=== PATIENT | female | born 1965 | race Caucasian/White ===

== ENCOUNTER 2016-06-01 15:09 | Emergency (ER) | payer OTHER ==
[2016-06-01 15:16] VITALS: TEMP 98; BMI 28.3
[2016-06-01] MEDS ORDERED: KETOROLAC TROMETHAMINE 30 MG/1 ML VIAL IVPUSH ONE (15:21)
--- NOTE | 2016-06-01 15:28 | PDOC ---
[id number] 100 06/01/16 15:14 06/01/16 15:14 06/01/16 15:14 06/01/16 15:14 06/01/16 15:14 ED Treatment Course - LABORATORY CBC & Chemistry Diagram: 06/01/16 15:40 06/01/16 15:40 Progress Note - Progress Note Progress Note: brief triage assessment hx of kidney stones with lithotripsy many years ago, presents with left flank pain pm and off for 2 weeks, now steady since 2 days ago. Nausea but no vomiting since 2 days ago. No fever. Pain radiates to the left lower quadrant. PMH: shoulder surgery tubal ligation x 3 for post BTL kidney stones adhesions with abd surgery x 2 exam: L flank tenderness, abd soft assess: renate and flank pain, hx of renal colic labs urine and pain meds/fluids ordered to main ED for further eval *DC/Admit/Observation/Transfer Diagnosis at time of Disposition: Left flank pain - Discharge Dispostion Disposition: HOME - Prescriptions Prescriptions: Diazepam [Valium] 5 mg PO Q8H PRN #15 tablet MDD 3 PRN Reason: Muscle Spasms - Referrals Referrals: Elizabeth Donaldson MD [Primary Care Provider] - - Patient Instructions Printed Discharge Instructions: DI for Muscle Strain Additional Instructions: Please take medication as prescribed. As discussed, do not drive or operate machinery while taking this medication. Please follow up with orthopedics this week. If you experience any loss of sensation, numbness, or tingling to your legs, loss of madelaine or bladder function, persistent vomiting or diarrhea, fever , headache, shortness of breath, chest pain, palpitations, or any new or worsening symptoms, please return to the ER.
[2016-06-01] MEDS ORDERED: SODIUM CHLORIDE 1,000 ML IV SCH (15:30)
--- NOTE | 2016-06-01 15:43 | PDOC ---
[id number] flank pain Time Seen by Provider: 06/01/16 15:20 History Source: Patient Exam Limitations: No Limitations - History of Present Illness Initial Comments: 06/01/16 15:43 CHIEF COMPLAINT: Flank pain HISTORY OF PRESENT ILLNESS: This is a 51 year old female with a distant history of kidney stones s/p lithotripsy, c/s and tubal ligation x 3 (initial failure) complicated by adhesions, and migraine headaches who presents complaining of three weeks of left flank pain. The pain was initially intermittent, but is now constant, acutely worse, and radiates to the LLQ. She reports nausea but no vomiting. She complains of constipation, but has been able to have a bowel movement today. She denies dysuria/hematuria, fevers/chills, or any other symptoms. The pain is reminiscent of her prior kidney stones. Vital signs on arrival are unremarkable. PCP is Dr. Flores. Patient is a non-smoker. REVIEW OF SYSTEMS: GENERAL/CONSTITUTIONAL: No fever or chills. No weakness. No weight change. CARDIOVASCULAR: No chest pain or palpitations. RESPIRATORY: No cough, wheezing, or shortness of breath. GASTROINTESTINAL: Nausea, constipation. GENITOURINARY: See HPI. MUSCULOSKELETAL: No joint or muscle swelling or pain. No neck or back pain. SKIN: No rash or easy bruising. NEUROLOGIC: No headache, vertigo, loss of consciousness, or loss of sensation. PSYCHIATRIC: No depression or anxiety. ENDOCRINE: No increased thirst. No abnormal weight change. HEMATOLOGIC/LYMPHATIC: No anemia, easy bleeding, or history of blood clots. ALLERGIC/IMMUNOLOGIC: History of demerol and morphine intolerance (vomiting, syncope). PHYSICAL EXAM: GENERAL: The patient is awake, alert, and fully oriented, in no acute distress. ENT: Pupils equal, round and reactive to light, extraocular movements intact, sclera anicteric, conjunctiva clear. Neck supple. LUNGS: Clear to auscultation bilaterally. Normal excursion. No respiratory distress or use of accessory muscles. CV: RRR, S1/S2, no MRG. Cap refill < 2 sec. ABDOMEN: Soft, non-distended, LLQ tenderness to deep palpation. Left CVA tenderness. EXTREMITIES: Normal range of motion, no edema. NEUROLOGICAL: Normal speech, normal gait. CN II-XII grossly intact. PSYCH: Normal mood, normal affect. SKIN: Warm, dry, normal turgor, no rashes or lesions noted. Past History - Past Medical History Allergies/Adverse Reactions: Allergies Allergy/AdvReac Type Severity Reaction Status Date / Time meperidine HCl [From Demerol] Allergy Verified 06/01/16 15:13 morphine Allergy Verified 06/01/16 15:13 Home Medications: Ambulatory Orders Diazepam [Valium] 5 mg PO Q8H PRN #15 tablet MDD 3 06/01/16 Anemia: No Asthma: Yes Cancer: No Cardiac Disorders: Yes (MVP) CVA: No COPD: No CHF: No Dementia: No Diabetes: No GI Disorders: Yes Disorders: Yes (ENDOMETRIOSIS) HTN: No Hypercholesterolemia: Yes Kidney Stones: Yes Liver Disease: No Seizures: No Thyroid Disease: Yes - Surgical History Abdominal Surgery: Yes (ADHESIONS) Appendectomy: No Cardiac Surgery: No Cholecystectomy: No Lung Surgery: No Neurologic Surgery: (scar tissue) Orthopedic Surgery: No - Immunization History Immunization Up to Date: Yes - Psycho/Social/Smoking Cessation Hx Anxiety: No Suicidal Ideation: No Smoking History: Never smoked Have you smoked in the past 12 months: No If you are a former smoker, when did you quit?: 20 YEARS [id number] WEEK Information on smoking cessation initiated: No Hx Alcohol Use: No Drug/Substance Use Hx: No Substance Use Type: None Hx Substance Use Treatment: No *Physical Exam - Vital Signs Last Vital Signs Temp Pulse Resp BP Pulse Ox 98.0 F 77 18 122/82 100 06/01/16 15:14 06/01/16 15:14 06/01/16 15:14 06/01/16 15:14 06/01/16 15:14 ED Treatment Course - LABORATORY CBC & Chemistry Diagram: 06/01/16 15:40 06/01/16 15:40 Medical Decision Making - Medical Decision Making 06/01/16 16:09 A/P: 51 year old female with left flank pain radiating to the LLQ, associated with nausea and constipation. Differential includes renal colic (patient states pain today is prior to her previous episodes), pyelonephritis, less likely diverticulitis or SBO. 1. UA/culture 2. Basic labs 3. Toradol 30mg IVP for pain 4. Renal u/s to r/o hydronephrosis 5. Re-evaluate U/s: no hydronephrosis. Patient's pain is worse than on presentation despite receiving Toradol. UA negative for blood. Will obtain CTAP. *DC/Admit/Observation/Transfer Diagnosis at time of Disposition: Left flank pain - Discharge Dispostion Disposition: HOME - Prescriptions Prescriptions: Diazepam [Valium] 5 mg PO Q8H PRN #15 tablet MDD 3 PRN Reason: Muscle Spasms - Referrals Referrals: Elizabeth Donaldson MD [Primary Care Provider] - - Patient Instructions Printed Discharge Instructions: DI for Muscle Strain Additional Instructions: Please take medication as prescribed. As discussed, do not drive or operate machinery while taking this medication. Please follow up with orthopedics this week. If you experience any loss of sensation, numbness, or tingling to your legs, loss of madelaine or bladder function, persistent vomiting or diarrhea, fever , headache, shortness of breath, chest pain, palpitations, or any new or worsening symptoms, please return to the ER.
[2016-06-01 15:49] LABS: BASOPHIL 0.4 % (0-2.0); EOSINOPHIL 2.4 % (0-4.5); MCH 29.3 pg (25.7-33.7); MCHC 32.8 g/dl (32.0-36.0); MEAN CELL VOLUME 89.4 fl (80-96); MEAN PLT VOLUME 9.3 fl (7.5-11.1); NEUTROPHILS 49.7 % (42.8-82.8); PLATELET COUNT 177 K/MM3 (134-434); RDW 14.2 % (11.6-15.6); WHITE BLOOD COUNT 8.3 K/mm3 (4.0-10.0)
[2016-06-01] MEDS ORDERED: KETOROLAC TROMETHAMINE 30 MG/1 ML VIAL ONE (15:49)
[2016-06-01 16:15] LABS: ANION GAP 11 (8-16); CALCIUM 9.6 mg/dL (8.5-10.1); CO2 29 mmol/L (21-32); CREATININE 0.8 mg/dL (0.55-1.02); GLUCOSE,RANDOM 100 mg/dL (74-106); SGOT/AST 14 U/L (15-37); SGPT/ALT 19 U/L (12-78)
[2016-06-01 16:16] LABS: ALK PHOS 74 U/L (45-117); BILIRUBIN,TOTAL 0.2 mg/dL (0.2-1.0); TOT PROT 7.8 g/dl (6.4-8.2)
[2016-06-01 17:52] LABS: URINE APPEARANCE CLEAR; URINE BILIRUBIN NEGATIVE (NEGATIVE); URINE BLOOD NEGATIVE (NEGATIVE); URINE COLOR STRAW; URINE GLUCOSE (UA) NEGATIVE (NEGATIVE); URINE KETONE NEGATIVE (NEGATIVE); URINE LEUK ESTERASE NEGATIVE (NEGATIVE); URINE NITRITE NEGATIVE (NEGATIVE); URINE PROTEIN NEGATIVE (NEGATIVE); URINE UROBILINOGEN NEGATIVE E.U./dl (0.2-1.0)
[2016-06-01] MEDS ORDERED: ACETAMINOPHEN 1000 MG/100 ML VIAL (NON FORMULARY) IVPB ONE (18:17)
[2016-06-01] MEDS ORDERED: ACETAMINOPHEN INJECTION 100 ML IVPB ONE (18:35)
[2016-06-01] MEDS ORDERED: HYDROmorphone HCL CARPU-JECT 1 MG/1 ML DISP.SYRIN IVPUSH ONE (19:25)
[2016-06-01] MEDS ORDERED: ONDANSETRON 4 MG/2 ML VIAL IVPUSH ONE (19:25)
[2016-06-01] MEDS ORDERED: ONDANSETRON 4 MG/2 ML VIAL ONE (19:38)
[2016-06-01] MEDS ORDERED: HYDROmorphone HCL CARPU-JECT 1 MG/1 ML DISP.SYRIN ONE (19:38)
[2016-06-01 19:48] VITALS: BP 120/73; PULSE 73
--- NOTE | 2016-06-01 20:02 | PDOC ---
*Physical Exam - Vital Signs Last Vital Signs Temp Pulse Resp BP Pulse Ox 98.0 F 73 18 120/73 99 06/01/16 15:14 06/01/16 19:47 06/01/16 19:47 06/01/16 19:47 06/01/16 19:47 - Physical Exam Comments: 06/01/16 21:15 Sign-out received from outgoing ER provider Aditi. Pt interviewed and examined. Ancillary studies reviewed. CT results negative. Patient continues to have marked tenderness to L flank/L lower back, now more localized to midline lumbar spine. Patient states he does not have true allergy to morphine, just that she "feels nauseous" when she gets it. -4 mg Zofran IV -0.5 mg Dilaudid Thoracic/lumbar spine x-ray to r/o bony pathology. X-rays negative for bony pathology. Discussed bone window of CT results with radiology MD Morocho, who confirms no evidence of bony patholgy. -5 mg Valium po Patient reassessed; states she is feeling much better. At this time she is sitting up in stretcher, talking to family and is well-appearing. Will discharge to home with Valium po prn rx, f/u with ortho. Advised patient to take meds as prescribed and not to drive or operate machinery while taking medication. Advised patient to f/u with orthopedics for possible MRI. Patient verbalized understanding and agrees to plan. 06/01/16 21:45 ED Treatment Course - LABORATORY CBC & Chemistry Diagram: 06/01/16 15:40 06/01/16 15:40 - ADDITIONAL ORDERS Additional order review: Laboratory Results 06/01/16 06/01/16 17:40 15:40 Sodium 142 Potassium 4.3 Chloride 102 Carbon Dioxide 29 Anion Gap 11 BUN 12 D Creatinine 0.8 Creat Clearance w eGFR > 60 Random Glucose 100 D Calcium 9.6 Total Bilirubin 0.2 D AST 14 L D ALT 19 Alkaline Phosphatase 74 Total Protein 7.8 Albumin 4.0 Urine Color Straw Urine Appearance Clear Urine pH 5.0 Ur Specific [place] 1.014 Urine Protein Negative Urine Glucose (UA) Negative Urine Ketones Negative Urine Blood Negative Urine Nitrite Negative Urine Bilirubin Negative Urine Urobilinogen Negative Ur Leukocyte Esterase Negative 06/01/16 15:40 RBC 4.64 MCV 89.4 MCHC 32.8 RDW 14.2 MPV 9.3 Neutrophils % 49.7 D Lymphocytes % 39.9 D Monocytes % 7.6 Eosinophils % 2.4 Basophils % 0.4 - Medications Given in the ED: ED Medications Discontinued Medications Generic Name Dose Route Start Last Admin Trade Name Sylvia PRN Reason Stop Dose Admin Acetaminophen 1,000 mg 06/01/16 18:17 06/01/16 18:38 Ofirmev Injection - IVPB 06/01/16 18:18 1,000 mg ONCE ONE Administration Hydromorphone HCl 0.5 mg 06/01/16 19:25 06/01/16 19:47 Dilaudid Injection - IVPUSH 06/01/16 19:26 0.5 mg ONCE ONE Administration Ketorolac Tromethamine 30 mg 06/01/16 15:21 06/01/16 15:57 Toradol Injection - IVPUSH 06/01/16 15:22 30 mg ONCE ONE Administration Ondansetron HCl 4 mg 06/01/16 19:25 06/01/16 19:47 Zofran Injection IVPUSH 06/01/16 19:26 4 mg ONCE ONE Administration *DC/Admit/Observation/Transfer Diagnosis at time of Disposition: Muscle spasm - Discharge Dispostion Disposition: HOME Condition at time of disposition: Stable Admit: No - Prescriptions Prescriptions: Diazepam [Valium] 5 mg PO Q8H PRN #15 tablet MDD 3 PRN Reason: Muscle Spasms - Referrals Referrals: Elizabeth Donaldson MD [Primary Care Provider] - - Patient Instructions Printed Discharge Instructions: DI for Muscle Strain Additional Instructions: Please take medication as prescribed. As discussed, do not drive or operate machinery while taking this medication. Please follow up with orthopedics this week. If you experience any loss of sensation, numbness, or tingling to your legs, loss of madelaine or bladder function, persistent vomiting or diarrhea, fever , headache, shortness of breath, chest pain, palpitations, or any new or worsening symptoms, please return to the ER.
[2016-06-01] MEDS ORDERED: diazePAM 5 MG TABLET PO ONE (21:02)
[2016-06-01] MEDS ORDERED: diazePAM 5 MG TABLET ONE (21:10)
== END 2016-06-01 22:07 | disposition home or self-care (01) ==
LOC: JER 15:09
PROC: 3E0337Z Introduction of Electrolytic and Water Balance Substance into Peripheral Vein, Percutaneous Approach (ICD-10-PCS; principal; 2016-06-01)
PROC: 3E033NZ Introduction of Analgesics, Hypnotics, Sedatives into Peripheral Vein, Percutaneous Approach (ICD-10-PCS; 2016-06-01)
PROC: 3E0333Z Introduction of Anti-inflammatory into Peripheral Vein, Percutaneous Approach (ICD-10-PCS; 2016-06-01)
PROC: 3E033GC Introduction of Other Therapeutic Substance into Peripheral Vein, Percutaneous Approach (ICD-10-PCS; 2016-06-01)
DX: M62.830 Muscle spasm of back (principal)
CPT/HCPCS: 36415; 72070-TC; 72100-TC; 74176; 76775-TC; 80053; 81003; 85025; 87086; 96361; 96374; 96375; 99282-25

== ENCOUNTER 2016-12-03 20:10 | Emergency (ER) | payer OTHER ==
[2016-12-03 20:16] VITALS: BP 145/93; PULSE 61; TEMP 98.7; BMI 30.2
--- NOTE | 2016-12-03 21:17 | PDOC ---
History of Present Illness - History of Present Illness Initial Comments: 12/03/16 21:18 The patient is a 51 year old female with history of nephrolithiasis, endometriosis, hyperlipidemia, and MVP, who presents to the ED complaining of diffuse abdominal discomfort with associated nausea for approximately 1 day. She also complains of associated nonbloody, nonbilious vomiting and loose stools after eating. She also admits to feeling slightly constipated. No alleviating factors. She states her abdominal discomfort is somewhat similar to previous kidney stones, but is not the same. The patient also complains of diffuse back pain for several weeks. The patient denies any fever or chills. She denies dysuria or hematuria. She denies chest pain or shortness of breath. She denies any numbness or tingling. <Linnea Paredes - Last Filed: 12/04/16 00:58> - General History Source: Patient <Moise Veloz - Last Filed: 12/04/16 01:10> - General Chief Complaint: Nausea/Vomiting Stated Complaint: STOMACH PAIN,VOMITING Time Seen by Provider: 12/03/16 21:13 Past History <Linnea Paredes - Last Filed: 12/04/16 00:58> - Past Medical History Anemia: No Asthma: Yes Cancer: No Cardiac Disorders: Yes (MVP) CVA: No COPD: No CHF: No Dementia: No Diabetes: No GI Disorders: Yes Disorders: Yes (ENDOMETRIOSIS) HTN: No Hypercholesterolemia: Yes Kidney Stones: Yes Liver Disease: No Seizures: No Thyroid Disease: Yes - Surgical History Abdominal Surgery: Yes (ADHESIONS) Appendectomy: No Cardiac Surgery: No Cholecystectomy: No Lung Surgery: No Neurologic Surgery: (scar tissue) Orthopedic Surgery: No - Immunization History Immunization Up to Date: Yes - Psycho/Social/Smoking Cessation Hx Anxiety: No Suicidal Ideation: No Smoking History: Never smoked Have you smoked in the past 12 months: No If you are a former smoker, when did you quit?: 20 YEARS [id number] WEEK Information on smoking cessation initiated: No Hx Alcohol Use: No Drug/Substance Use Hx: No Substance Use Type: None Hx Substance Use Treatment: No <Moise Veloz - Last Filed: 12/04/16 01:10> - Past Medical History Allergies/Adverse Reactions: Allergies Allergy/AdvReac Type Severity Reaction Status Date / Time meperidine HCl [From Demerol] Allergy Verified 12/03/16 20:16 morphine Allergy Verified 12/03/16 20:16 Home Medications: Ambulatory Orders Albuterol Sulfate Inhaler - [Ventolin Hfa Inhaler -] 1 - 2 inh PO QID PRN Ibuprofen 800 mg PO TID #30 tablet 12/04/16 Methocarbamol [Robaxin -] 500 mg PO TID #30 tablet 12/04/16 Oxycodone HCl/Acetaminophen [Percocet 5-325 mg Tablet] 1 - 2 tab PO Q4H #20 tablet MDD 4 12/04/16 Review of Systems - Review of Systems Able to Perform ROS?: Yes Comments:: 12/03/16 21:24 GENERAL/CONSTITUTIONAL: No fever or chills. No weakness. HEAD, EYES, EARS, NOSE AND THROAT: No change in vision. No ear pain or discharge. No sore throat CARDIOVASCULAR: No chest pain or shortness of breath. RESPIRATORY: No cough, wheezing, or hemoptysis. GASTROINTESTINAL:+diffuse abdominal pain, nausea, NBNB vomiting, constipation. No melena or hematochezia. GENITOURINARY: No dysuria, frequency, or change in urination. MUSCULOSKELETAL: +diffuse back pain. No joint swelling or pain. No neck pain. SKIN: No rash NEUROLOGIC: No headache, vertigo, loss of consciousness, or change in strength/ sensation. ENDOCRINE: No increased thirst. No abnormal weight change. HEMATOLOGIC/LYMPHATIC: No anemia, easy bleeding, or history of blood clots. ALLERGIC/IMMUNOLOGIC: No hives or skin allergy. <Linnea Paredes - Last Filed: 12/04/16 00:58> *Physical Exam - Vital Signs Last Vital Signs Temp Pulse Resp BP Pulse Ox 98.7 F 61 18 145/93 100 12/03/16 20:11 12/03/16 20:11 12/03/16 20:11 12/03/16 20:11 12/03/16 20:11 - Physical Exam Comments: 12/03/16 21:26 GENERAL: Awake, alert, and fully oriented, in no acute distress HEAD: No signs of trauma EYES: PERRLA, EOMI, sclera anicteric, conjunctiva clear ENT: Auricles normal inspection, hearing grossly normal, nares patent, oropharynx clear without exudates. Moist mucosa NECK: Normal ROM, supple, no lymphadenopathy, JVD, or masses LUNGS: Breath sounds equal, clear to auscultation bilaterally. No wheezes, and no crackles HEART: Regular rate and rhythm, normal S1 and S2, no murmurs, rubs or gallops ABDOMEN: Soft, no tenderness to palpation in all four quadrants, normoactive bowel sounds. No guarding, no rebound. No masses BACK: +Bilateral paraspinal tenderness, slightly worse on the right than the left. No midline tenderness. EXTREMITIES: Normal range of motion, no edema. No clubbing or cyanosis. No cords, erythema, or tenderness NEUROLOGICAL: Cranial nerves II through XII grossly intact. Normal speech, normal gait SKIN: Warm, Dry, normal turgor, no rashes or lesions noted. <Linnea Paredes - Last Filed: 12/04/16 00:58> - Vital Signs Last Vital Signs Temp Pulse Resp BP Pulse Ox 98.7 F 61 18 145/93 100 12/03/16 20:11 12/03/16 20:11 12/03/16 20:11 12/03/16 20:11 12/03/16 20:11 <Moise Veloz - Last Filed: 12/04/16 01:10> ED Treatment Course - RADIOLOGY Radiology Studies Ordered: 12/04/16 00:59 CT of abdomen and pelvis without contrast, preliminary reading by [facility] [employer] [facility] Radiograph Interpretation: 12/04/16 00:59 IMPRESSION: Benign renal cortical cyst measuring 1.6 cm arising from the posterior pole of left kidney. Multiple phleboliths are noted within the pelvis. Disc degeneration at the L5-S1 level, with some loss of disc height and small posterior disc bulge. The study is otherwise unremarkable. . THIS DOCUMENT HAS BEEN ELECTRONICALLY SIGNED Florentino Javier MD. 12/04/2016 00:56 EST <Linnea Paredes - Last Filed: 12/04/16 00:58> Medical Decision Making - Medical Decision Making 12/04/16 01:05 Dr. Veloz: The scribe's documentation has been prepared under my direction and personally reviewed by me in its entirery. I confirm that the note above accurately reflects all work, treatment, procedures, and medical decision making performed by me. Pt found to have bulging disc to L5-S1. Neurologically intact. Pt to follow up with pcp and possible neurosurgery <Moise Veloz - Last Filed: 12/04/16 01:10> *DC/Admit/Observation/Transfer - Attestations Scribe Attestion: 12/03/16 21:28 Documentation prepared by Linnea Paredes, acting as medical chief technician for Moise Veloz MD. <Linnea Paredes - Last Filed: 12/04/16 00:58> - Discharge Dispostion Admit: No <Moise Veloz - Last Filed: 12/04/16 01:10> Diagnosis at time of Disposition: Bulging lumbar disc - Discharge Dispostion Disposition: HOME Condition at time of disposition: Stable - Prescriptions Prescriptions: Ibuprofen 800 mg PO TID #30 tablet Oxycodone HCl/Acetaminophen [Percocet 5-325 mg Tablet] 1 - 2 tab PO Q4H #20 tablet MDD 4 Methocarbamol [Robaxin -] 500 mg PO TID #30 tablet - Referrals Referrals: Elizabeth Donaldson MD [Primary Care Provider] - Manohar Drummond MD, FAANS [Staff Physician] - - Patient Instructions Printed Discharge Instructions: DI for Herniated Disc
[2016-12-03] MEDS ORDERED: KETOROLAC TROMETHAMINE 60 MG/2 ML VIAL IM ONE (21:18)
[2016-12-03] MEDS ORDERED: KETOROLAC TROMETHAMINE 60 MG/2 ML VIAL ONE (21:46)
[2016-12-03 21:50] LABS: URINE APPEARANCE CLEAR; URINE BILIRUBIN NEGATIVE (NEGATIVE); URINE BLOOD 2+ (NEGATIVE); URINE COLOR LTYELLOW; URINE GLUCOSE (UA) NEGATIVE (NEGATIVE); URINE KETONE NEGATIVE (NEGATIVE); URINE LEUK ESTERASE NEGATIVE (NEGATIVE); URINE NITRITE NEGATIVE (NEGATIVE); URINE PROTEIN NEGATIVE (NEGATIVE); URINE UROBILINOGEN NEGATIVE mg/dL (0.2-1.0)
[2016-12-03 22:06] LABS: URINE MUCUS RARE; URINE RBC 2 /hpf (0-3); URINE WBC 1 /hpf (3-5)
[2016-12-04] MEDS ORDERED: ALBUTEROL SO4 0.083% IH SOL 2.5 MG/3 ML VIAL.NEB. NEB ONE (00:03)
[2016-12-04] MEDS ORDERED: ALBUTEROL SO4 2.5/IPRATROPIUM 0.5 INH SOL 3 ML VIAL.NEB. NEB ONE (00:04)
== END 2016-12-04 01:13 | disposition home or self-care (01) ==
LOC: JER 20:10
PROC: 3E0233Z Introduction of Anti-inflammatory into Muscle, Percutaneous Approach (ICD-10-PCS; principal; 2016-12-03)
DX: M51.06 Intervertebral disc disorders with myelopathy, lumbar region (principal); E78.5 Hyperlipidemia, unspecified; I34.1 Nonrheumatic mitral (valve) prolapse; J45.909 Unspecified asthma, uncomplicated; Z87.442 Personal history of urinary calculi; Z88.6 Allergy status to analgesic agent
CPT/HCPCS: 74176; 81003; 81015; 84703; 87086; 99282-25

== ENCOUNTER 2017-03-12 12:37 | Emergency (ER) | payer OTHER ==
[2017-03-12 13:31] VITALS: BP 132/49; PULSE 68; TEMP 97.8; BMI 27.4
[2017-03-12] MEDS ORDERED: KETOROLAC TROMETHAMINE 30 MG/1 ML VIAL IVPUSH ONE (16:16)
--- NOTE | 2017-03-12 16:16 | PDOC ---
History of Present Illness <Flavia Langley - Last Filed: 03/12/17 16:47> - General History Source: Patient Exam Limitations: No Limitations - History of Present Illness Travel History: No Initial Comments: 03/12/17 16:17 The patient is a 52y F hx of kidney stones, endometriosis, HL, MVP, back pain, chronic history of constipation, presents with multiple complaints - among which are several months of constipation, lower back pain, but new to her complaints are abdominal pain and rectal bleeding. The pt states that her constipation is chronic and she has always had difficulty with stooling regularly and having hard stools. But for the past 1.5 weeks, she notes that she feels a L sided back pain that seems to worsen, and feels like she neds to go to the bathroom, but when she goes to the bathroom and tries to have a BM, she has dark red stool from her anus. She notes that it stops spontaneously after she wipes. PT endorses some nausea, but denies any fever/chills. no associated numbness/tingling/weakness, urinary symptoms. No chest pain, sob. PMD: Mark <Enio Dubose - Last Filed: 03/12/17 21:51> - General Chief Complaint: Rectal Bleed Stated Complaint: BACK PAIN Time Seen by Provider: 03/12/17 16:05 Past History <Flavia Langley - Last Filed: 03/12/17 16:47> - Past Medical History Anemia: No Asthma: Yes Cancer: No Cardiac Disorders: Yes (MVP) CVA: No COPD: No CHF: No DVT: No Dementia: No Diabetes: No Dialysis: No GI Disorders: Yes Disorders: Yes (ENDOMETRIOSIS) HTN: No Hypercholesterolemia: Yes Kidney Stones: Yes Liver Disease: No Psychiatric Problems: No Seizures: No Thyroid Disease: Yes Lung CA: No - Surgical History Abdominal Surgery: Yes (ADHESIONS) Appendectomy: No Cardiac Surgery: No Cholecystectomy: No Lung Surgery: No Neurologic Surgery: (scar tissue) Orthopedic Surgery: No - Immunization History Immunization Up to Date: Yes - Suicide/Smoking/Psychosocial Hx Smoking History: Former smoker Have you smoked in the past 12 months: No If you are a former smoker, when did you quit?: 25 yrs ago Information on smoking cessation initiated: No Hx Alcohol Use: No Drug/Substance Use Hx: No Substance Use Type: None Hx Substance Use Treatment: No <Enio Dubose - Last Filed: 03/12/17 21:51> - Past Medical History Allergies/Adverse Reactions: Allergies Allergy/AdvReac Type Severity Reaction Status Date / Time meperidine HCl [From Demerol] Allergy Verified 03/12/17 13:26 morphine Allergy Verified 03/12/17 13:26 Home Medications: Ambulatory Orders Cyclobenzaprine HCl [Flexeril -] 10 mg PO BID #21 tablet 03/12/17 Review of Systems - Review of Systems Able to Perform ROS?: Yes Comments:: 03/12/17 16:21 Constitutional - no reported Fever, Chills, HEENT: no reported vision changes, sore throat Respiratory: no reported cough, sob, hemoptysis Cardiac: no reported chest pain, palpitations, light headedness, leg swelling Abd/GI: +abd pain, blood per rectum, constipation no reported nausea, vomiting , , melena, diarrhea : no reported dysuria, frequency, discharge Musculskelatal - +back pain, no reported joint swelling skin - no reported bruising, erythema, rash neurological: no reported headache, numbness, focal weakness, tingling, ataxia, hematologic: no reported anemia, easy bruising, easy bleeding <Enio Dubose - Last Filed: 03/12/17 21:51> *Physical Exam - Vital Signs Last Vital Signs Temp Pulse Resp BP Pulse Ox 97.8 F 68 18 132/49 100 03/12/17 13:26 03/12/17 13:26 03/12/17 13:26 03/12/17 13:26 03/12/17 13:26 <Flavia Langley - Last Filed: 03/12/17 16:47> - Vital Signs Last Vital Signs Temp Pulse Resp BP Pulse Ox 97.8 F 68 18 132/49 100 03/12/17 13:26 03/12/17 13:26 03/12/17 13:26 03/12/17 13:26 03/12/17 13:26 - Physical Exam Comments: 03/12/17 16:24 GENERAL: The patient is awake, alert, and fully oriented, Nontoxic - in no acute distress. HEAD: Normocephalic, atraumatic. EYES: extraocular movements intact, sclera anicteric, conjunctiva clear. ENT: Normal voice, Moist mucous membranes. NECK: Normal range of motion, supple LUNGS: Breath sounds equal, clear to auscultation bilaterally. No wheezes, no rhonchi, no rales. HEART: Regular rate and rhythm, normal S1 and S2 without murmur, rub or gallop. ABDOMEN: Soft, very mild LLQ tenderness, normoactive bowel sounds. No guarding , no rebound. No CVA tenderness RECTAL: +external hemorroids w/o active bleeding, nonthrombosed, no tenderness/ massess, no stool in rectal vault, no signs of blood or melena EXTREMITIES: Normal range of motion, no edema. No clubbing or cyanosis. No cords, erythema, or tenderness. NEUROLOGICAL: No facial assymetry, Normal speech, PSYCH: Normal mood, normal affect. SKIN: Warm, Dry, normal turgor, <Enio Dubose - Last Filed: 03/12/17 21:51> ED Treatment Course - LABORATORY CBC & Chemistry Diagram: 03/12/17 17:00 03/12/17 17:00 <Enio Dubose - Last Filed: 03/12/17 21:51> Medical Decision Making - Medical Decision Making 03/12/17 16:26 pt presenting with combination of chronic constipation/rectal bleeding/abd pain suspect her sypmtoms may be secondary to a kidney stone resulting in her pain, and desire to stool, leading to her straining and bleeding form her hemorroids other thingson the differential includes diverticulosis, consider acs will send an ekg will give pt toradol for pain will ck cbc, cmp, lipase, ua likely imging will erasess the pt 03/12/17 21:[address] neg for any pathology suspect her back pain is secondary to herniated discs/sciatica no signs of kidney stones suspect her rectal bleeding secondary to hemorroids will c with pm dfu return precautions were discussed I discussed the physical exam findings, ancillary test results and final diagnoses with the patient. I answered all of the patient's questions. The patient was satisfied with the care received and felt comfortable with the discharge plan and treatment plan. The patient will call their primary care physician within 24 hours to arrange follow-up and will return to the Emergency Department with any new, persistent or worsening symptoms. <Enio Dubose - Last Filed: 03/12/17 21:51> *DC/Admit/Observation/Transfer <Flavia Langley - Last Filed: 03/12/17 16:47> - Discharge Dispostion Admit: No <Enio Dubose - Last Filed: 03/12/17 21:51> Diagnosis at time of Disposition: Sciatica Qualifiers: Laterality: left Qualified Code(s): M54.32 - Sciatica, left side - Discharge Dispostion Disposition: HOME Condition at time of disposition: Improved - Referrals Referrals: Elizabeth Donaldson MD [Primary Care Provider] - - Patient Instructions Printed Discharge Instructions: DI for Hemorrhoids, DI for Back Pain With Sciatica Additional Instructions: Return to the emergency department immediately with ANY new, persistent or worsening symptoms including numbness, tingling, weakness, fevers or any other concerns. Take ibuprofen (400mg)/tylenol(650mg) every 6 hours for 2 days. Take the flexeril as prescribed for your back pain/spasms. Apply heat to your sore muscles. Make sure that you are hydrating adequately, eating enough fiber to minimize or constipation. You MUST call and follow up with your doctor within 3 days for further evaluation of your symptoms. Your emergency department visit is not complete without a followup with your doctor for reevaluation.. Results were discussed with you. Please make sure your doctor reviews the results of your emergency evaluation. Print Language: YI - Post Discharge Activity
[2017-03-12] MEDS ORDERED: KETOROLAC TROMETHAMINE 30 MG/1 ML VIAL ONE (17:15)
[2017-03-12 17:17] LABS: BASOPHIL 0.5 % (0-2.0); EOSINOPHIL 2.2 % (0-4.5); MCH 29.5 pg (25.7-33.7); MCHC 32.9 g/dl (32.0-36.0); MEAN CELL VOLUME 89.5 fl (80-96); MEAN PLT VOLUME 8.5 fl (7.5-11.1); PLATELET COUNT 223 K/MM3 (134-434); RDW 15.1 % (11.6-15.6); WHITE BLOOD COUNT 7.8 K/mm3 (4.0-10.0)
[2017-03-12 17:28] LABS: URINE APPEARANCE SLCLOUDY; URINE BILIRUBIN NEGATIVE (NEGATIVE); URINE BLOOD 1+ (NEGATIVE); URINE COLOR LTYELLOW; URINE GLUCOSE (UA) NEGATIVE (NEGATIVE); URINE KETONE NEGATIVE (NEGATIVE); URINE NITRITE NEGATIVE (NEGATIVE); URINE PROTEIN NEGATIVE (NEGATIVE); URINE UROBILINOGEN NEGATIVE mg/dL (0.2-1.0)
[2017-03-12 17:43] LABS: ALBUMIN 3.8 g/dl (3.4-5.0); ANION GAP 5 (8-16); CALCIUM 9.3 mg/dL (8.5-10.1); CO2 29 mmol/L (21-32); CREATININE 0.7 mg/dL (0.55-1.02); GLUCOSE,RANDOM 81 mg/dL (74-106); SGOT/AST 10 U/L (15-37); SGPT/ALT 17 U/L (12-78)
[2017-03-12 17:45] LABS: ALK PHOS 86 U/L (45-117); BILIRUBIN,TOTAL 0.5 mg/dL (0.2-1.0); TOT PROT 7.7 g/dl (6.4-8.2)
[2017-03-12 18:35] LABS: URINE HYALINE CAST 1 /lpf; URINE MUCUS RARE; URINE RBC <1 /hpf (0-3); URINE WBC 1 /hpf (3-5)
[2017-03-12] MEDS ORDERED: diazePAM 5 MG TABLET ONE (21:40)
[2017-03-12] MEDS ORDERED: diazePAM 5 MG TABLET PO ONE ×2 (21:44→21:48)
[2017-03-12 22:49] LABS: URINE LEUK ESTERASE 1+ (NEGATIVE)
--- NOTE | 2017-03-15 23:08 | EKG ---
Test Reason : Blood Pressure : / mmHG Vent. Rate : 055 BPM Atrial Rate : 055 BPM P-R Int : 166 ms QRS Dur : 098 ms QT Int : 438 ms P-R-T Axes : 026 -33 016 degrees QTc Int : 419 ms SINUS BRADYCARDIA LEFT AXIS DEVIATION INCOMPLETE RIGHT BUNDLE BRANCH BLOCK ABNORMAL ECG WHEN COMPARED WITH ECG OF 30-NOV-2013 18:29, NO SIGNIFICANT CHANGE WAS FOUND Confirmed by ECHO STREETER MD ([id number]) on 03/15/2017 11:08:47 PM Referred By: Confirmed By:ECHO STREETER MD
== END 2017-03-12 21:59 | disposition home or self-care (01) ==
LOC: JER 12:37
PROC: 3E0333Z Introduction of Anti-inflammatory into Peripheral Vein, Percutaneous Approach (ICD-10-PCS; principal; 2017-03-12)
DX: M54.42 Lumbago with sciatica, left side (principal); K64.4 Residual hemorrhoidal skin tags
CPT/HCPCS: 36415; 74176-TC; 80053; 81003; 81015; 83605; 83690; 85025; 93005; 93010; 96374; 99284-25

== ENCOUNTER 2017-03-20 16:13 | Emergency (ER) | payer OTHER ==
[2017-03-20 16:18] VITALS: BP 136/87; PULSE 69; TEMP 98; BMI 27.4
--- NOTE | 2017-03-20 16:51 | PDOC ---
History of Present Illness - General Chief Complaint: Injury Stated Complaint: INJURY Time Seen by Provider: 03/20/17 16:31 History Source: Patient Exam Limitations: No Limitations - History of Present Illness Initial Comments: 03/20/17 16:48 52 year old female s/p fall complaining of pain to right wrist. States tripped and fell onto out stretched arm. Also reports exacerbation of left shoulder when she fell. Patient states she had past surgery in left shoulder. Occurred: reports: yesterday Severity: reports: mild Upper Extremity Pain Location: left: hand, wrist Method of Injury: reports: fell Modifying Factors: improves with: immobilization Past History - Travel Traveled outside of the country in the last 30 days: No Close contact w/someone who was outside of country & ill: No - Past Medical History Allergies/Adverse Reactions: Allergies Allergy/AdvReac Type Severity Reaction Status Date / Time meperidine HCl [From Demerol] Allergy Verified 03/20/17 16:18 morphine Allergy Verified 03/20/17 16:18 Home Medications: Ambulatory Orders Ibuprofen 800 mg PO TID #30 tablet 03/20/17 Anemia: No Asthma: Yes Cancer: No Cardiac Disorders: Yes (MVP) CVA: No COPD: No CHF: No DVT: No Dementia: No Diabetes: No Dialysis: No GI Disorders: Yes Disorders: Yes (ENDOMETRIOSIS) HTN: No Hypercholesterolemia: Yes Kidney Stones: Yes Liver Disease: No Psychiatric Problems: No Seizures: No Thyroid Disease: Yes Lung CA: No - Surgical History Abdominal Surgery: Yes (ADHESIONS) Appendectomy: No Cardiac Surgery: No Cholecystectomy: No Lung Surgery: No Neurologic Surgery: (scar tissue) Orthopedic Surgery: No - Immunization History Immunization Up to Date: Yes - Suicide/Smoking/Psychosocial Hx Smoking History: Never smoked Have you smoked in the past 12 months: No If you are a former smoker, when did you quit?: 25 yrs ago Hx Alcohol Use: No Drug/Substance Use Hx: No Substance Use Type: None Hx Substance Use Treatment: No Review of Systems - Review of Systems Able to Perform ROS?: Yes Is the patient limited Guyanese proficient: No Constitutional: No: Chills, Fever HEENTM: No: Cataracts, Throat Swelling Respiratory: No: Orthopnea, Stridor, Wheezing, Productive cough Cardiac (ROS): No: Chest Pain, Lightheadedness : No: Hematuria, Testicular Pain Musculoskeletal: Yes: Joint Pain, Joint Swelling Integumentary: No: Change in Hair/Nails, Dryness, Erythema, Pruritus Neurological: No: Headache, Tingling, Dizziness Psychiatric: No: Frequent Crying Endocrine: No: Excessive Sweating, Intolerance to Heat *Physical Exam - Vital Signs Last Vital Signs Temp Pulse Resp BP Pulse Ox 98.0 F 69 20 136/87 100 03/20/17 16:15 03/20/17 16:15 03/20/17 16:15 03/20/17 16:15 03/20/17 16:15 - Physical Exam General Appearance: Yes: Nourished, Appropriately Dressed. No: Apparent Distress HEENT: positive: EOMI, YAQUELIN, TMs Normal, Pharynx Normal. 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 NML intact Procedures - Splinting Splint Location: Left: Wrist Splint Type: Yes: Volar, Wrist Post-Proc Neuro Vasc Exam: unchanged from pre-exam Roverto Bandage: 3" Sling: Yes Complications: No Post splint xray: No Good repositioning: Yes Medical Decision Making - Medical Decision Making 03/20/17 16:52 52 year old female with left wrist pain after fall last night xray analgesia 03/20/17 18:38 xray: read by me with lunate, triquetrum and capitate fractures volar spling placed referred to orthopedic *DC/Admit/Observation/Transfer Diagnosis at time of Disposition: Wrist fracture, left Qualifiers: Encounter type: initial encounter Fracture type: closed Qualified Code(s): S62.102A - Fracture of unspecified carpal bone, left wrist, initial encounter for closed fracture - Discharge Dispostion Disposition: HOME Condition at time of disposition: Good Admit: No - Prescriptions Prescriptions: Ibuprofen 800 mg PO TID #30 tablet - Referrals Referrals: Elizabeth Donaldson MD [Primary Care Provider] - Eilas Lantigua MD [Staff Physician] - - Patient Instructions Printed Discharge Instructions: How to Use a Sling Additional Instructions: *Please keep splint in place clean and dry *keep arm elevated when at rest *may wear spling when up and about *Call orthopedic for follow up appointment - Post Discharge Activity Forms/Work/School Notes: Back to Work
== END 2017-03-20 18:47 | disposition home or self-care (01) ==
LOC: JERFT 16:13
PROC: 2W3DX1Z Immobilization of Left Lower Arm using Splint (ICD-10-PCS; principal; 2017-03-20)
DX: S62.102A Fracture of unspecified carpal bone, left wrist, initial encounter for closed fracture (principal); W18.39XA Other fall on same level, initial encounter; Y93.89 Activity, other specified; Y92.9 Unspecified place or not applicable; J45.909 Unspecified asthma, uncomplicated; I34.1 Nonrheumatic mitral (valve) prolapse; E78.00 Pure hypercholesterolemia, unspecified; E07.9 Disorder of thyroid, unspecified
CPT/HCPCS: 73110-TC-LT; 73130-TC-LT; 99281-25

== ENCOUNTER 2017-08-04 15:22 | Observation (INO) | payer OTHER ==
--- NOTE | 2017-08-04 16:27 | PDOC ---
History of Present Illness - General Stated Complaint: ABD PAIN Time Seen by Provider: 08/04/17 15:57 - History of Present Illness Initial Comments: 08/04/17 16:31 52 year old female with a PMH of hypothyroidism, nephrolithiasis, asthma presents with 1 year h/o LLQ abdominal pain. Pain is sharp, 10/10 non- radiating with no identifiable triggering or relieving factors. Patient notes daily episodes of watery stools and 1 week h/o yellowish colored emesis. Denies fevers/chills. Not tolerating PO intake. Was evaluated at [facility] last week at which time she was given an antibiotic - patient cannot remember the name and states she thinks she had a CT scan. Patient further notes she saw GI , Dr. Frances, yesterday who told her she should go to the ED for her pain. Patient further states she was evaluated by her PMD, Dr. Flores earlier today with the same instruction. Allergy: Morphine, Meperidine Surgical: Tubal Ligation x3 Social: denies cigarettes, denies recreational drugs PMD: Dr. Flores Past History - Past Medical History Allergies/Adverse Reactions: Allergies Allergy/AdvReac Type Severity Reaction Status Date / Time meperidine HCl [From Demerol] Allergy Verified 03/20/17 16:18 morphine Allergy Verified 03/20/17 16:18 Home Medications: Ambulatory Orders Levothyroxine [Synthroid -] 50 mcg PO DAILY 08/04/17 Anemia: No Asthma: Yes Cancer: No Cardiac Disorders: Yes (MVP) CVA: No COPD: No CHF: No DVT: No Dementia: No Diabetes: No Dialysis: No GI Disorders: Yes Disorders: Yes (ENDOMETRIOSIS) HTN: No Hypercholesterolemia: Yes Kidney Stones: Yes Liver Disease: No Psychiatric Problems: No Seizures: No Thyroid Disease: Yes Lung CA: No - Surgical History Abdominal Surgery: Yes (ADHESIONS) Appendectomy: No Cardiac Surgery: No Cholecystectomy: No Lung Surgery: No Neurologic Surgery: (scar tissue) Orthopedic Surgery: No - Immunization History Immunization Up to Date: Yes - Suicide/Smoking/Psychosocial Hx Smoking History: Former smoker Have you smoked in the past 12 months: No If you are a former smoker, when did you quit?: 25 yrs ago Information on smoking cessation initiated: No Hx Alcohol Use: No Drug/Substance Use Hx: No Substance Use Type: None Hx Substance Use Treatment: No *Physical Exam - Vital Signs Last Vital Signs Temp Pulse Resp BP Pulse Ox 97.4 F L 73 16 111/74 97 08/04/17 15:36 08/04/17 15:36 08/04/17 15:36 08/04/17 15:36 08/04/17 15:36 - Physical Exam Comments: 08/05/17 07:22 GENERAL: Awake, alert, and fully oriented, in no acute distress HEAD: No signs of trauma EYES: PERRLA, EOMI, sclera anicteric, conjunctiva clear ENT: Auricles normal inspection, hearing grossly normal, nares patent, oropharynx clear without exudates. Moist mucosa NECK: Nontender, no stepoffs, Normal ROM, supple, no lymphadenopathy, JVD, or masses LUNGS: Breath sounds equal, clear to auscultation bilaterally. No wheezes, and no crackles HEART: Regular rate and rhythm, normal S1 and S2, no murmurs, rubs or gallops ABDOMEN: LLQ TTP with mild guarding, (+) bowel sounds EXTREMITIES: Normal range of motion, no edema. No clubbing or cyanosis. No cords, erythema, or tenderness NEUROLOGICAL: Cranial nerves II through XII intact. 5/5 strength and sensation in all extremities, Normal speech, normal gait, normal cerebellar function SKIN: Warm, Dry, normal turgor, no rashes or lesions noted. MSK: B/L paraspinal tenderness (noted to be chronic), no midline C/T/L/S spinal tenderne ED Treatment Course - LABORATORY CBC & Chemistry Diagram: 08/04/17 16:30 08/04/17 16:30 Medical Decision Making - Medical Decision Making 08/04/17 16:32 52 year old female with chronic abdominal pain > 1 year duration; notes 1 week h /o emesis. Recent treatment with unknown abx for possible colitis vs diverticulitis. Frontal diagnosis includes: SBO, diverticulitis, colitis, gastroenteritis. Will obtain belly labs and CT abdomen. 08/04/17 16:33 Case d/w Dr. King @ [facility]. Patient presented last week c/o 5 year h/o bloody stool + abdominal/flank pain. CT scan showed no SBO, GB/spleen/kidney normal. Patient started on Flagyll and Cipro for presumed diverticulitis without any specific findings on CT. 08/04/17 18:16 CBC shows no leukocytosis--; CMP pending. Dr. Frances (GI) @ bedside. Note he evaluated patient yesterday. Requests Flagyll and Ceftriaxone for failed outpatient GI treatment and admission for further evaluation including possible colonoscopy. 08/04/17 18:52 Patient signed out to Dr. Phillips (Resident) and Dr. Schreiber (Attending) - patient @ CT. Planned disposition will admit to hospitalist medicine service for further evaluation -- likely 2/2 to failed outpatient diverticulosis treatment. *DC/Admit/Observation/Transfer Diagnosis at time of Disposition: Abdominal pain - Referrals - Patient Instructions - Post Discharge Activity
[2017-08-04] MEDS ORDERED: FAMOTIDINE IV 20 MG/12 ML VIAL IVPUSH ONE (16:29)
[2017-08-04] MEDS ORDERED: SODIUM CHLORIDE 0.9% 500 ML INFUS.BAG IV ONE ×2 (16:29→18:53)
[2017-08-04] MEDS ORDERED: FAMOTIDINE 20 MG/50 ML IVPB 20 MG/50 ML MG IVPB ONE (16:49)
[2017-08-04 16:57] LABS: BASO % 0.5 % (0-2.0); EOS % 1.6 % (0-4.5); HEMATOCRIT 40.2 % (32.4-45.2); HEMOGLOBIN 13.4 GM/dL (10.7-15.3); MCH 29.9 pg (25.7-33.7); MCHC 33.4 g/dl (32.0-36.0); MEAN CELL VOLUME 89.5 fl (80-96); MEAN PLT VOLUME 9.1 fl (7.5-11.1); MONO % 8.3 % (3.8-10.2); NEUT % 52.6 % (42.8-82.8); PLATELET COUNT 215 K/MM3 (134-434); RDW 15.2 % (11.6-15.6); WHITE BLOOD COUNT 7.5 K/mm3 (4.0-10.0)
[2017-08-04 17:01] LABS: URINE APPEARANCE CLEAR; URINE BILIRUBIN NEGATIVE (<2.0 mg/dL); URINE BLOOD NEGATIVE (NEGATIVE); URINE COLOR YELLOW; URINE GLUCOSE (UA) NEGATIVE (NEGATIVE); URINE KETONE NEGATIVE (NEGATIVE); URINE LEUK ESTERASE TRACE (NEGATIVE); URINE NITRITE NEGATIVE (NEGATIVE); URINE PROTEIN NEGATIVE (NEGATIVE); URINE UROBILINOGEN NEGATIVE mg/dL (0.2-1.0)
[2017-08-04 17:02] LABS: HCG,QUALITATIVE URINE NEGATIVE
[2017-08-04 17:04] LABS: EPI CELLS RARE /HPF (FEW); URINE MUCUS RARE
[2017-08-04 17:40] LABS: ALBUMIN 4.1 g/dl (3.4-5.0); ANION GAP 5 (8-16); BLOOD UREA NITROGEN 8 mg/dL (7-18); CALCIUM 9.2 mg/dL (8.5-10.1); CHLORIDE 105 mmol/L (98-107); CO2 29 mmol/L (21-32); GLUCOSE,RANDOM 74 mg/dL (74-106); LIPASE 78 U/L (73-393); SODIUM 139 mmol/L (136-145)
[2017-08-04 17:43] LABS: ALK PHOS 93 U/L (45-117); BILIRUBIN,TOTAL 0.1 mg/dL (0.2-1.0); CREATININE 0.6 mg/dL (0.55-1.02); SGOT/AST 18 U/L (15-37); SGPT/ALT 19 U/L (12-78); TOT PROT 8.1 g/dl (6.4-8.2)
--- NOTE | 2017-08-04 18:42 | PDOC ---
Attending Attestation - Resident Resident Name: Carmella Salazar - ED Attending Attestation I have performed the following: I have examined & evaluated the patient, The case was reviewed & discussed with the resident, I agree w/resident's findings & plan, Exceptions are as noted - HPI HPI: 08/04/17 18:38 "The patient is a 52 year female, with a significant past medical history of asthma, mitral valve prolapse, endometriosis, hyperlipidemia, and kidney stones , who presents to the emergency department with diffuse abdominal pain for approximately 1 year. The patient reports her pain is sharp and nonradiating in nature. She does not report any exacerbating or alleviating factors. She reports associated watery stools for 1 year. Patient reports going to [facility] 1 week ago with similar symptoms, where she had a CT Abdomen and Pelvis, which revealed diverticulosis without evidence of diverticulitis. Patient was started on Flagyl at the time. Since then, pt reports worsening pain as well as increased nausea and vomiting. Reports compliance with her flagyl. Pt states she saw Dr. Frances yesterday and was instructed to come to ER for eval. - Physicial Exam PE: 08/04/17 18:38 "GENERAL: Awake, alert, and fully oriented, in no acute distress. HEAD: No signs of trauma EYES: PERRLA, EOMI, sclera anicteric, conjunctiva clear ENT: Auricles normal inspection, hearing grossly normal, nares patent, oropharynx clear without exudates. Moist mucosa NECK: Nontender, no stepoffs, Normal ROM, supple, no lymphadenopathy, JVD, or masses LUNGS: Breath sounds equal, clear to auscultation bilaterally. No wheezes, and no crackles HEART: Regular rate and rhythm, normal S1 and S2, no murmurs, rubs or gallops ABDOMEN: + LLQ tenderness, normoactive bowel sounds. No guarding, no rebound. No masses EXTREMITIES: Normal range of motion, no edema. No clubbing or cyanosis. No cords, erythema, or tenderness NEUROLOGICAL: Cranial nerves II through XII intact. 5/5 strength and sensation in all extremities, Normal speech, normal gait, normal cerebellar function SKIN: Warm, Dry, normal turgor, no rashes or lesions noted. " - Medical Decision Making 08/04/17 18:38 52 F with chronic LLQ pain acutely worsening over the past week, now with N+V. Continues to have diarrhea. Exam with +LLQ tenderness. Possible colitis/ diverticulitis, though CT last week was negative. Pt's N+V possibly GI upset 2/ [address] today to r/o abscess/perf. Dr. Frances at bedside, recommending admission for IV abx given outpt failure of flagyl. - Labs, UA - CT - Likely admit
--- NOTE | 2017-08-04 19:51 | PDOC ---
*Physical Exam - Vital Signs Last Vital Signs Temp Pulse Resp BP Pulse Ox 97.4 F L 73 16 111/74 97 08/04/17 15:36 08/04/17 15:36 08/04/17 15:36 08/04/17 15:36 08/04/17 15:36 ED Treatment Course - LABORATORY CBC & Chemistry Diagram: 08/04/17 16:30 08/04/17 16:30 - ADDITIONAL ORDERS Additional order review: Laboratory Results 08/04/17 08/04/17 08/04/17 16:44 16:40 16:30 Sodium 139 Potassium 4.0 Chloride 105 Carbon Dioxide 29 Anion Gap 5 L BUN 8 Creatinine 0.6 Creat Clearance w eGFR > 60 Random Glucose 74 Lactic Acid 0.9 Calcium 9.2 Total Bilirubin 0.1 L D AST 18 ALT 19 Alkaline Phosphatase 93 Total Protein 8.1 Albumin 4.1 Lipase 78 Urine Color Yellow Urine Appearance Clear Urine pH 7.0 D Ur Specific [place] 1.016 Urine Protein Negative Urine Glucose (UA) Negative Urine Ketones Negative Urine Blood Negative Urine Nitrite Negative Urine Bilirubin Negative Urine Urobilinogen Negative Ur Leukocyte Esterase Trace Urine WBC (Auto) 1 Urine RBC (Auto) 2 Ur Epithelial Cells Rare Urine Mucus Rare Urine HCG, Qual Negative 08/04/17 16:30 RBC 4.50 MCV 89.5 MCHC 33.4 RDW 15.2 MPV 9.1 Neutrophils % 52.6 Lymphocytes % 37.0 Monocytes % 8.3 Eosinophils % 1.6 Basophils % 0.5 - Medications Given in the ED: ED Medications Discontinued Medications Generic Name Dose Route Start Last Admin Trade Name Freq PRN Reason Stop Dose Admin Famotidine 20 mg in 12 mls @ 144 mls/hr 08/04/17 16:29 08/04/17 16:50 Pepcid 20 Mg/12 Ml Push IVPUSH 08/04/17 16:33 144 mls/hr ONCE ONE Administration Sodium Chloride 1,000 ml 08/04/17 16:29 08/04/17 16:48 Normal Saline - IV 08/04/17 16:30 1,000 ml ONCE ONE Administration *DC/Admit/Observation/Transfer Diagnosis at time of Disposition: Abdominal pain - Discharge Dispostion Admit: Yes - Referrals - Patient Instructions - Post Discharge Activity
--- NOTE | 2017-08-04 20:47 | HP ---
CHIEF COMPLAINT: abdominal pain PCP: Dr. Flores HISTORY OF PRESENT ILLNESS: Patient is 52 yo F with a PMHx of hypothyroidism, nephrolithiasis, asthma, presented to the ED because of 10/10, constant, sharp, LLQ abdominal pain over the last year which radiates to her back. Movement and laying on her back aggravates the pain. She says she has been in and out of hospitals with no answers. She went to the [facility] ER last week and they discharged her with an unknown antibiotic which she says has a few days left. Patient also reports having watery diarrhea over the last 2 weeks with BRBPR. She has been having 3-5 BM a day. She says she has a poor appetite with a 10 pound weight loss over the last 2 months. She says she vomits everything that she eats, with 4 episodes of vomiting in the past 24 hours. Last colonoscopy was 5 years ago and does not know results. She denies fevers, dysuria, Sob, chest pain, dizziness, and cough. ER course was notable for: (1) Flagyl, IV fluids Recent Travel: n/a PAST MEDICAL HISTORY: per HPI PAST SURGICAL HISTORY: ovarian cyst removal, tubal ligations Social History: Smoking: denies Alcohol: denies Drugs: Marijuana Family History: Allergies meperidine HCl [From Demerol] Allergy (Verified 03/20/17 16:18) morphine Allergy (Verified 03/20/17 16:18) HOME MEDICATIONS: Home Medications Medication Instructions Recorded Ibuprofen 800 mg PO TID #30 tablet 03/20/17 REVIEW OF SYSTEMS CONSTITUTIONAL: chills, loss of appetite, weight change Absent: fever, diaphoresis, generalized weakness, malaise, HEENT: Absent: rhinorrhea, nasal congestion, throat pain CARDIOVASCULAR: Absent: chest pain, syncope, palpitations, irregular heart rate, lightheadedness , peripheral edema RESPIRATORY: Absent: cough, shortness of breath, dyspnea with exertion, orthopnea, wheezing, stridor, hemoptysis GASTROINTESTINAL: abdominal, nausea, vomiting, diarrhea, hematochezia Absent: abdominal distension, nausea, constipation, melena GENITOURINARY: Absent: dysuria, frequency, urgency, hesitancy, hematuria, flank pain, genital pain MUSCULOSKELETAL: Absent: myalgia, arthralgia, joint swelling, back pain, neck pain SKIN: Absent: rash, itching, pallor HEMATOLOGIC/IMMUNOLOGIC: Absent: easy bleeding, easy bruising, lymphadenopathy, frequent infections ENDOCRINE: Absent: unexplained weight gain, unexplained weight loss, heat intolerance, cold intolerance NEUROLOGIC: Absent: headache, focal weakness or paresthesias, dizziness, unsteady gait, seizure, mental status changes, bladder or bowel incontinence PSYCHIATRIC: Absent: anxiety, depression, suicidal or homicidal ideation, hallucinations. PHYSICAL EXAMINATION Vital Signs - 24 hr 08/04/17 15:36 Temperature 97.4 F L Pulse Rate 73 Respiratory 16 Rate Blood Pressure 111/74 O2 Sat by Pulse 97 Oximetry (%) GENERAL: in moderate distress, a/o x 3 HEAD: Normal with no signs of trauma. EYES: Pupils equal, round and reactive to light, extraocular movements intact, sclera anicteric, conjunctiva clear. EARS, NOSE, THROAT: oropharynx clear without exudates. Moist mucous membranes. NECK: Normal range of motion, supple without lymphadenopathy, JVD, or masses. LUNGS: Breath sounds equal, clear to auscultation bilaterally. No wheezes, and no crackles. No accessory muscle use. HEART: Regular rate and rhythm, normal S1 and S2 without murmur, rub or gallop. ABDOMEN: Soft, +BS, LLQ TTP, +guarding, +L CVA tenderness UPPER EXTREMITIES: 2+ pulses, warm, well-perfused. No cyanosis. No clubbing. No peripheral edema. LOWER EXTREMITIES: 2+ pulses, warm, well-perfused. No calf tenderness. No peripheral edema. NEUROLOGICAL: Cranial nerves II-XII intact. Normal speech. Normal gait. PSYCHIATRIC: Cooperative. Good eye contact. Appropriate mood and affect. SKIN: Warm, dry, normal turgor, no rashes or lesions noted, normal capillary refill. Laboratory Results - last 24 hr 08/04/17 08/04/17 08/04/17 16:30 16:30 16:40 WBC 7.5 RBC 4.50 Hgb 13.4 Hct 40.2 MCV 89.5 MCH 29.9 MCHC 33.4 RDW 15.2 Plt Count 215 MPV 9.1 Neutrophils % 52.6 Lymphocytes % 37.0 Monocytes % 8.3 Eosinophils % 1.6 Basophils % 0.5 Sodium 139 Potassium 4.0 Chloride 105 Carbon Dioxide 29 Anion Gap 5 L BUN 8 Creatinine 0.6 Creat Clearance w eGFR > 60 Random Glucose 74 Lactic Acid Calcium 9.2 Total Bilirubin 0.1 L D AST 18 ALT 19 Alkaline Phosphatase 93 Total Protein 8.1 Albumin 4.1 Lipase 78 Urine Color Yellow Urine Appearance Clear Urine pH 7.0 D Ur Specific [place] 1.016 Urine Protein Negative Urine Glucose (UA) Negative Urine Ketones Negative Urine Blood Negative Urine Nitrite Negative Urine Bilirubin Negative Urine Urobilinogen Negative Ur Leukocyte Esterase Trace Urine WBC (Auto) 1 Urine RBC (Auto) 2 Ur Epithelial Cells Rare Urine Mucus Rare Urine HCG, Qual Negative 08/04/17 16:44 WBC RBC Hgb Hct MCV MCH MCHC RDW Plt Count MPV Neutrophils % Lymphocytes % Monocytes % Eosinophils % Basophils % Sodium Potassium Chloride Carbon Dioxide Anion Gap BUN Creatinine Creat Clearance w eGFR Random Glucose Lactic Acid 0.9 Calcium Total Bilirubin AST ALT Alkaline Phosphatase Total Protein Albumin Lipase Urine Color Urine Appearance Urine pH Ur Specific [place] Urine Protein Urine Glucose (UA) Urine Ketones Urine Blood Urine Nitrite Urine Bilirubin Urine Urobilinogen Ur Leukocyte Esterase Urine WBC (Auto) Urine RBC (Auto) Ur Epithelial Cells Urine Mucus Urine HCG, Qual ASSESSMENT/PLAN: 52 yo F with a PMHx of hypothyroidism, nephrolithiasis, asthma, presented to the ED for abdominal pain. #Abdominal Pain -possible colitis vs diverticulitis? -CT A/P: unremarkable -IV fluids -NPO -GI consulted: Dr. Frances for possible colonoscopy -Stool wbc, gram stain, O&P -Stool Occult -IV abx: Flagyl q8h, failed outpatient tx -Toradol 15mg q6h for pain control #Hypothyroidism -cont. Home meds -Med rec #FEN -IV fluids NS @ 83ml/hour -WNL -NPO #PPX -SCDs Med-surge Visit type - Emergency Visit Emergency Visit: Yes ED Registration Date: 08/04/17 Care time: The patient presented to the Emergency Department on the above date and was hospitalized for further evaluation of their emergent condition. - New Patient This patient is new to me today: Yes Date on this admission: 08/05/17 - Critical Care Critical Care patient: No Hospitalist Screening - Colonoscopy Questionnaire Colonoscopy Questionnaire: Colonoscopy Questionnaire - Patient: 50 - 75 years old and never had a screening colonoscopy: Unknown History of colon or rectal polyps, or CA: Unknown History of IBD, Crohn's disease or UC: Unknown History of abdominal radiation therapy as a child: Unknown - Relative: 1 with colon or rectal CA, or polyps at age 60 or younger: Unknown Colon or rectal CA diagnosed at age 45 or younger: Unknown Multiple relatives with colon or rectal CA: Unknown - Outcome: Screening Result: Negative Screen
[2017-08-04] MEDS ORDERED: KETOROLAC TROMETHAMINE 15 MG/ML VIAL ONE (20:52)
[2017-08-04] MEDS: KETOROLAC TROMETHAMINE 15 MG/ML VIAL IVPUSH PRN (20:58)
--- NOTE | 2017-08-04 21:26 | PN ---
Teaching Attending Note Name of Resident: Eliane Sinha ATTENDING PHYSICIAN STATEMENT I saw and evaluated the patient. I reviewed the resident's note and discussed the case with the resident. I agree with the resident's findings and plan as documented. SUBJECTIVE: This is a 52 year old woman with a history of hypothyroidism, gallstones, adhesions secondary to tubal ligation x3 who comes to the ED complaining of LLQ abdominal pain x 1 year. She says she has been to the EDs at 3 different hospitals. Last week, she went to the ED at [facility] and she was discharged with an antibiotic. She does not know which antibiotic. She reports nausea, vomiting, diarrhea, loss of appetite, weight loss. She says the pain only gets better if she leans forward. She reports having a colonoscopy 5 years ago. OBJECTIVE: Vital Signs Period Temp Pulse Resp BP Sys/Garcia Pulse Ox Last 24 Hr 97.4 F 73 16 111/74 97 HEART: S1S2, RRR LUNGS: Clear ABDOMEN: Soft, non-distended, (+) LLQ tenderness, normal BS BACK: (+) left flank tenderness, no spinal/paraspinal tenderness EXTREMITIES: No edema Laboratory Tests 08/04/17 08/04/17 08/04/17 16:30 16:30 16:40 WBC 7.5 RBC 4.50 Hgb 13.4 Hct 40.2 MCV 89.5 MCH 29.9 MCHC 33.4 RDW 15.2 Plt Count 215 MPV 9.1 Neutrophils % 52.6 Lymphocytes % 37.0 Monocytes % 8.3 Eosinophils % 1.6 Basophils % 0.5 Sodium 139 Potassium 4.0 Chloride 105 Carbon Dioxide 29 Anion Gap 5 L BUN 8 Creatinine 0.6 Creat Clearance w eGFR > 60 Random Glucose 74 Lactic Acid Calcium 9.2 Total Bilirubin 0.1 L D AST 18 ALT 19 Alkaline Phosphatase 93 Total Protein 8.1 Albumin 4.1 Lipase 78 Urine Color Yellow Urine Appearance Clear Urine pH 7.0 D Ur Specific [place] 1.016 Urine Protein Negative Urine Glucose (UA) Negative Urine Ketones Negative Urine Blood Negative Urine Nitrite Negative Urine Bilirubin Negative Urine Urobilinogen Negative Ur Leukocyte Esterase Trace Urine WBC (Auto) 1 Urine RBC (Auto) 2 Ur Epithelial Cells Rare Urine Mucus Rare Urine HCG, Qual Negative 08/04/17 16:44 WBC RBC Hgb Hct MCV MCH MCHC RDW Plt Count MPV Neutrophils % Lymphocytes % Monocytes % Eosinophils % Basophils % Sodium Potassium Chloride Carbon Dioxide Anion Gap BUN Creatinine Creat Clearance w eGFR Random Glucose Lactic Acid 0.9 Calcium Total Bilirubin AST ALT Alkaline Phosphatase Total Protein Albumin Lipase Urine Color Urine Appearance Urine pH Ur Specific [place] Urine Protein Urine Glucose (UA) Urine Ketones Urine Blood Urine Nitrite Urine Bilirubin Urine Urobilinogen Ur Leukocyte Esterase Urine WBC (Auto) Urine RBC (Auto) Ur Epithelial Cells Urine Mucus Urine HCG, Qual Home Medications Medication Instructions Recorded Ibuprofen 800 mg PO TID #30 tablet 03/20/17 ASSESSMENT AND PLAN: This is a 52 year old woman with a history of hypothyroidism, gallstones, adhesions secondary to tubal ligation x3 who comes to the ED complaining of LLQ abdominal pain x 1 year. 1. Abdominal pain with nausea, vomiting, weight loss - CT is unremarkable - Still having symptoms after course of antibiotics - NPO - IV fluid - Pain control - Zofran as needed for nausea - GI consult - Consider imaging of lumbar spine 2. Hypothyroidism - Continue Synthroid
[2017-08-04] MEDS ORDERED: HEPARIN NA (PORCINE) 5,000 UNITS/ML 1ML VIAL SQ SCH (22:00)
[2017-08-04] MEDS: SODIUM CHLORIDE 1,000 ML IV SCH (22:42)
[2017-08-04 23:29] VITALS: BMI 28.1
[2017-08-05] MEDS: ONDANSETRON 4 MG/2 ML VIAL IVPUSH PRN (04:59)
[2017-08-05] MEDS: KETOROLAC TROMETHAMINE 15 MG/ML VIAL IVPUSH PRN (05:02)
--- NOTE | 2017-08-05 07:15 | PN ---
Physical Exam: SUBJECTIVE: Patient seen and examined by me this AM - Pt endorses one year of chronic LLQ/RLQ pain, in addition to L LE numbness/ weakness; pt states she feels that her leg is "feels squashed" when she walks and symptoms become worse when sitting or lying bed. Pt also endorses midline lumbar pain in back. Pt states she has been having intermittent scant hematochezia for last 5-6 months, however it has been becoming more frequent recently; Pt seen by Dr. Frances as outpt; states her L leg symptoms have been attributed to "pinched nerve" and has recently been hospitalized at [facility]; Pt states she received a colonoscopy five yeras ago by Dr. Cavazos, which was notable for internal hemorrhoids and "something on the L side that he didnt want to touch"; Pt denies f/c/n/v/d, chest pain , cough, sob, BAR; She does endorses lightheadedness, but no changes in appetite or weight loss; endorses chronic constipation OBJECTIVE: Vital Signs Intake & Output 08/02/17 08/03/17 08/04/17 08/05/17 23:59 23:59 23:59 23:59 Weight 69.882 kg Period Temp Pulse Resp BP Sys/Garcia Pulse Ox Last 24 Hr 97.4 F-98.6 F 63-77 16-20 104-129/60-74 97 GENERAL: Middle-aged woman, NAD HEAD: NCAT EYES: PERRL, extraocular movements intact, sclera anicteric, conjunctiva clear. No ptosis. ENT: Ears normal, nares patent, oropharynx clear without exudates, moist mucous membranes. NECK: Trachea midline, full range of motion, supple. LUNGS: Breath sounds equal, clear to auscultation bilaterally, no wheezes, no crackles, no accessory muscle use. HEART: Regular rate and rhythm, S1, S2 without murmur, rub or gallop. ABDOMEN: TTP in RLQ/LLQ. Negative green's. No rebound tenderness. Normoactive bowel sounds. No hepatomegaly. EXTREMITIES: Limited R shoulder abduction secondary to rotator cuff tear. 2+ pulses, warm, well-perfused, no edema. NEUROLOGICAL: 4/5 strength with knee flexion/extension, dorsiflexion on L side. 2+ patellar reflexes BL. Decreased sensation to light touch on anterior longoria dorsal and plantar surface of L leg. no other sensory or motor deficits. Cranial nerves II through XII grossly intact. Normal speech, gait not observed. Laboratory Results - last 24 hr CBC, BMP 08/05/17 06:30 08/05/17 06:30 08/04/17 16:30 08/04/17 16:30 08/04/17 08/04/17 08/04/17 16:30 16:30 16:40 WBC 7.5 RBC 4.50 Hgb 13.4 Hct 40.2 MCV 89.5 MCH 29.9 MCHC 33.4 RDW 15.2 Plt Count 215 MPV 9.1 Neutrophils % 52.6 Lymphocytes % 37.0 Monocytes % 8.3 Eosinophils % 1.6 Basophils % 0.5 Sodium 139 Potassium 4.0 Chloride 105 Carbon Dioxide 29 Anion Gap 5 L BUN 8 Creatinine 0.6 Creat Clearance w eGFR > 60 Random Glucose 74 Lactic Acid Calcium 9.2 Total Bilirubin 0.1 L D AST 18 ALT 19 Alkaline Phosphatase 93 Total Protein 8.1 Albumin 4.1 Lipase 78 Urine Color Yellow Urine Appearance Clear Urine pH 7.0 D Ur Specific [place] 1.016 Urine Protein Negative Urine Glucose (UA) Negative Urine Ketones Negative Urine Blood Negative Urine Nitrite Negative Urine Bilirubin Negative Urine Urobilinogen Negative Ur Leukocyte Esterase Trace Urine WBC (Auto) 1 Urine RBC (Auto) 2 Ur Epithelial Cells Rare Urine Mucus Rare Urine HCG, Qual Negative 08/04/17 16:44 WBC RBC Hgb Hct MCV MCH MCHC RDW Plt Count MPV Neutrophils % Lymphocytes % Monocytes % Eosinophils % Basophils % Sodium Potassium Chloride Carbon Dioxide Anion Gap BUN Creatinine Creat Clearance w eGFR Random Glucose Lactic Acid 0.9 Calcium Total Bilirubin AST ALT Alkaline Phosphatase Total Protein Albumin Lipase Urine Color Urine Appearance Urine pH Ur Specific [place] Urine Protein Urine Glucose (UA) Urine Ketones Urine Blood Urine Nitrite Urine Bilirubin Urine Urobilinogen Ur Leukocyte Esterase Urine WBC (Auto) Urine RBC (Auto) Ur Epithelial Cells Urine Mucus Urine HCG, Qual Active Medications Generic Name Dose Route Start Last Admin Trade Name Freq PRN Reason Stop Dose Admin Sodium Chloride 1,000 mls @ 83 mls/hr 08/04/17 20:45 08/04/17 22:42 Normal Saline - IV 83 mls/hr ASDIR MELQUIADES Administration Metronidazole 250 mg in 50 mls @ 50 mls/hr 08/05/17 02:00 08/05/17 01:40 Flagyl 250mg Premixed Ivpb - IVPB 50 mls/hr Q8H-IV MELQUIADES Administration Ketorolac Tromethamine 15 mg 08/04/17 20:31 08/05/17 05:02 Toradol Injection - IVPUSH 08/09/17 20:30 15 mg Q6H PRN Administration PAIN LEVEL 6-10 Ondansetron HCl 4 mg 08/05/17 04:52 08/05/17 04:59 Zofran Injection IVPUSH 4 mg Q6H PRN Administration NAUSEA Urine cultures pending Ab/pelvic CT 08/05 - IMPRESSION: Essentially normal CT scan of the abdomen and pelvis with no evidence of acute pathology. ASSESSMENT/PLAN: 52 yo F with a PMHx of hypothyroidism, nephrolithiasis, asthma, presented to the ED for abdominal pain. Pt recently treated with levaquin/flagyl for suspected diverticulitis at [facility]. Repeat abdominal CT today with no evidence of active infection. Will c/w bowel rest and f/u stool studies. Possible discharge tomorrow if improves. #Diarrhea - likely osmotic/inflammatory; IBD vs. poor diet; CT negative for inflammatory/infectious process - f/u stool WBC, gram stain, O&P - f/u c diff studies - FOBT - GI consulted - Dr. Frances - IV flagyl 500mg IV q8h - Cont bentyl BID - IV toradol - IVFs - zofran IV for nausea #L groin pain - likely secondary to tubal ligation; pain in L groin/anterior thigh; possible compression of obturator canal - Monitor - f/u as outpt with PCP - Weight loss #Scant Hematochezia - Prior colonoscopy 5 years ago notable for internal hemorrhoids; possibly diverticular bleed as well -trend CBC - Repeat colonoscopy as outpt - f/u FOBT - vitals q4h - monitor for further episodes of hematochezia #L LE weakness/numbness - prior MRI with confirm nerve compression; Neuro exam consistent with radiculopathy - f/u as outpt with neurosurgery if continues to worsen - PT #Hypothyroidism -cont w/ home meds #FEN -NS 83cc -Daily Lytes -c/w NPO #PPX -SCDs Plan discussed with attending, Dr. May Ballesteros, PGY1 Visit type - Emergency Visit Emergency Visit: Yes ED Registration Date: 08/05/17 Care time: The patient presented to the Emergency Department on the above date and was hospitalized for further evaluation of their emergent condition. - New Patient This patient is new to me today: Yes Date on this admission: 08/05/17 - Critical Care Critical Care patient: No - Discharge Referral Referred to [facility] Med P.C.: No
[2017-08-05 08:26] LABS: BASO % 0.5 % (0-2.0); EOS % 3.2 % (0-4.5); HEMATOCRIT 34.7 % (32.4-45.2); HEMOGLOBIN 11.5 GM/dL (10.7-15.3); MCH 29.7 pg (25.7-33.7); MCHC 33.2 g/dl (32.0-36.0); MEAN CELL VOLUME 89.4 fl (80-96); MEAN PLT VOLUME 8.4 fl (7.5-11.1); MONO % 8.4 % (3.8-10.2); NEUT % 40.9 % (42.8-82.8); PLATELET COUNT 178 K/MM3 (134-434); RBC 3.88 M/mm3 (3.60-5.2); RDW 15.5 % (11.6-15.6)
[2017-08-05 08:44] LABS: ALBUMIN 3.1 g/dl (3.4-5.0); ANION GAP 5 (8-16); BLOOD UREA NITROGEN 4 mg/dL (7-18); CALCIUM 7.9 mg/dL (8.5-10.1); CHLORIDE 112 mmol/L (98-107); CO2 24 mmol/L (21-32); GLUCOSE,RANDOM 81 mg/dL (74-106); MAGNESIUM 1.8 mg/dL (1.8-2.4); PHOSPHOROUS 2.8 mg/dL (2.5-4.9); POTASSIUM 3.8 mmol/L (3.5-5.1); SGOT/AST 13 U/L (15-37); SODIUM 141 mmol/L (136-145)
[2017-08-05 08:45] LABS: ALK PHOS 73 U/L (45-117); BILIRUBIN,TOTAL 0.2 mg/dL (0.2-1.0); CREATININE 0.5 mg/dL (0.55-1.02); SGPT/ALT 15 U/L (12-78); TOT PROT 6.1 g/dl (6.4-8.2)
[2017-08-05] MEDS ORDERED: CEFTRIAXONE 1 GM in DEXTROSE 5%-WATER - 50 ML IVPB SCH (10:00)
[2017-08-05] MEDS ORDERED: cefTRIAXone SODIUM 1 GM VIAL ONE (10:19)
[2017-08-05] MEDS ORDERED: DEXTROSE 5%-WATER - 50 ML IVPB ONE (10:19)
--- NOTE | 2017-08-05 11:23 | EKG ---
Test Reason : Blood Pressure : / mmHG Vent. Rate : 061 BPM Atrial Rate : 061 BPM P-R Int : 176 ms QRS Dur : 096 ms QT Int : 406 ms P-R-T Axes : 031 -27 023 degrees QTc Int : 408 ms POOR DATA QUALITY, INTERPRETATION MAY BE ADVERSELY AFFECTED NORMAL SINUS RHYTHM WITH SINUS ARRHYTHMIA INCOMPLETE RIGHT BUNDLE BRANCH BLOCK NONSPECIFIC T WAVE ABNORMALITY ABNORMAL ECG WHEN COMPARED WITH ECG OF 12-MAR-2017 17:31, NO SIGNIFICANT CHANGE WAS FOUND Confirmed by CARLOS EDUARDO VASQUEZ MD ([id number]) on 08/05/2017 11:22:59 AM Referred By: Confirmed By:CARLOS EDUARDO VASQUEZ MD
--- NOTE | 2017-08-05 12:14 | PN ---
Teaching Attending Note Name of Resident: Edenilson Ballesteros ATTENDING PHYSICIAN STATEMENT I saw and evaluated the patient. I reviewed the resident's note and discussed the case with the resident. I agree with the resident's findings and plan as documented. SUBJECTIVE:c/o L groin pain. states pain radiates down her L leg causing numbness and tingling. has been having intermittent diarrhea with BRBPR and constipation. states when having constipation she strains a lot and then drinks a lot of maalox and eats prunes then has diarrhea for several days. has been to 4 different hospitals to determine whats causing her pain and was told she had a pinched nerve in her back and one in her groin after having tubal ligation. however she thinks there must be more going on. denies CP, SOB, fever, chills OBJECTIVE: Last Vital Signs Temp Pulse Resp BP Pulse Ox 98.6 F 63 20 104/60 97 08/05/17 06:31 08/05/17 06:31 08/05/17 06:31 08/05/17 06:31 08/04/17 15:36 General NAD CV S1 S2 RRR no murmur/rub/gallop Lungs CTA B/L no wheezing/rales/rhonchi Abdomen soft NT/ND no rebound or guarding normoactive BS. + point tenderness L groin Extremities decreased sensation on LLE L2/L3 distribution, negative SLR ASSESSMENT AND PLAN: 52yo F wtih PMH hypothyroid, ashtma, cholelithasis and tubal ligation with lysis of adhesions presented to the ER wtih LLQ pain with vomiting adn diarrhea 1. LLQ pain- appears to be more groin pain. with point tenderness in the area she was notified she was told she had a pinched nerve from her tubal ligation. ( injury from stirrups?) pt has had multiple recent CT and MRI to evaluate and reporting it as negative. CT scan here not showing anything over the area of where pain is located 2. Diarrhea with hematochezia- now resolved. IBD flare vs poor diet leading to constipation/diarrhea. noted to have internal hemorrhoids on recent colonoscopy. advance to liquid diet. advised dietary changes and using stool softeners to ensure daily BM. GI consulted. may benefit from repeat colonoscopy as outpatient. cont bentyl 3. LLE numbness and tingling- informed from MRI of the spine she has a pinched nerve. advised PT and follow up with neurosurgery as outpatient if does not improve 4. Hypothyroid- cont LT4 5. asthma- no signs of acute exacerbation 6. DVT ppx- EAM
[2017-08-05] MEDS: SODIUM CHLORIDE 1,000 ML IV SCH (21:50)
[2017-08-05] MEDS: DICYCLOMINE HCL 10 MG CAPSULE PO SCH (21:51)
[2017-08-06] MEDS ORDERED: ALBUTEROL SO4 2.5/IPRATROPIUM 0.5 INH SOL 3 ML VIAL.NEB. NEB PRN (01:36)
[2017-08-06] MEDS: ONDANSETRON 4 MG/2 ML VIAL IVPUSH PRN ×2 (06:16→08:17)
--- NOTE | 2017-08-06 06:28 | PN ---
Physical Exam: SUBJECTIVE: Patient seen and examined - No pain meds required, however pt with asthma attack overnight; received duonebs with good response; OOB to chair; VSS, afebrile - Pt states she slept poorly, felt SOB with cough and dry heaves overnight; Endorsing severe nausea in AM, however intermittently asymptomatic on exam; States pain in lower back, L flank and L inguinal fold worse this AM; Endorses chills overnight; no further episodes of diarrhea OBJECTIVE: Vital Signs Intake & Output 08/03/17 08/04/17 08/05/17 08/06/17 23:59 23:59 23:59 23:59 Intake Total 450 100 Balance 450 100 Weight 69.882 kg Period Temp Pulse Resp BP Sys/Garcia Pulse Ox Last 24 Hr 97.8 F-98.7 F 60-68 19-20 104-126/60-80 GENERAL: Middle-aged woman, appears distressed HEAD: NCAT EYES: PERRL, extraocular movements intact, sclera anicteric, conjunctiva clear. No ptosis. ENT: Ears normal, nares patent, oropharynx clear without exudates, moist mucous membranes. NECK: Trachea midline, full range of motion, supple. LUNGS: Breath sounds equal, clear to auscultation bilaterally, no wheezes, no crackles, no accessory muscle use. HEART: Regular rate and rhythm, S1, S2 without murmur, rub or gallop. ABDOMEN: TTP in LLQ and inguinal canal. Negative green's. No rebound tenderness. Normoactive bowel sounds. No hepatomegaly. EXTREMITIES: Still w/ limited R shoulder abduction secondary to rotator cuff tear. 2+ pulses, warm, well-perfused, no edema. NEUROLOGICAL: 4+/5 strength with knee flexion/extension, dorsiflexion/ plantarflexion on L side, possibly limited due to pain/numbness. 2+ patellar reflexes BL. Decreased sensation to light touch on L anterior and medial thigh and medial knee, ana maria/medial longoria. no other sensory or motor deficits. Cranial nerves II through XII grossly intact. Normal speech, gait not observed. Laboratory Results - last 24 hr CBC, BMP 08/05/17 06:30 08/05/17 06:30 08/05/17 08/05/17 06:30 06:30 WBC 6.0 RBC 3.88 Hgb 11.5 D Hct 34.7 MCV 89.4 MCH 29.7 MCHC 33.2 RDW 15.5 Plt Count 178 MPV 8.4 Neutrophils % 40.9 L D Lymphocytes % 47.0 H D Monocytes % 8.4 Eosinophils % 3.2 D Basophils % 0.5 Sodium 141 Potassium 3.8 Chloride 112 H Carbon Dioxide 24 Anion Gap 5 L BUN 4 L Creatinine 0.5 L Creat Clearance w eGFR > 60 Random Glucose 81 Calcium 7.9 L Phosphorus 2.8 Magnesium 1.8 Total Bilirubin 0.2 D AST 13 L ALT 15 Alkaline Phosphatase 73 Total Protein 6.1 L Albumin 3.1 L Active Medications Generic Name Dose Route Start Last Admin Trade Name Freq PRN Reason Stop Dose Admin Albuterol/Ipratropium 1 amp 08/06/17 01:36 08/06/17 01:44 Duoneb - NEB 1 amp Q4H PRN Administration SHORTNESS OF BREATH Budesonide/Formoterol Fumarate 2 puff 08/06/17 10:00 Symbicort 80/4.5mcg - IH BID MELQUIADES Dicyclomine HCl 10 mg 08/05/17 22:00 08/05/17 21:51 Bentyl - PO 10 mg BID MELQUIADES Administration Sodium Chloride 1,000 mls @ 83 mls/hr 08/04/17 20:45 08/05/17 21:50 Normal Saline - IV 83 mls/hr ASDIR MELQUIADES Administration Metronidazole 500 mg in 100 mls @ 100 mls/hr 08/05/17 10:00 08/06/17 01:39 Flagyl 500mg Premixed Ivpb - IVPB 100 mls/hr Q8H-IV MELQUIADES Administration Ketorolac Tromethamine 15 mg 08/04/17 20:31 08/05/17 05:02 Toradol Injection - IVPUSH 08/09/17 20:30 15 mg Q6H PRN Administration PAIN LEVEL 6-10 Levothyroxine Sodium 50 mcg 08/06/17 07:00 08/06/17 06:13 Synthroid - PO 50 mcg DAILY@0700 MELQUIADES Administration Ondansetron HCl 4 mg 08/05/17 04:52 08/06/17 06:16 Zofran Injection IVPUSH 4 mg Q6H PRN Administration NAUSEA Microbiology 08/05/17 09:36 Stool Gram Stain - Final 08/05/17 09:36 Stool Salmonella/Shigella Culture - Preliminary NO ENTERIC PATHOGENS, 24 HOURS, ON PRIMARY PLATES 08/05/17 09:36 Stool Yersinia Culture - Preliminary NO ENTERIC PATHOGENS, 24 HOURS, ON PRIMARY PLATES 08/05/17 09:36 Stool Vibrio Culture - Final NO GROWTH OF VIBRIO SPECIES OBTAINED 08/05/17 09:36 Stool Escherichia coli 0157 Culture - Final NO GROWTH OF E COLI 0157 OBTAINED 08/04/17 22:31 Urine - Urine Clean Catch Urine Culture - Final NO GROWTH OBTAINED Ab/pelvic CT 08/05 - IMPRESSION: Essentially normal CT scan of the abdomen and pelvis with no evidence of acute pathology. ASSESSMENT/PLAN: 52 yo F with a PMHx of hypothyroidism, nephrolithiasis, asthma, presented to the ED for abdominal pain. Pt recently treated with levaquin/flagyl for suspected diverticulitis at [facility]. Pt continues to complain of nausea, lower back and L groin pain. All studies negative to date. #Diarrhea - no episodes overnight; likely osmotic/inflammatory; IBD vs. poor diet; CT negative for inflammatory/infectious process - f/u stool WBC, gram stain, O&P - bacterial gastroenteritis panel, gram stain negative - f/u c diff studies - FOBT - GI consulted - Dr. Frances - IV flagyl 500mg IV q8h - Cont bentyl BID - IV toradol - IVFs - zofran IV for nausea #L groin pain - likely secondary to tubal ligation; pain in L groin/anterior thigh; possible compression of obturator canal and/or compression of spinal nerve - Monitor - f/u as outpt with PCP - Weight loss #Scant Hematochezia - Prior colonoscopy 5 years ago notable for internal hemorrhoids; possibly diverticular bleed as well; no further episodes overnight -trend CBC - Repeat colonoscopy as outpt - f/u FOBT - vitals q4h - monitor for further episodes of hematochezia #L LE weakness/numbness - prior MRI with confirm nerve compression; Neuro exam consistent with radiculopathy - f/u as outpt with neurosurgery if continues to worsen - PT #Hypothyroidism -cont w/ home meds #FEN -NS 83cc -Daily Lytes -c/w NPO; advance diet as tolerated in PM #PPX -SCDs Plan discussed with attending, Dr. May Ballesteros, PGY1
[2017-08-06] MEDS ORDERED: LEVOTHYROXINE NA 50 MCG TABLET (FP) PO SCH (07:00)
[2017-08-06 08:55] LABS: BASO % 0.7 % (0-2.0); EOS % 2.3 % (0-4.5); HEMATOCRIT 35.2 % (32.4-45.2); HEMOGLOBIN 11.7 GM/dL (10.7-15.3); LYMPH % 36.6 % (8-40); MCH 29.5 pg (25.7-33.7); MCHC 33.2 g/dl (32.0-36.0); MEAN CELL VOLUME 88.8 fl (80-96); MEAN PLT VOLUME 8.8 fl (7.5-11.1); MONO % 8.7 % (3.8-10.2); NEUT % 51.7 % (42.8-82.8); PLATELET COUNT 192 K/MM3 (134-434); RBC 3.96 M/mm3 (3.60-5.2); RDW 15.4 % (11.6-15.6); WHITE BLOOD COUNT 5.7 K/mm3 (4.0-10.0)
[2017-08-06 09:23] LABS: ANION GAP 8 (8-16); BLOOD UREA NITROGEN 6 mg/dL (7-18); CALCIUM 8.3 mg/dL (8.5-10.1); CHLORIDE 111 mmol/L (98-107); CO2 23 mmol/L (21-32); CREATININE 0.6 mg/dL (0.55-1.02); GLUCOSE,RANDOM 80 mg/dL (74-106); PHOSPHOROUS 2.7 mg/dL (2.5-4.9); POTASSIUM 3.5 mmol/L (3.5-5.1); SODIUM 142 mmol/L (136-145)
[2017-08-06] MEDS ORDERED: BUDESONIDE/FORMETEROL FUMARATE 80/4.5 mcg INHALER IH SCH (10:00)
[2017-08-06] MEDS ORDERED: PT OWN MED DRAWER 7, Y5N ONE (10:03)
[2017-08-06] MEDS: DICYCLOMINE HCL 10 MG CAPSULE PO SCH (10:07)
[2017-08-06] MEDS: SODIUM CHLORIDE 1,000 ML IV SCH (10:08)
--- NOTE | 2017-08-06 11:11 | PN ---
Teaching Attending Note Name of Resident: Edenilson Ballesteros ATTENDING PHYSICIAN STATEMENT I saw and evaluated the patient. I reviewed the resident's note and discussed the case with the resident. I agree with the resident's findings and plan as documented. SUBJECTIVE:continues to have point tenderness in her groin. denies Cp, SOB, fever, chills, N/V/C/D OBJECTIVE: Last Vital Signs Temp Pulse Resp BP Pulse Ox 98.7 F 68 19 126/74 97 08/06/17 05:53 08/06/17 05:53 08/06/17 05:53 08/06/17 05:53 08/04/17 15:36 General NAD Abdomen soft NT/ND no rebound or guarding normoactive BS. + point tenderness L groin, +nodularity in the area soft and rubbery. does not reduce. no erythema or drainage. back no bone point tenderness along the spine ASSESSMENT AND PLAN: 52yo F wtih PMH hypothyroid, ashtma, cholelithasis and tubal ligation with lysis of adhesions presented to the ER wtih LLQ pain with vomiting and diarrhea 1. LLQ pain- appears to be more groin pain. with point tenderness possible lipoma in this area? will give referral to surgeon for possible excision. explained that it may be causing pain and can have excised but is possibility of growing back. 2. Diarrhea with hematochezia-had episode of vomiting last night and was made NPO. now requesting to eat regular food. does not want liquids because she does not like it. spoke with Dr Frances who stated she was treated for diverticulitis recently and may be residual from that. to give flagyl for additional week. cont bentyl 3. LLE numbness and tingling- informed from MRI of the spine she has a pinched nerve. ambulated with PT with RW. will give script on discharge 4. Hypothyroid- cont LT4 5. asthma- no signs of acute exacerbation 6. DVT ppx- EAM 7. d/c home if tolerating diet with VNS for home PT
[2017-08-06] MEDS ORDERED: metroNIDAZOLE 250 MG TABLET PO SCH (14:00)
[2017-08-06 14:03] VITALS: BP 115/86; PULSE 78; TEMP 98.6
--- NOTE | 2017-08-06 15:39 | DS ---
Physical Exam: SUBJECTIVE: Patient seen and examined - No pain meds required, however pt with asthma attack overnight; received duonebs with good response; OOB to chair; VSS, afebrile - Pt states she slept poorly, felt SOB with cough and dry heaves overnight; Endorsing severe nausea in AM, however intermittently asymptomatic on exam; States pain in lower back, L flank and L inguinal fold worse this AM; Endorses chills overnight; no further episodes of diarrhea PM: - Pt endorsed frustration that she is being discharged today, stating that she feels "something is still wrong with me". Pt counseled at length that her infectious work-up has been negative up until this point, and imaging of her abdomen and pelvis were negative for any suspected pathology per radiologist read. Pt informed that her presenting symptoms are likely more neuropathic in nature and may be secondary to compression of spinal nerve at level of the vertabrae or at the inguinal canal, as pt reports pain in L inguinal canal in addition to numbness in the anteromedial thigh, medial knee and shank. Pt states she will go to "back to [place]" and "if the find something, this hospital is gonna be in trouble". Pt counseled that she has been provided a referral for a general surgeon for evaluation of suspected lipoma in L inguinal canal, which may have been contributing to radicular symptoms. Pt also informed she will be placed on flagyl for 7 day course to cover for possible infectious pathology, although unlikely at this point. Explained to pt that hospital stay is not benign and includes risks of hospital acquired infections and other iatrogenic risks and that prolonged admission must be medically necessary when faced with these risks. Pt instructed to call hospital if she requires any additional services to aid in her outpatient care. Pt instructed to f/u with Dr. Frances within one week for further management of diarrhea, if still persistent. - Of note, Pt reports diarrhea after lunch, however unwitnessed by staff. Pt also reported to be joking with physical therapist and in good spirits, however appears tearful and distress when medical team is present. OBJECTIVE: Vital Signs Intake & Output 08/03/17 08/04/17 08/05/17 08/06/17 23:59 23:59 23:59 23:59 Intake Total 450 1350 Balance 450 1350 Weight 69.882 kg Period Temp Pulse Resp BP Sys/Garcia Pulse Ox Last 24 Hr 98.6 F-98.7 F 60-78 19-20 115-126/74-86 PHYSICAL EXAM GENERAL: Middle-aged woman, appears distressed HEAD: NCAT EYES: PERRL, extraocular movements intact, sclera anicteric, conjunctiva clear. No ptosis. ENT: Ears normal, nares patent, oropharynx clear without exudates, moist mucous membranes. NECK: Trachea midline, full range of motion, supple. LUNGS: Breath sounds equal, clear to auscultation bilaterally, no wheezes, no crackles, no accessory muscle use. HEART: Regular rate and rhythm, S1, S2 without murmur, rub or gallop. ABDOMEN: TTP in LLQ and inguinal canal. Negative green's. No rebound tenderness. Normoactive bowel sounds. No hepatomegaly. Small EXTREMITIES: Still w/ limited R shoulder abduction secondary to rotator cuff tear. 2+ pulses, warm, well-perfused, no edema. NEUROLOGICAL: 4+/5 strength with knee flexion/extension, dorsiflexion/ plantarflexion on L side, possibly limited due to pain/numbness. 2+ patellar reflexes BL. Decreased sensation to light touch on L anterior and medial thigh and medial knee, ana maria/medial longoria. no other sensory or motor deficits. Cranial nerves II through XII grossly intact. Normal speech, gait not observed. LABS Laboratory Results - last 24 hr CBC, BMP 08/06/17 07:45 08/06/17 07:30 08/06/17 08/06/17 07:30 07:45 WBC 5.7 RBC 3.96 Hgb 11.7 Hct 35.2 MCV 88.8 MCH 29.5 MCHC 33.2 RDW 15.4 Plt Count 192 MPV 8.8 Neutrophils % 51.7 D Lymphocytes % 36.6 D Monocytes % 8.7 Eosinophils % 2.3 Basophils % 0.7 Sodium 142 Potassium 3.5 Chloride 111 H Carbon Dioxide 23 Anion Gap 8 BUN 6 L Creatinine 0.6 Random Glucose 80 Calcium 8.3 L Phosphorus 2.7 Magnesium 2.0 Microbiology 08/05/17 09:36 Stool Gram Stain - Final 08/05/17 09:36 Stool Salmonella/Shigella Culture - Preliminary NO ENTERIC PATHOGENS, 24 HOURS, ON PRIMARY PLATES 08/05/17 09:36 Stool Yersinia Culture - Preliminary NO ENTERIC PATHOGENS, 24 HOURS, ON PRIMARY PLATES 08/05/17 09:36 Stool Vibrio Culture - Final NO GROWTH OF VIBRIO SPECIES OBTAINED 08/05/17 09:36 Stool Escherichia coli 0157 Culture - Final NO GROWTH OF E COLI 0157 OBTAINED 08/04/17 22:31 Urine - Urine Clean Catch Urine Culture - Final NO GROWTH OBTAINED Ab/pelvic CT 08/05 - IMPRESSION: Essentially normal CT scan of the abdomen and pelvis with no evidence of acute pathology. HOSPITAL COURSE: Prehospital course: 52 yo F with a PMHx of hypothyroidism, nephrolithiasis, asthma, presented to the ED because of 10/, constant, sharp, LLQ abdominal pain over the last year which radiates to her back. Movement and laying on her back aggravates the pain. She said she has been in and out of hospitals with no answers. She went to the [facility] ER last week and they discharged her with an unknown antibiotic which she says has a few days left. Patient also reported having watery diarrhea over the last 2 weeks with BRBPR. She had been having 3-5 BM a day. She reported she had a poor appetite with a 10 pound weight loss over the last 2 months. She also endorsed vomiting everything that she eats, with 4 episodes of vomiting in the past 24 hours. Last colonoscopy was 5 years ago and she did not know results. She denied fevers, dysuria, Sob, chest pain, dizziness, and cough. ER course was notable for: (1) Flagyl 250mg IV x1 (2) IV fluids Hospital course: On presentation, VSS, no lab abnormalities. UA negative. CT ab/pelvis with no evidence of acute pathology, however notable for L tubal cyst. Urine cultures, stool studies, O+P, gram stain, WBC sent. GI consulted. Pt started on Flagyl TID. Pt complaining of L groin pain, L leg weakness numbness; likely radiculopathy secondary to compression of spinal nerve root or peripheral nerve at level of obturator/femoral canal due to soft tisue mass/pannus in the inguinal region. Pt initially kept NPO, no further bouts of dirrhea. However, after restarting diet, pt complaining of diarrhea, however not witnessed by nursing staff. Infectious work-up unrevealing during admission. Pt counseled that L groin pain and L leg symptoms likely secondary to compressed nerve, provided referrals for general surgeon and advised to f/u with PCP for possible referral to neurosurgeon. Pt discharged on one week of oral flagyl and advised to f/u with PCP and GI for further treatment. All labs and work-up negative for infectious pathology on discharge. Date of Admission:08/05/17 Date of Discharge: 08/06/17 Pt is medically stable and cleared for discharge with outpt f/u with Dr. Frances and has been provided with referral for f/u with Dr. Oh for removal of suspected inguinal lipoma. Minutes to complete discharge: 35 Discharge Summary Reason For Visit: ABDOMINAL PAIN Current Active Problems Abdominal pain (Acute) Condition: Stable - Instructions Diet, Activity, Other Instructions: During your stay at [facility], you were treated for suspected diverticulitis, an infection/inflammation of your small pockets within the wall of your colon. All tests for infection have been negative. You are being discharged on oral antibiotics for one week to cover for a possible infection. Medications: The following medications were started during your stay at [facility]. Please take them as directed below: Flagyl 250mg, take one pill every eight hours by mouth for the next seven days ( 08/07-08/13). After this, you have completed the remainder of your antibiotic course. Please continue to take all other medications as previously prescribed. If you continue to experience pain in your back or leg, you may take Tylenol by mouth every four hours until the pain subsides Follow-ups: Please follow-up with your primary care physician in one week for further management of your medications. Please call their office to schedule an appointment. Please follow-up with our legal entity controller, Dr. Frances, in one week for further management of your gastroenterology care. Please call his office to schedule an appointment within one week. You are being provided a referral for a general surgeon for a suspected lipoma, a fatty mass, in your groin which is likely contributing to your left leg symptoms by compressing the nerves passing through this region. You are being referred to Dr. Oh. His contact information has been provided in this packet. Please call his office within one week to schedule a visit. You have been previously diagnosed with a compressed nerve in your left spine on MRI at a prior hospitalization. This is likely contributing to your lower back pain. You should start with physical therapy to see if that alleviates your pain. If it does not then should discuss with your primary care provider to determine if your require a referral to a neurosurgeon. Diet/exercise: You are being discharged with a rolling walker to aid in ambulation at home. Please return to the hospital if you experience any of the following symptoms: - Worsening, persistent diarrhea for >4 days - Prolonged fevers/chills - Significant amounts of jared blood in your stools - Any new or concerning symptoms Referrals: Toño Oh MD [Staff Physician] - 1 Week Scott Frances MD [Staff Physician] - 1 Week Disposition: VNS/HOME HEALTH CARE - Home Medications Comprehensive Discharge Medication List: Ambulatory Orders Levothyroxine [Synthroid -] 50 mcg PO DAILY 08/04/17 Dicyclomine HCl [Bentyl -] 10 mg PO BID 08/05/17 Fluticasone/Salmeterol [Advair 250-50 Diskus] 1 each IH Q12H 08/05/17 Lipase/Protease/Amylase [Creon Dr 36,000 Units Capsule] 1 each PO TID 08/05/17 Ondansetron HCl [Zofran] 4 mg PO Q8H PRN 08/05/17 Walker [Ultra-Light Rollator] 1 each MC 1XPACU #1 each 08/06/17 metroNIDAZOLE [Flagyl -] 250 mg PO TID #21 tablet 08/06/17 This patient is new to me today: No Emergency Visit: Yes ED Registration Date: 08/05/17 Care time: The patient presented to the Emergency Department on the above date and was hospitalized for further evaluation of their emergent condition. Critical Care patient: No - Discharge Referral Referred to [facility] No
== END 2017-08-06 18:07 | disposition home health service (06) ==
LOC: JER 15:22 → INTOOBSV 20:56 → OBSVTOIN 20:56 → UNDOADMOB 20:56 → JERBED 20:56 → J6S 23:56 → JERBED 08-05 07:23
PROVIDERS: ADMIT Internal Medicine; ATTEND Internal Medicine
PROC: 3E03329 Introduction of Other Anti-infective into Peripheral Vein, Percutaneous Approach (ICD-10-PCS; principal; 2017-08-05)
PROC: 3E0337Z Introduction of Electrolytic and Water Balance Substance into Peripheral Vein, Percutaneous Approach (ICD-10-PCS; 2017-08-05)
PROC: 3E033GC Introduction of Other Therapeutic Substance into Peripheral Vein, Percutaneous Approach (ICD-10-PCS; 2017-08-05)
PROC: 3E0333Z Introduction of Anti-inflammatory into Peripheral Vein, Percutaneous Approach (ICD-10-PCS; 2017-08-05)
PROC: 3E0F7GC Introduction of Other Therapeutic Substance into Respiratory Tract, Via Natural or Artificial Opening (ICD-10-PCS; 2017-08-05)
DX: R10.32 Left lower quadrant pain (principal); E03.9 Hypothyroidism, unspecified; E78.5 Hyperlipidemia, unspecified; J45.909 Unspecified asthma, uncomplicated; I34.1 Nonrheumatic mitral (valve) prolapse; R11.2 Nausea with vomiting, unspecified; R63.4 Abnormal weight loss; R19.7 Diarrhea, unspecified; K92.1 Melena; R20.0 Anesthesia of skin; M62.81 Muscle weakness (generalized); Z68.28 Body mass index [BMI] 28.0-28.9, adult; Z88.6 Allergy status to analgesic agent; Z87.442 Personal history of urinary calculi; Z87.891 Personal history of nicotine dependence
CPT/HCPCS: 36415; 74177-TC; 80048; 80053; 81003; 81015; 83605; 83690; 83735; 84100; 84703; 85025; 87045; 87046; 87086; 87177; 87205; 87209; 93005; 93010; 94640; 96365; 96375; 97116-GP; 97161-GP; 99282-25; G0378; J7030

== ENCOUNTER 2018-03-21 17:06 | Emergency (ER) | payer OTHER ==
--- NOTE | 2018-03-21 17:35 | PDOC ---
Rapid Medical Evaluation Chief Complaint: Chronic pain Time Seen by Provider: 03/21/18 17:30 Medical Evaluation: Allergies Allergy/AdvReac Type Severity Reaction Status Date / Time meperidine HCl [From Demerol] Allergy Verified 03/20/17 16:18 morphine Allergy Verified 03/20/17 16:18 03/21/18 17:32 I have performed a brief in-person evaluation of this patient. The patient presents with a chief complaint of:18 years of chronic shoulder pain , but with worsening pain to neck today Pertinent physical exam findings: tense tight muscular to neck and right shoulder - has not seen pain management - new to her. Has not taken medications - " i dont like to take medications" I have ordered the following: nothing The patient will proceed to the ED for further evaluation. Discharge Disposition - Diagnosis Chronic pain Qualifiers: Chronic pain type: chronic pain syndrome Qualified Code(s): G89.4 - Chronic pain syndrome - Referrals Referrals: Elizabeth Donaldson MD [Primary Care Provider] - - Patient Instructions - Post Discharge Activity
[2018-03-21 17:40] VITALS: BP 140/82; PULSE 82; TEMP 98.2; BMI 27.6
[2018-03-21] MEDS ORDERED: KETOROLAC TROMETHAMINE 60 MG/2 ML VIAL IM ONE (18:42)
[2018-03-21] MEDS ORDERED: KETOROLAC TROMETHAMINE 60 MG/2 ML VIAL ONE (18:43)
--- NOTE | 2018-03-21 18:51 | PDOC ---
History of Present Illness - General Chief Complaint: Chronic pain Stated Complaint: NECK PAIN Time Seen by Provider: 03/21/18 17:30 History Source: Patient Exam Limitations: Clinical Condition - History of Present Illness Initial Comments: 03/21/18 18:43 Patient with history of shoulder injury 18 years ago requiring rotator cuff repair present with complain of R shoulder pain for a week which has not started to affect right side of neck. pt reported increased pain when she lifts right arm or rotate neck to the left. Patient denies any new injury or trauma. patient report she was told in the past that she will need a right shoulder replacement but never follow-up 03/21/18 19:30 Timing/Duration: 1 week Past History - Past Medical History Allergies/Adverse Reactions: Allergies Allergy/AdvReac Type Severity Reaction Status Date / Time meperidine HCl [From Demerol] Allergy Verified 03/21/18 17:32 morphine Allergy Verified 03/21/18 17:32 Home Medications: Ambulatory Orders Levothyroxine [Synthroid -] 50 mcg PO DAILY 08/04/17 Dicyclomine HCl [Bentyl -] 10 mg PO BID 08/05/17 Fluticasone/Salmeterol [Advair 250-50 Diskus] 1 each IH Q12H 08/05/17 Lipase/Protease/Amylase [Creon Dr 36,000 Units Capsule] 1 each PO TID 08/05/17 Ondansetron HCl [Zofran] 4 mg PO Q8H PRN 08/05/17 Methocarbamol [Robaxin -] 500 mg PO TID #21 tablet 03/21/18 Naproxen 500 mg PO BID PRN #20 tablet 03/21/18 Anemia: No Asthma: Yes Cancer: No Cardiac Disorders: Yes (MVP) CVA: No COPD: No CHF: No DVT: No Dementia: No Diabetes: No Dialysis: No GI Disorders: Yes Disorders: Yes (ENDOMETRIOSIS) HTN: No Hypercholesterolemia: Yes Kidney Stones: Yes Liver Disease: No Psychiatric Problems: No Seizures: No Thyroid Disease: Yes Lung CA: No - Surgical History Abdominal Surgery: Yes (ADHESIONS) Appendectomy: No Cardiac Surgery: No Cholecystectomy: No Lung Surgery: No Neurologic Surgery: (scar tissue) Orthopedic Surgery: No - Immunization History Immunization Up to Date: Yes - Suicide/Smoking/Psychosocial Hx Smoking History: Unknown if ever smoked Have you smoked in the past 12 months: No If you are a former smoker, when did you quit?: 25 yrs ago Hx Alcohol Use: No Drug/Substance Use Hx: No Substance Use Type: None Hx Substance Use Treatment: No Review of Systems - Review of Systems Able to Perform ROS?: Yes Is the patient limited Guyanese proficient: No Constitutional: Yes: Weakness (right shoulder). No: Malaise HEENTM: No: Recent change in vision, Double Vision Respiratory: No: Symptoms reported Cardiac (ROS): No: Symptoms Reported ABD/GI: No: Symptoms Reported Musculoskeletal: Yes: See HPI, Joint Pain (right shoulder), Muscle Pain (right side of neck), Neck Pain (right side of neck), Joint Stiffness (neck). No: Joint Swelling Neurological: Yes: Weakness (right shoulder). No: Numbness, Paresthesia, Tingling All Other Systems: Reviewed and Negative *Physical Exam - Vital Signs Last Vital Signs Temp Pulse Resp BP Pulse Ox 98.2 F 82 18 140/82 99 03/21/18 17:33 03/21/18 17:33 03/21/18 17:33 03/21/18 17:33 03/21/18 17:33 - Physical Exam Comments: 03/21/18 19:28 GENERAL: Well developed, well nourished. Awake and alert. No acute distress. CARDIOVASCULAR: Regular rate and rhythm. No murmurs, rubs, or gallops. PULMONARY: No evidence of respiratory distress. Lungs clear to auscultation bilaterally. No wheezing, rales or rhonchi. ABDOMINAL: Soft. Non-tender. Non-distended. No rebound or guarding. No organomegaly. Normoactive bowel sounds MUSCULOSKELETAL : moderate tenderness to right paracervical muscle of C3-C7. moderate tenderness over AC joint of right shoulder. mild bone prominence over AC joint of right shoulder. patient unable to elevate RUE due to severe pain . SKIN: Warm and dry. Normal capillary refill. No rashes. NEUROLOGICAL: Alert, awake, appropriate. No motor deficits in the lower extremities. Gait is normal without ataxia. PSYCHIATRIC: Cooperative. Good eye contact. Appropriate mood and affect. General Appearance: Yes: Nourished, Appropriately Dressed, Moderate Distress Moderate Sedation - Procedure Monitoring Vital Signs: Procedure Monitoring Vital Signs Temperature 98.2 F 03/21/18 17:33 Pulse Rate 82 12/03/18 17:33 Respiratory Rate 18 03/21/18 17:33 Blood Pressure 140/82 03/21/18 17:33 O2 Sat by Pulse Oximetry (%) 99 03/21/18 17:33 ED Treatment Course - RADIOLOGY Radiology Studies Ordered: Category Date Time Status SHOULDER-RIGHT [RAD] Stat Radiology 03/21/18 18:15 Taken SPINE-CERVICAL [RAD] Stat Radiology 03/21/18 18:15 Taken Medical Decision Making - Medical Decision Making 03/21/18 18:48 Patient with history of shoulder injury 18 years ago requiring rotator cuff repair present with complain of R shoulder pain for a week which has not started to affect right side of neck. exam significant for moderate tenderness to right paracervical muscle of C3-C7. moderate tenderness over right AC joint with prominence on right AC joint. x-rays of cervical spine shows no acute pathology. x-rays of right sholder shows severe arthritis changes to acromio- clavicular joint. no acute fracture seen. Toradol 60mg IM given for pain. patient stable for discharge on NSAIDS and muscle relaxer with orthopedics follow-up *DC/Admit/Observation/Transfer Diagnosis at time of Disposition: Neck muscle spasm, Arthritis, shoulder region Chronic pain Qualifiers: Chronic pain type: chronic pain syndrome Qualified Code(s): G89.4 - Chronic pain syndrome - Discharge Dispostion Disposition: HOME Condition at time of disposition: Stable Decision to Admit order: No - Prescriptions Prescriptions: Methocarbamol [Robaxin -] 500 mg PO TID #21 tablet Naproxen 500 mg PO BID PRN #20 tablet PRN Reason: pain - Referrals Referrals: Elizabeth Donaldson MD [Primary Care Provider] - - Patient Instructions Printed Discharge Instructions: Shoulder Instability, DI for Shoulder Replacement Additional Instructions: take medications as prescribed for pain. apply heat 2-3times/ day for 5-10mins as needed for shoulder pain. follow-up with referred orthopedics as soon as possible for shoulder follow-up - Post Discharge Activity
== END 2018-03-21 18:57 | disposition home or self-care (01) ==
LOC: JERFT 17:06 → JER 17:06 → JERFT 18:57
PROC: 3E0233Z Introduction of Anti-inflammatory into Muscle, Percutaneous Approach (ICD-10-PCS; principal; 2018-03-21)
DX: G89.4 Chronic pain syndrome (principal); M62.838 Other muscle spasm; M19.011 Primary osteoarthritis, right shoulder; I34.1 Nonrheumatic mitral (valve) prolapse; E78.00 Pure hypercholesterolemia, unspecified
CPT/HCPCS: 72050-TC-FY; 73030-TC-RT-FY; 96372; 99281-25

== ENCOUNTER 2018-03-24 08:19 | Observation (INO) | payer OTHER ==
--- NOTE | 2018-03-24 08:41 | PDOC ---
Attending Attestation - HPI HPI: 03/24/18 11:19 The patient is a 53 year old female with a history of R rotator cuff injury s/p repair who presents to the ED for left sided neck pain which radiates down into her left arm with associated tingling down her left fingers. She reports pain is exacerbated with movement of the left upper extremity. She also reports some anterior left chest pain with left arm movement as well. She denies any pain with inspiration. She denies fever, chills, n/v/d. She denies SOB, BAR, palpitations, dizziness. She denies changes in urine or bowel movements. - Medical Decision Making 03/24/18 11:23 Documentation prepared by Sylvie Amador, acting as medical transcription for Elayne Escamilla MD <Sylvie Amador - Last Filed: 03/24/18 11:19> - Resident Resident Name: Donte Phillips - ED Attending Attestation I have performed the following: I have examined & evaluated the patient, The case was reviewed & discussed with the resident, I agree w/resident's findings & plan, Exceptions are as noted - Physicial Exam PE: GENERAL: Awake, alert, and fully oriented. Tearful. In obvious discomfort. HEAD: No signs of trauma EYES: PERRLA, EOMI, sclera anicteric, conjunctiva clear ENT: Auricles normal inspection, hearing grossly normal, nares patent, oropharynx clear without exudates. Moist mucosa NECK: Normal ROM, supple, no lymphadenopathy, JVD, or masses LUNGS: Breath sounds equal, clear to auscultation bilaterally. No wheezes, and no crackles HEART: Regular rate and rhythm, normal S1 and S2, no murmurs, rubs or gallops ABDOMEN: Soft, nontender, normoactive bowel sounds. No guarding, no rebound. No masses EXTREMITIES: Limited ROM L shoulder due to pain. Remainder of extremities with normal range of motion, no edema. No clubbing or cyanosis. No cords, erythema, or tenderness NEUROLOGICAL: Cranial nerves II through XII grossly intact. Normal speech, normal gait. No motor deficits. SKIN: Warm, Dry, normal turgor, no rashes or lesions noted. SPINE: No midline tenderness. - Medical Decision Making CT c-spine obtained, as patient has new symptoms (pain previously on R side), found to have nerve impingement. Will d/w NSx. <Elayne Escamilla - Last Filed: 03/24/18 12:44>
[2018-03-24 09:53] LABS: BASO % 0.6 % (0-2.0); EOS % 1.6 % (0-4.5); HEMATOCRIT 39.3 % (32.4-45.2); HEMOGLOBIN 12.7 GM/dL (10.7-15.3); LYMPH % 30.8 % (8-40); MCH 29.3 pg (25.7-33.7); MCHC 32.3 g/dl (32.0-36.0); MEAN CELL VOLUME 90.7 fl (80-96); MEAN PLT VOLUME 8.2 fl (7.5-11.1); PLATELET COUNT 191 K/MM3 (134-434); RBC 4.34 M/mm3 (3.60-5.2); RDW 14.9 % (11.6-15.6); WHITE BLOOD COUNT 8.9 K/mm3 (4.0-10.0)
[2018-03-24 10:25] LABS: ALBUMIN 3.6 g/dl (3.4-5.0); ALK PHOS 97 U/L (45-117); ANION GAP 6 MMOL/L (8-16); BILIRUBIN,TOTAL 0.3 mg/dL (0.2-1); BLOOD UREA NITROGEN 9 mg/dL (7-18); CHLORIDE 105 mmol/L (98-107); CO2 29 mmol/L (21-32); CREATININE 0.7 mg/dL (0.55-1.3); GLUCOSE,RANDOM 88 mg/dL (74-106); POTASSIUM 4.8 mmol/L (3.5-5.1); SGOT/AST 9 U/L (15-37); SGPT/ALT 13 U/L (13-61); SODIUM 140 mmol/L (136-145); TOT PROT 7.8 g/dl (6.4-8.2)
--- NOTE | 2018-03-24 10:27 | EKG ---
Test Reason : Blood Pressure : / mmHG Vent. Rate : 078 BPM Atrial Rate : 078 BPM P-R Int : 144 ms QRS Dur : 092 ms QT Int : 396 ms P-R-T Axes : 022 -37 016 degrees QTc Int : 451 ms NORMAL SINUS RHYTHM LEFT AXIS DEVIATION INCOMPLETE RIGHT BUNDLE BRANCH BLOCK ABNORMAL ECG WHEN COMPARED WITH ECG OF 04-AUG-2017 18:45, NO SIGNIFICANT CHANGE WAS FOUND Confirmed by CHRISTINA DA SILVA, CARLOS EDUARDO ([id number]) on 03/24/2018 10:26:46 AM Referred By: Confirmed By:CARLOS EDUARDO VASQUEZ MD
[2018-03-24] MEDS ORDERED: KETOROLAC TROMETHAMINE 30 MG/1 ML VIAL IM ONE ×2 (10:31)
[2018-03-24] MEDS ORDERED: traMADol HCL 50 MG TABLET PO ONE (10:31)
[2018-03-24] MEDS ORDERED: traMADol HCL 50 MG TABLET ONE (10:45)
[2018-03-24] MEDS ORDERED: KETOROLAC TROMETHAMINE 60 MG/2 ML VIAL ONE (10:46)
--- NOTE | 2018-03-24 11:12 | PDOC ---
History of Present Illness - General Chief Complaint: Pain Stated Complaint: LT ARM NUMBNESS Time Seen by Provider: 03/24/18 08:28 History Source: Patient - History of Present Illness Initial Comments: 03/24/18 11:06 53f with pmh of R rotator cuff injury s/p surgery presetns to the ED for left sided neck and 10/10 chest pain radiating down her left arm, tingling and numbness down her fingers. Pain is exacerbated upon any movement of her left arm, felt specifically over her left chest wall. She feels that she can't grasp objects as tight or use her hand due to the pain. No pain upon inspiration. Denies fever, chills, n/v/d/ Past History - Past Medical History Allergies/Adverse Reactions: Allergies Allergy/AdvReac Type Severity Reaction Status Date / Time meperidine HCl [From Demerol] Allergy Verified 03/24/18 08:26 morphine Allergy Verified 03/24/18 08:26 Home Medications: Ambulatory Orders Levothyroxine [Synthroid -] 50 mcg PO DAILY 08/04/17 Dicyclomine HCl [Bentyl -] 10 mg PO BID 08/05/17 Fluticasone/Salmeterol [Advair 250-50 Diskus] 1 each IH Q12H 08/05/17 Lipase/Protease/Amylase [Connor Dr 36,000 Units Capsule] 1 each PO TID 08/05/17 Ondansetron HCl [Zofran] 4 mg PO Q8H PRN 08/05/17 Methocarbamol [Robaxin -] 500 mg PO TID #21 tablet 03/21/18 Naproxen 500 mg PO BID PRN #20 tablet 03/21/18 Anemia: No Asthma: Yes Cancer: No Cardiac Disorders: Yes (MVP) CVA: No COPD: No CHF: No DVT: No Dementia: No Diabetes: No Dialysis: No GI Disorders: Yes Disorders: Yes (ENDOMETRIOSIS) HTN: No Hypercholesterolemia: Yes Kidney Stones: Yes Liver Disease: No Psychiatric Problems: No Seizures: No Thyroid Disease: Yes Lung CA: No - Surgical History Abdominal Surgery: Yes (ADHESIONS) Appendectomy: No Cardiac Surgery: No Cholecystectomy: No Lung Surgery: No Neurologic Surgery: (scar tissue) Orthopedic Surgery: No - Immunization History Immunization Up to Date: Yes - Suicide/Smoking/Psychosocial Hx Smoking History: Former smoker Have you smoked in the past 12 months: No If you are a former smoker, when did you quit?: 25 yrs ago Information on smoking cessation initiated: No Hx Alcohol Use: No Drug/Substance Use Hx: No Substance Use Type: None Hx Substance Use Treatment: No Review of Systems - Review of Systems Able to Perform ROS?: Yes Is the patient limited Luxembourgish proficient: No Constitutional: No: Symptoms Reported HEENTM: No: Symptoms Reported Respiratory: No: Symptoms reported Cardiac (ROS): No: Symptoms Reported ABD/GI: No: Symptoms Reported : No: Symptoms Reported Musculoskeletal: Yes: See HPI Neurological: Yes: Numbness, Tingling (over upper left extremity.), Weakness All Other Systems: Reviewed and Negative *Physical Exam - Vital Signs Last Vital Signs Temp Pulse Resp BP Pulse Ox 97.8 F 92 H 18 128/89 100 03/24/18 08:20 03/24/18 08:20 03/24/18 08:20 03/24/18 08:20 03/24/18 08:20 - Physical Exam General Appearance: Yes: Nourished, Appropriately Dressed, Apparent Distress, Moderate Distress, Other (Tearful) HEENT: positive: EOMI, YAQUELIN Respiratory/Chest: positive: Chest Tender (over left side), Lungs Clear, Normal Breath Sounds. negative: Respiratory Distress Cardiovascular: positive: Regular Rhythm, Regular Rate, S1, S2 Musculoskeletal: positive: Other (Decreased range of motion of left arm and wrist from pain) Extremity: positive: Other (New Numbness and tingling over left arm to fingertips.) Integumentary: positive: Normal Color, Dry, Warm Neurologic: positive: Fully Oriented, Alert, Normal Response Moderate Sedation - Procedure Monitoring Vital Signs: Procedure Monitoring Vital Signs Temperature 97.8 F 03/24/18 08:20 Pulse Rate 92 H 03/24/18 08:20 Respiratory Rate 18 03/24/18 08:20 Blood Pressure 128/89 03/24/18 08:20 O2 Sat by Pulse Oximetry (%) 100 03/24/18 08:20 ED Treatment Course - LABORATORY CBC & Chemistry Diagram: 03/24/18 09:39 03/24/18 09:39 - ADDITIONAL ORDERS Additional order review: Laboratory Results 03/24/18 09:39 Sodium 140 Potassium 4.8 Chloride 105 Carbon Dioxide 29 Anion Gap 6 L BUN 9 Creatinine 0.7 Creat Clearance w eGFR > 60 Random Glucose 88 Calcium 9.0 Total Bilirubin 0.3 AST 9 L ALT 13 Alkaline Phosphatase 97 Troponin I < 0.02 Total Protein 7.8 Albumin 3.6 03/24/18 09:39 RBC 4.34 MCV 90.7 MCHC 32.3 RDW 14.9 MPV 8.2 Neutrophils % 60.0 Lymphocytes % 30.8 Monocytes % 7.0 Eosinophils % 1.6 Basophils % 0.6 - RADIOLOGY Radiology Studies Ordered: Category Date Time Status CERVICAL SPINE CT W/O CONTR [CT] Stat CT Scan 03/24/18 10:37 Taken CHEST PA & LAT [RAD] Stat Radiology 03/24/18 08:38 Completed - Medications Given in the ED: ED Medications Discontinued Medications Generic Name Dose Route Start Last Admin Trade Name Freq PRN Reason Stop Dose Admin Ketorolac Tromethamine 30 mg 03/24/18 10:31 03/24/18 10:49 Toradol Injection - IM 03/24/18 10:32 Not Given ONCE ONE Medical Decision Making - Medical Decision Making 03/24/18 11:29 53F with h/o shoulder pain presenting with chest pain. MN vs aortic dissection vs msk pain. All labs, trops, EKG WNL. Will obtain CT cervical neck to r/o radiculopathy. Pain control with tordol and her usual tramadol 03/24/18 11:37 CT cervical neck read: Straightening of the cervical spine. The alignment is satisfactory. No gross fracture or subluxation is seen. No jumped facets are identified. Mild degenerative disc disease and anterior spondylosis at C4-C5 level. Moderate degenerative narrowing of C5-C6 intervertebral disc space bilateral uncovertebral hypertrophy, left more the right moderately narrowing the left foramen and possibly impinging left C5 nerve root. Correlation with MRI would be helpful for further evaluation. Note is made of a low-attenuation nodular density in the left lung apex, posteriorly measuring 4.5 mm for which correlation with a nonemergent CT scan of the chest is needed to rule out other pulmonary nodules Spoke to Dr. Medina, Neurosurgeon, who asked for MRI and admission of the patient. *DC/Admit/Observation/Transfer Diagnosis at time of Disposition: Radiculopathy affecting upper extremity - Discharge Dispostion Decision to Admit order: Yes - Referrals Referrals: Elizabeth Donaldson MD [Primary Care Provider] - - Patient Instructions - Post Discharge Activity
--- NOTE | 2018-03-24 12:26 | PN ---
Progress Note (short form) - Note Progress Note: NEUROSURGERY CONSULT DICTATED Chart reviewed Pt examined History obtained H/o R rotator cuff repair c/o 1 1/2 wk h/o left sided neck pain which radiating to left arm with associated tingling/numbness down her left fingers. She reports pain is exacerbated with movement of the left UE. She also reports some anterior left chest pain. + Subjective L arm weakness. No Lhermitte's sign or B/B dysfunction. PE: AF, VSS HEENT-NC/AT; Neck- L paraspinal muscle spasm; Cor- RR; Lungs- CTA B; Abd- benign ; Ext- no sign of DVT CN- intact; Motor- 5/5 except L B/BR/T/intrinsics 4-, pain limited; Sensation- decreased LT L C6-7-8; DTR- 2+ CT C spine- marked C4-5 and C5-6 DDD, spondylosis; L > R C4-5 and C5-6 foramenal stenosis; loss of lordosis C4-5 and C5-6 DDD with stenosis and L C5, C6, and C7 radiculopathy Recommend: Decadron 4 mg ivp, neurontin 300 mg tid, PT, C spine MRI non-contrast If pain control is adequate and weakness normalizes could be discharged, otherwise would be reasonable to admit for further eval (EMG) and pain management D/w pt and ED team
[2018-03-24] MEDS ORDERED: DEXAMETHASONE SOD PHOSPHATE 4 MG/1 ML VIAL IVPUSH ONE (12:30)
[2018-03-24] MEDS ORDERED: GABAPENTIN 300 MG CAPSULE (FP) PO ONE (12:32)
[2018-03-24] MEDS ORDERED: DEXAMETHASONE SOD PHOSPHATE 4 MG/1 ML VIAL ONE (12:37)
[2018-03-24] MEDS ORDERED: GABAPENTIN 100 MG CAPSULE (FP) ONE (12:38)
--- NOTE | 2018-03-24 12:38 | HP ---
CHIEF COMPLAINT: neck pain PCP: HISTORY OF PRESENT ILLNESS: This is a 53 year old female with a history of right rotator cuff surgery due to cyst, hypothyroid (not on medication), sciatica, who present with a two day history of left neck pain that radiates to left scapula with associated numbness and tingling shooting down left arm and fingers for the past two days. Worse with raising arm up and down. Denies injury, jaw pain, anterior chest pain , abdominal pain, leg swelling. Has history of MVP. Patient states, when she had her rotator cuff surgery, she was told she went into cardiac arrest and her "heart stopped". She does not know if there were chest compressions done on her or if meds were given. ER course was notable for: CT /cervical spine + for degenerative discs disease and anterior spondylosis at C4-C5 level. Possible impinging left C5 nerve root. Recent Travel: no PAST MEDICAL HISTORY: right rotator cuff cyst, MVP; sciatica PAST SURGICAL HISTORY: endometriosos lap; asl interpreter surgery, Social History: Smoking:no Alcohol:no Drugs: no Family History: Allergies meperidine HCl [From Demerol] Allergy (Verified 03/24/18 08:26) morphine Allergy (Verified 03/24/18 08:26) HOME MEDICATIONS: Home Medications Medication Instructions Recorded Levothyroxine [Synthroid -] 50 mcg PO DAILY 08/04/17 Dicyclomine HCl [Bentyl -] 10 mg PO BID 08/05/17 Fluticasone/Salmeterol [Advair 1 each IH Q12H 08/05/17 250-50 Diskus] Lipase/Protease/Amylase [Creon Dr 1 each PO TID 08/05/17 36,000 Units Capsule] Ondansetron HCl [Zofran] 4 mg PO Q8H PRN 08/05/17 Methocarbamol [Robaxin -] 500 mg PO TID #21 tablet 03/21/18 Naproxen 500 mg PO BID PRN #20 tablet 03/21/18 REVIEW OF SYSTEMS CONSTITUTIONAL: Absent: fever, chills, diaphoresis, generalized weakness, malaise, loss of appetite, weight change HEENT: Absent: rhinorrhea, nasal congestion, throat pain, throat swelling, difficulty swallowing, mouth swelling, ear pain, eye pain, visual changes CARDIOVASCULAR: Absent: chest pain, syncope, palpitations, irregular heart rate, lightheadedness , peripheral edema RESPIRATORY: Absent: cough, shortness of breath, dyspnea with exertion, orthopnea, wheezing, stridor, hemoptysis GASTROINTESTINAL: Absent: abdominal pain, abdominal distension, nausea, vomiting, diarrhea, constipation, melena, hematochezia GENITOURINARY: Absent: dysuria, frequency, urgency, hesitancy, hematuria, flank pain, genital pain MUSCULOSKELETAL: Positive: arthralgia, back pain, neck pain Absent: myalgia, joint swelling, SKIN: Absent: rash, itching, pallor HEMATOLOGIC/IMMUNOLOGIC: Absent: easy bleeding, easy bruising, lymphadenopathy, frequent infections ENDOCRINE: Absent: unexplained weight gain, unexplained weight loss, heat intolerance, cold intolerance NEUROLOGIC: Positive: focal weakness or paresthesias, left arm Absent: headache, dizziness, unsteady gait, seizure, mental status changes, bladder or bowel incontinence PSYCHIATRIC: Absent: anxiety, depression, suicidal or homicidal ideation, hallucinations. PHYSICAL EXAMINATION Vital Signs - 24 hr 03/24/18 08:20 Temperature 97.8 F Pulse Rate 92 H Respiratory 18 Rate Blood Pressure 128/89 O2 Sat by Pulse 100 Oximetry (%) GENERAL: Awake, alert, and fully oriented, in no acute distress. HEAD: Normal with no signs of trauma. EYES: Pupils equal, round and reactive to light, extraocular movements intact, sclera anicteric, conjunctiva clear. No lid lag. EARS, NOSE, THROAT: Ears normal, nares patent, oropharynx clear without exudates. Moist mucous membranes. NECK: Normal range of motion, supple without lymphadenopathy, JVD, or masses. LUNGS: Breath sounds equal, clear to auscultation bilaterally. No wheezes, and no crackles. No accessory muscle use. HEART: Regular rate and rhythm, normal S1 and S2 without murmur, rub or gallop. ABDOMEN: Soft, nontender, not distended, normoactive bowel sounds, no guarding, no rebound, no masses. No hepatomegaly or splenomegaly. MUSCULOSKELETAL:decreased ROM of right shoulder and left arm UPPER EXTREMITIES: 2+ pulses, warm, well-perfused. No cyanosis. No clubbing. No peripheral edema. LOWER EXTREMITIES: 2+ pulses, warm, well-perfused. No calf tenderness. No peripheral edema. NEUROLOGICAL: Cranial nerves II-XII intact. Normal speech. Normal gait. motor 5 /5 PSYCHIATRIC: Cooperative. Good eye contact. Appropriate mood and affect. SKIN: Warm, dry, normal turgor, no rashes or lesions noted, normal capillary refill. Laboratory Results - last 24 hr 03/24/18 03/24/18 09:39 09:39 WBC 8.9 RBC 4.34 Hgb 12.7 Hct 39.3 MCV 90.7 MCH 29.3 MCHC 32.3 RDW 14.9 Plt Count 191 MPV 8.2 Absolute Neuts (auto) 5.4 Neutrophils % 60.0 Lymphocytes % 30.8 Monocytes % 7.0 Eosinophils % 1.6 Basophils % 0.6 Nucleated RBC % 0 Sodium 140 Potassium 4.8 Chloride 105 Carbon Dioxide 29 Anion Gap 6 L BUN 9 Creatinine 0.7 Creat Clearance w eGFR > 60 Random Glucose 88 Calcium 9.0 Total Bilirubin 0.3 AST 9 L ALT 13 Alkaline Phosphatase 97 Troponin I < 0.02 Total Protein 7.8 Albumin 3.6 ASSESSMENT/PLAN: This is s 53 year old female with a medical history of hypothyroid not on medication, right rotator cuff surgery, who presents with left shoulder pain with numbness and tingling x2days. Found to have possible C5 nerve root impingement. #neck pain/arm pain numbness; _CT cervical spine w/o contrast; -mild degenerative narrowing of C5-C6 intervertebral disc space bilateral uncovertebral hypertrophy, left more thatn right moderately narrowing the left foramen and possibly impinging left C5 nerve root. Note of nodular density in the left lung apex posterior;y; 4.5mm -Correlate with MRI -seen by Dr. Medina; neurosurgery -cont decaron 4mg IV6h -tordol prn -flexeril - pt #nodular density found on CT -f/u with chest CT as outpatient #hx of hypothyroid -not on medications -will order TSH #asthma: controlled -short acting beta agonist broncodilator prn VTE: scd GI;n/a Disposition: obs; pending MRI and pain control Visit type - Emergency Visit Emergency Visit: Yes ED Registration Date: 03/24/18 Care time: The patient presented to the Emergency Department on the above date and was hospitalized for further evaluation of their emergent condition. - New Patient This patient is new to me today: Yes Date on this admission: 03/24/18 - Critical Care Critical Care patient: No
[2018-03-24] MEDS ORDERED: KETOROLAC TROMETHAMINE 15 MG/ML VIAL IVPUSH PRN ×2 (13:23→13:56)
[2018-03-24] MEDS ORDERED: CYCLOBENZAPRINE HCL 10 MG TABLET (FP) PO PRN (13:43)
--- NOTE | 2018-03-24 13:54 | PN ---
Teaching Attending Note Name of Resident: Yvette Graham ATTENDING PHYSICIAN STATEMENT I saw and evaluated the patient. I reviewed the resident's note and discussed the case with the resident. I agree with the resident's findings and plan as documented with exceptions below. SUBJECTIVE: 53 yof with PMhx of right rotator cuff injury, hypothyroidism, not on meds?, prior h/o sciatica s/p low back injections (?L spine vs SI) comes with 1 1/2 week history of sharp neck pain from right radiating down left arm associated with left upper extremity numbness, left fingers tingling and pain left upper back/left upper chest wall, some improvement with arm elevation but worsened when attempted to bring left arm down. Denies any arm weakness, recent trauma, whiplash injury, heavy lifting, fevers, chills or new concerns. 12 point ROS done, also positive for constipation, with intermittent hematochezia, had colonscopy with reported haemorrhoids. OBJECTIVE: Vital Signs Period Temp Pulse Resp BP Sys/Garcia Pulse Ox Last 24 Hr 97.7 F-97.8 F 63-92 18- 128-135/75-89 100-100 Intake & Output 03/21/18 03/22/18 03/23/18 03/24/18 23:59 23:59 23:59 23:59 Weight 151 lb 0.266 oz GENERAL: Awake, alert, and fully oriented, in no acute distress. HEAD: Normal with no signs of trauma. EYES: Pupils equal, round and reactive to light, extraocular movements intact, sclera anicteric, conjunctiva clear. No lid lag. EARS, NOSE, THROAT: Ears normal, nares patent, oropharynx clear without exudates. Moist mucous membranes. NECK: full ROM, soft, supple, no C spine tenderness elicited on exam LUNGS: Breath sounds equal, clear to auscultation bilaterally. No wheezes, and no crackles. No accessory muscle use. HEART: S1S2 regular rate rhythm ABDOMEN: Soft, nontender, not distended, normoactive bowel sounds, no guarding, no rebound, no masses. MUSCULOSKELETAL: left upper back and left upper chest wall vague areas of point tenderness, no swelling/erythema/induration noted, LUE full ROM but worsening pain when attempting to bring LUE down. UPPER EXTREMITIES: 2+ pulses, warm, well-perfused. No cyanosis. No clubbing. No peripheral edema. LOWER EXTREMITIES: 2+ pulses, warm, well-perfused. No calf tenderness. No peripheral edema. NEUROLOGICAL: AAOX3, power 5/5 all extremities but some limitation LUE from pain, decreased gross touch LUE upper left neck region and left upper chest and left upper back region, facial symmetry, tongue midline, Toes down going PSYCHIATRIC: Cooperative. Good eye contact. Appropriate mood and affect. SKIN: Warm, dry, normal turgor, no rashes or lesions noted, normal capillary refill. Home Medications Medication Instructions Recorded Levothyroxine [Synthroid -] 50 mcg PO DAILY 08/04/17 Dicyclomine HCl [Bentyl -] 10 mg PO BID 08/05/17 Fluticasone/Salmeterol [Advair 1 each IH Q12H 08/05/17 250-50 Diskus] Lipase/Protease/Amylase [Creon Dr 1 each PO TID 08/05/17 36,000 Units Capsule] Ondansetron HCl [Zofran] 4 mg PO Q8H PRN 08/05/17 Methocarbamol [Robaxin -] 500 mg PO TID #21 tablet 03/21/18 Naproxen 500 mg PO BID PRN #20 tablet 03/21/18 Active Medications Acetaminophen (Tylenol -) 650 mg PO Q4H PRN PRN Reason: PAIN LEVEL 1-5 Cyclobenzaprine HCl (Flexeril -) 10 mg PO TID [facility] Dexamethasone Sodium Phosphate (Decadron Injection -) 4 mg IVPUSH Q6H [place] Gabapentin (Neurontin -) 300 mg PO TID [facility] Ketorolac Tromethamine (Toradol Injection -) 30 mg IVPUSH Q6H PRN PRN Reason: PAIN LEVEL 6-10 Stop: 03/29/18 13:22 Methyl Salicylate (Abhijit-Barber -) 1 applic TP BID [facility] Laboratory Results - last 24 hr 03/24/18 03/24/18 09:39 09:39 WBC 8.9 RBC 4.34 Hgb 12.7 Hct 39.3 MCV 90.7 MCH 29.3 MCHC 32.3 RDW 14.9 Plt Count 191 MPV 8.2 Absolute Neuts (auto) 5.4 Neutrophils % 60.0 Lymphocytes % 30.8 Monocytes % 7.0 Eosinophils % 1.6 Basophils % 0.6 Nucleated RBC % 0 Sodium 140 Potassium 4.8 Chloride 105 Carbon Dioxide 29 Anion Gap 6 L BUN 9 Creatinine 0.7 Creat Clearance w eGFR > 60 Random Glucose 88 Calcium 9.0 Total Bilirubin 0.3 AST 9 L ALT 13 Alkaline Phosphatase 97 Troponin I < 0.02 Total Protein 7.[address] C-spine results noted EKG: NSR, incomplete RBBB ASSESSMENT AND PLAN: 53 yof with PMHx of rotator cuff tear, hypothyroidism (?Not on meds), prior ' back injections' comes with Cervical spine degenerative disease with radiculopathy. -C-spine degenerative disease with nerve impingement/Radiculopathy -Hypothyroidism, ?not on meds -H/o sciatica with 'back injections' -h/o rotator cuff tear Plan: Neurosurgery input appreciated. MRI C-spine, PT eval. Pain control with tylenol/toradol. Add gabapentin and flexeril. DVTPPX if prolonged stay anticipated >48 hours. Check TSH PPI Dispo admit to obs, d/c in 24 hours with outpatient PT and spine follow up if improves and no concerns. Plan discussed with patient in detail, all questions answered. Total admit time 50 min.
[2018-03-24] MEDS ORDERED: ACETAMINOPHEN 325 MG TABLET (FP) PO PRN (13:55)
[2018-03-24] MEDS ORDERED: CYCLOBENZAPRINE HCL 10 MG TABLET (FP) ONE (14:11)
[2018-03-24] MEDS: CYCLOBENZAPRINE HCL 10 MG TABLET (FP) PO SCH ×2 (14:22→22:35)
[2018-03-24] MEDS: GABAPENTIN 300 MG CAPSULE (FP) PO SCH ×2 (14:23→22:36)
[2018-03-24 15:22] VITALS: BMI 25.5
[2018-03-24] MEDS: DEXAMETHASONE SOD PHOSPHATE 4 MG/1 ML VIAL IVPUSH SCH ×2 (17:22→23:51)
[2018-03-24] MEDS: METHYL SALICYLATE/MENTHOL OINT 30 GM TUBE TP SCH ×2 (17:54→23:04)
[2018-03-24 20:27] LABS: URINE APPEARANCE CLEAR; URINE BILIRUBIN NEGATIVE (<2.0 mg/dL); URINE COLOR YELLOW; URINE GLUCOSE (UA) NEGATIVE (NEGATIVE); URINE KETONE NEGATIVE (NEGATIVE); URINE LEUK ESTERASE NEGATIVE (NEGATIVE); URINE NITRITE NEGATIVE (NEGATIVE); URINE PROTEIN NEGATIVE (NEGATIVE); URINE UROBILINOGEN NEGATIVE mg/dL (0.2-1.0)
[2018-03-25] MEDS ORDERED: ASPIRIN 81 MG CHEWABLE TABLETS PO ONE (01:59)
[2018-03-25] MEDS ORDERED: PANTOPRAZOLE SODIUM 40 MG VIAL IVPUSH ONE (02:00)
[2018-03-25] MEDS: DEXAMETHASONE SOD PHOSPHATE 4 MG/1 ML VIAL IVPUSH SCH ×2 (06:31→13:59)
[2018-03-25] MEDS: GABAPENTIN 300 MG CAPSULE (FP) PO SCH ×2 (06:31→14:00)
[2018-03-25] MEDS: CYCLOBENZAPRINE HCL 10 MG TABLET (FP) PO SCH ×2 (06:31→13:59)
[2018-03-25 07:41] LABS: ANION GAP 7 MMOL/L (8-16); BLOOD UREA NITROGEN 19 mg/dL (7-18); CALCIUM 9.7 mg/dL (8.5-10.1); CHLORIDE 102 mmol/L (98-107); CO2 28 mmol/L (21-32); CREATININE 0.8 mg/dL (0.55-1.3); GLUCOSE,RANDOM 136 mg/dL (74-106); POTASSIUM 5.2 mmol/L (3.5-5.1); SODIUM 136 mmol/L (136-145)
[2018-03-25 08:04] LABS: INR 1.09 (0.83-1.09); PROTHROMBIN TIME (PATIENT) 12.9 SEC (9.7-13.0)
[2018-03-25] MEDS ORDERED: IBUPROFEN 600 MG TABLET (FP) PO ONE (08:15)
[2018-03-25] MEDS ORDERED: PT OWN MED DRAWER 7, Y5N ONE (09:13)
[2018-03-25] MEDS: METHYL SALICYLATE/MENTHOL OINT 30 GM TUBE TP SCH (09:14)
--- NOTE | 2018-03-25 09:16 | PN ---
Progress Note (short form) - Note Progress Note: NEUROSURGERY Walking in hallway with assistance H/o R rotator cuff repair c/o 1 1/2 wk h/o left sided neck pain which radiating to left arm with associated tingling/numbness down her left fingers. She reports pain is exacerbated with movement of the left UE. She also reports some anterior left chest pain. + Subjective L arm weakness. No Lhermitte's sign or B/B dysfunction. Pain better today. (yesterday 01/26 today 07/27) PE: AF, VSS HEENT-NC/AT; Neck- L paraspinal muscle spasm; Cor- RR; Lungs- CTA B; Abd- benign ; Ext- no sign of DVT CN- intact; Motor- 5/5 except L B/BR/T/intrinsics 4, pain limited; Sensation- decreased LT L C6-7-8; DTR- 2+ CT C spine- marked C4-5 and C5-6 DDD, spondylosis; L > R C4-5 and C5-6 foramenal stenosis; loss of lordosis MRI C spine- C4-5, C5-6 DDD; mild stenosis of canal at C4-5 and moderate stenosis C5-6; L C5-6 foramenal moderate stenosis; L C6-7 paracentral disc protrusion with mild thecal sac impingement C4-5 and C5-6 DDD and L C6-7 HNP with stenosis and L C5, C6, and C7 radiculopathy Trial of decadron, neurontin 300 mg tid, PT PT walking with pt ROM exercises UE Too early to detect changes on EMG as it has only been 1 1/2 weeks since symptom onset Hopefully will improve with medical tx above Transition to PO medrol tomorrow D/w pt
--- NOTE | 2018-03-25 09:58 | CONS ---
DATE OF CONSULTATION: 03/24/2018 REQUESTING PHYSICIAN: Dr. Brady SUPERVISOR TUMBLING AND ROLLING: Davin Medina MD, Neurosurgery. CHIEF COMPLAINT: Neck pain and left C5, C6, and C7 radiculopathy. HISTORY OF PRESENT ILLNESS: The patient is a 53-year-old, right-handed female with history of right rotator cuff surgery and osteoarthritis, who complains of a 1-1/2-week history of acute onset of left-sided neck pain radiating down to the left chest, shoulder, arm, forearm, and the left hand. There is associated numbness and tingling, as well as some subjective weakness. The pain is worse with upper extremity movement. She denies Lhermitte sign and has no bowel or bladder dysfunction. She has not undergone physical therapy or pain management injections. She took some [id number] medication which was not helpful. PAST MEDICAL HISTORY: Is significant for right rotator cuff surgery repair and asthma. MEDICATIONS: Albuterol inhaler. ALLERGIES: MORPHINE; DEMEROL. SOCIAL HISTORY: She does not smoke and only drinks alcohol socially. She does not work. She lives at home. REVIEW OF SYSTEMS: Otherwise negative for other major constitutional, head and neck, cardiovascular, pulmonary, gastrointestinal, genitourinary, endocrinological, neurological or psychological problem except for the above. PHYSICAL EXAMINATION: Vital Signs: Temperature is 97.8, blood pressure is 120/89, with a pulse rate of 92, O2 saturation is 100% on room air. HEENT: Examination shows her to be normocephalic, atraumatic, anicteric. Neck: Supple. She has decreased range of motion. Cervical spine flexion is 30 degrees and extension is 10 degrees, lateral rotation is 45 degrees on the right and 40 degrees on the left. Right shoulder abduction is 100 degrees and left shoulder abduction is 120 degrees. Coronary: Examination demonstrated a regular rhythm. Lungs: Clear to auscultation bilaterally. Abdomen: Benign. Extremities: Examination shows no signs of DVT. Neurologic: She is awake, alert, and oriented x3. Cranial nerve examination is intact 2 through 12. Motor examination upper and lower extremities shows 5/5 strength, except left biceps, brachioradialis, wrist extensor, triceps, and hand intrinsics muscles which are 4- limited by pain. Sensory examination demonstrates decreased light touch sensation in the left C6, C7, and C8 distribution. Deep tendon reflexes are 2+ throughout. There is no pathological long-tract sign. Gait was not tested for safety reasons. LABORATORY: Examination shows white blood cell count 8.9, hemoglobin is 12.7, and platelet count is 191,000. Serum sodium is 140, BUN and creatinine are 9 and 0.7, respectively. LFTs are normal. Troponin was less than 0.02. IMAGING: Chest x-ray shows no acute pathology. Right shoulder surgery is noted. A CT scan of her cervical spine demonstrated C4-5 and C5-6 marked degenerative disk disease with degenerative disk space narrowing and bridging osteophytes. There is loss of cervical lordosis. There is left greater than right C4-5, C5-6 foraminal stenosis with likely nerve root impingement. Note is made of an enlarged thyroid gland. A left lung apex-nodule density is noted. IMPRESSION: 1. C4-C5, C5-C6 degenerative disk disease with foraminal stenosis with resulting left C5, C6, and C7 radiculopathy. 2. Asthma. 3. History of right shoulder surgery. RECOMMENDATIONS: The patient presents with increasing left-sided neck pain and left upper extremity radiculopathy of approximately 1-1/2 weeks' duration. She denies any recent trauma or fall. On my examination today, she has subjective weakness in the left upper extremity, possibly from pain limited. She also has numbness of her left upper extremity and left hand. Reflexes are not affected. A CT scan of her cervical spine demonstrated reversal of cervical lordosis consistent with her cervical paraspinal muscle spasm and cervical spondylosis. She also has foraminal stenosis. I recommended IV steroids with 4 mg of Decadron and Neurontin 300 mg 3 times a day. MRI of the cervical spine is recommended to better evaluate the degree of left- sided cervical root impingement, especially at the C4-5, C5-6 and C6-7 levels. If her pain could be adequately controlled with the medications given, she could be discharged to be managed as an outpatient for pain management and physical therapy. On the other hand, if pain cannot be controlled and her weakness persists, she could be admitted for further evaluation including EMG and possible pain management injection. The above was discussed with the patient and the emergency room team. Joshua [id number] LOTTIE
[2018-03-25] MEDS ORDERED: PANTOPRAZOLE 40 MG TABLET (FP) PO SCH (10:00)
--- NOTE | 2018-03-25 11:46 | EKG ---
Test Reason : Blood Pressure : / mmHG Vent. Rate : 063 BPM Atrial Rate : 063 BPM P-R Int : 142 ms QRS Dur : 096 ms QT Int : 400 ms P-R-T Axes : 035 -29 020 degrees QTc Int : 409 ms NORMAL SINUS RHYTHM INCOMPLETE RIGHT BUNDLE BRANCH BLOCK BORDERLINE ECG WHEN COMPARED WITH ECG OF 24-MAR-2018 08:46, NO SIGNIFICANT CHANGE WAS FOUND Confirmed by DARELL DA SILVA, JANNA ([id number]) on 03/25/2018 11:45:38 AM Referred By: Confirmed By:JANNA LOZOYA MD
--- NOTE | 2018-03-25 13:20 | DS ---
Physical Exam: SUBJECTIVE: Patient seen and examined at bedside. C/o severe chest pain. OBJECTIVE: Vital Signs Period Temp Pulse Resp BP Sys/Garcia Pulse Ox Last 24 Hr 98 F-98.2 F 63-96 18-20 103-136/69-92 99-100 PHYSICAL EXAM GENERAL: AAOx3, Facial grimacing in pain HEAD: NC/AT EYES: EOMI ENT: MMM NECK: Supple LUNGS: CTA B/L CHEST- Chest is tender to palpation, chest pain exacerbated up deep inspiration HEART: RRR No MRG appreciated ABDOMEN: NDNT No HSM appreciated . EXTREMITIES: No CCE NEUROLOGICAL: Grossly intact LABS Laboratory Results - last 24 hr 03/24/18 03/24/18 03/25/18 16:25 20:00 02:15 PT with INR INR Sodium Potassium Plasma Potassium Chloride Carbon Dioxide Anion Gap BUN Creatinine Creat Clearance w eGFR Random Glucose Calcium Creatine Kinase 79 Troponin I < 0.02 TSH Serum , Qual Negative Urine Color Yellow Urine Appearance Clear Urine pH 5.0 D Ur Specific [place] 1.024 Urine Protein Negative Urine Glucose (UA) Negative Urine Ketones Negative Urine Blood Negative Urine Nitrite Negative Urine Bilirubin Negative Urine Urobilinogen Negative Ur Leukocyte Esterase Negative 03/25/18 03/25/18 03/25/18 06:00 06:00 09:13 PT with INR 12.90 INR 1.09 Sodium 136 Potassium 5.2 H Plasma Potassium 3.9 Chloride 102 Carbon Dioxide 28 Anion Gap 7 L BUN 19 H Creatinine 0.8 Creat Clearance w eGFR > 60 Random Glucose 136 H Calcium 9.7 Creatine Kinase Troponin I < 0.02 TSH 3.53 Serum , Qual Urine Color Urine Appearance Urine pH Ur Specific [place] Urine Protein Urine Glucose (UA) Urine Ketones Urine Blood Urine Nitrite Urine Bilirubin Urine Urobilinogen Ur Leukocyte Esterase HOSPITAL COURSE: Date of Admission:03/24/18 Pt presented to [facility] c/o severe neck pain with radiation down her left arm as well as chest pain. Pt subsequently underwent imaging with a CT and an MRI of her cervical spine. Imaging revealed left posterolateral disc protrusion encroaching on ventral subarachnoid space contacting the left ventral surface of the spinal cord and C5-C6 left neural foraminal stenosis. Please see report for details. Pt was started on decadron, flexeril, ketorolac, and neurontin. EKG 's did not reveal any acute abnormalities. Troponins were negative. Pt was d/c on medrol dose pack and neurontin. Pt was given referrel to see Neurosurgeon in 1 week. Informed to follow up with PCP this week. Date of Discharge: 03/25/18 Minutes to complete discharge: 35 Discharge Summary Reason For Visit: RADICULOPATHY AFFECTING UPPER EXTREMITY Current Active Problems Radiculopathy affecting upper extremity (Acute) Condition: Good - Instructions Diet, Activity, Other Instructions: You were treated at [facility] for nerve impingement of the nerves in your neck and for chest pain. You were found to have cervical compression of your spinal cord found on CT MRI of your cervical region. You were treated with steroids, Flexeril, and Neurontin. Please inform your Primary Care Doctor that a lung nodule was observed on CT imaging of your chest and follow up imaging is reccomened to assess for lung nodule. Please see your Primary Care physician in 1 week. Please follow up with the Neurosurgeon in 1 week. You will be sent home with the following medications. These have been sent to your pharmacy -Flexeril 5 MG TWICe per day used as needed for muscle spasms (do not take for more than 5-7 days) -Neurontin 300 MG THREE times per day. -Protonix 40 mg daily while on medrol dose (to avoid reflux symptoms) and then as needed -Ibuprofen 400 mg every 6 hours if needed for pain. -Medrol dose pack as directed Flexeril and neurontin can make you dizzy or drowsy. Do not drive, operative heavy machinery on these medication.s Left arm exercises as directed by physical therapy. Please discuss with your doctor for outpatient physical therapy referral. Please return to Emergency Department immediately if you begin to experience further chest pain, shortness of breath, nausea, vomiting, worsening of pain in your neck/arms, new weakness, tingling, numbness, bowel or bladder incontinence orany new concernso Referrals: Elizabeth Donaldson MD [Primary Care Provider] - 1 Week Davin Medina MD [Staff Physician] - 1 Week Disposition: HOME - Home Medications Comprehensive Discharge Medication List: Ambulatory Orders Cyclobenzaprine HCl [Flexeril -] 5 mg PO BID #10 tablet 03/25/18 Gabapentin [Neurontin -] 300 mg PO TID #90 capsule 03/25/18 Pantoprazole Sodium [Protonix -] 40 mg PO DAILY #30 tablet.ec 03/25/18 This patient is new to me today: Yes Date on this admission: 03/25/18 Emergency Visit: Yes ED Registration Date: 03/24/18 Care time: The patient presented to the Emergency Department on the above date and was hospitalized for further evaluation of their emergent condition. Critical Care patient: No - Discharge Referral Referred to [facility] Med P.C.: No
[2018-03-25 14:06] VITALS: BP 125/83; PULSE 80; TEMP 98.4
--- NOTE | 2018-03-25 15:07 | PN ---
Teaching Attending Note Name of Resident: Jose Mendiola ATTENDING PHYSICIAN STATEMENT I saw and evaluated the patient. I reviewed the resident's note and discussed the case with the resident. I agree with the resident's findings and plan as documented with exceptions below. SUBJECTIVE: Patient seen and examined. Left arm symptoms improved, still with some sharp pain with movements. Left upper back and left upper chest wall pain improved from yesterday. Eager to go home. No new complaints. OBJECTIVE: Vital Signs Period Temp Pulse Resp BP Sys/Garcia Pulse Ox Last 24 Hr 98 F-98.4 F 63-96 18-20 103-126/69-90 99 Intake & Output 03/22/18 03/23/18 03/24/18 03/25/18 23:59 23:59 23:59 23:59 Intake Total 300 750 Balance 300 750 Weight 139 lb 9.6 oz General: sitting in bed in no acute distress Musculoskeletal: improved LUE ROM, sensory exam unchanged, some left upper chest wall and left upper back tenderness improved from yesterday Chest: CTAB, no rales or wheezing Abdomen:soft, NT, ND Home Medications Medication Instructions Recorded Acetaminophen [Pain Reliever] 500 mg PO TID PRN #20 tablet 03/25/18 Cyclobenzaprine HCl [Flexeril -] 10 mg PO BID PRN #14 tablet 03/25/18 Gabapentin 300 mg PO TID #90 capsule 03/25/18 Ibuprofen 400 mg PO TID PRN #20 tablet 03/25/18 Methyl Salicylate/Menthol Oint 1 applic TP BID applic 03/25/18 [Analgesic [place] -] Methylprednisolone [Medrol Dose 4 mg PO ASDIR #21 tablet 03/25/18 [place]] Pantoprazole Sodium [Protonix] 40 mg PO DAILY #14 tablet. 03/25/18 MRI C-spine reviewed ASSESSMENT AND PLAN: 53 yof with PMHx of rotator cuff tear, hypothyroidism (?Not on meds), prior ' back injections' comes with Cervical spine degenerative disease with radiculopathy. -C-spine degenerative disease with nerve impingement/Radiculopathy -Hypothyroidism, ?not on meds -H/o sciatica with 'back injections' -h/o rotator cuff tear Plan: Exam improved. PT ryne noted. Discussed with Dr. Medina, d/c on medrol dose pack and neurontin. Activity instruction discussed by PT D/c home today with outpatient PCP and neurosurgery referral and outpatient PT. Activity, medication and follow up instructions discussed in detail with patient , all questions answered. Patient relays full understanding and agrees to comply.
== END 2018-03-25 16:27 | disposition home or self-care (01) ==
LOC: JER 08:19 → INTOOBSV 12:10 → JERBED 12:10 → UNDOADMOB 12:10 → JERBED 12:34 → J7W 14:53
PROVIDERS: ADMIT Internal Medicine; ATTEND Hospitalist
PROC: 3E0233Z Introduction of Anti-inflammatory into Muscle, Percutaneous Approach (ICD-10-PCS; principal; 2018-03-24)
PROC: 3E0233Z Introduction of Anti-inflammatory into Muscle, Percutaneous Approach (ICD-10-PCS; 2018-03-24)
PROC: 3E0333Z Introduction of Anti-inflammatory into Peripheral Vein, Percutaneous Approach (ICD-10-PCS; 2018-03-24)
PROC: 3E0333Z Introduction of Anti-inflammatory into Peripheral Vein, Percutaneous Approach (ICD-10-PCS; 2018-03-24)
PROC: 3E033GC Introduction of Other Therapeutic Substance into Peripheral Vein, Percutaneous Approach (ICD-10-PCS; 2018-03-24)
DX: M54.12 Radiculopathy, cervical region (principal); M50.30 Other cervical disc degeneration, unspecified cervical region; M48.02 Spinal stenosis, cervical region; R91.8 Other nonspecific abnormal finding of lung field; E03.9 Hypothyroidism, unspecified; J45.909 Unspecified asthma, uncomplicated; M54.30 Sciatica, unspecified side; I34.1 Nonrheumatic mitral (valve) prolapse; Z88.8 Allergy status to other drugs, medicaments and biological substances
CPT/HCPCS: 36415; 71046-TC-FY; 72125-TC; 72141-TC; 80048; 80053; 81003; 82550; 84132; 84443; 84484; 84703; 85025; 85610; 87086; 93005; 93010; 97116-GP; 97161-GP; 99285-25; G0378

== ENCOUNTER 2018-04-05 14:27 | Observation (INO) | payer OTHER ==
[2018-04-05 14:41] VITALS: BMI 25.6
--- NOTE | 2018-04-05 14:57 | PDOC ---
Attending Attestation - Resident Resident Name: Davin Leal - ED Attending Attestation I have performed the following: I have examined & evaluated the patient, The case was reviewed & discussed with the resident, I agree w/resident's findings & plan, Exceptions are as noted - HPI HPI: 53y F hx of kidney stones, endometriosis, HL, MVP, back pain, chronic constipation, presents with lightheadness for several days, notes she feels like she was about to 'pass out' - it is constant, exists when she is standing or sitting down. no exacerbating complaint. pt also has several seondary complaints including changes to her speech, left sided facial tingling, L arm weakness, L arm pain for severald ays (she was iniated as a code camara as she gave a history of these symptoms starting upon arrival) - pt also endorses 1 month of rectal bleeding - sometimes normal well formed stools that are brown and sometimes dark in color - no melena, diarrhea. denies urinary comlaints. - Physicial Exam PE: 04/05/18 18:39 GENERAL: The patient is awake, alert, and fully oriented, Nontoxic - in no acute distress. HEAD: Normocephalic, atraumatic. EYES: extraocular movements intact, sclera anicteric, conjunctiva clear. ENT: Normal voice, Moist mucous membranes. NECK: Normal range of motion, supple LUNGS: Breath sounds equal, clear to auscultation bilaterally. No wheezes, no rhonchi, no rales. HEART: Regular rate and rhythm, normal S1 and S2 without murmur, rub or gallop. ABDOMEN: Soft, nontender, No guarding, no rebound. . No CVA tenderness EXTREMITIES: Normal range of motion, no edema. No clubbing or cyanosis. No cords, erythema, or tenderness. NEUROLOGICAL: No facial assymetry, Normal speech, was all 4 extremities symmetrically, slightly decreased sensation in the anterior L face, PSYCH: Normal mood, normal affect. SKIN: Warm, Dry, normal turgor, - Medical Decision Making 04/05/18 14:55 Differential for position the for the patient's symptoms is broad and includes possible anemia, at about derangements acute coronary syndrome, CVA, cervical radiculopathy. Patient was initially called as a code brothers upon arrival, CT head is negative. We'll obtain blood work, anticipate admission for further management of her symptoms, will rule her out for ACS, will discuss with neurology 04/05/18 18:58 Heart Score/ECG Review - ECG Impressions Comment:: 04/05/18 18:39 Twelve-lead EKG was performed and reviewed by me. There is normal sinus rhythm with a normal rate. Rate of 87 Left axis deviation Incomplete right bundle-branch block T wave inversion in the anterior leads
[2018-04-05] MEDS: SODIUM CHLORIDE 1,000 ML IV SCH (15:30)
--- NOTE | 2018-04-05 15:31 | PDOC ---
History of Present Illness - General Chief Complaint: Lightheaded Stated Complaint: WEAKNESS Time Seen by Provider: 04/05/18 14:48 History Source: Patient Exam Limitations: No Limitations - History of Present Illness Initial Comments: 04/05/18 15:29 Patient is a 53F with history of asthma here today complaining of dizziness, weakness, chest pain, decreased sensation in left arm and dysarthria that onset suddenly at 2:25p while her son was being evaluated at [facility]. Patient was evaluated for possible stroke and a code [employer] was called due to her reported sensory deficit and dysarthria. Patient denies fevers, chills, nausea, vomiting. Patient's chest pain is described as a pressure that radiates to her neck. Denies leg swelling, abdominal pain, dysuria. NIH Stroke Scale - Last Known Well Date/Time & Onset Date Last Known Well: 04/05/18 Time Last Known Well: 14:25 - Initial Evaluation Level of consciousness: Alert Ask patient the month and their age: Answers both correctly Ask patient to open & close eyes; make fist and let go: Obeys both correctly Best gaze (horizontal eye movement): Normal Visual field testing: No visual field loss Facial paresis (Show teeth/raise eyebrows/close eyes tight): Minor paralysis ( flattened nasolabial fold, asymmetry on smiling) Motor Function: Left Arm: Normal Motor Function: Right Arm: Normal (extends arm 90 (or 45) degrees for 10 seconds without drift Motor Function: Left Leg: Normal (extends leg 30 degrees for 5 seconds without drift) Motor Function: Right Leg: Normal (extends leg 30 degrees for 5 seconds without drift) Limb Ataxia: No ataxia Sensory(Use pinprick test arms,legs,trunk,face/side to side): Mild to moderate decrease in sensation Best language (Describe picture, name items, read sentences): No Aphasia Dysarthria (read several words): Normal articulation Extinction and Inattention: No abnormality - Total Score NIH Stroke Scale Score: 2 Past History - Past Medical History Allergies/Adverse Reactions: Allergies Allergy/AdvReac Type Severity Reaction Status Date / Time levothyroxine Allergy Severe Difficulty Verified 04/05/18 14:37 Breathing meperidine HCl [From Demerol] Allergy Verified 04/05/18 14:37 morphine Allergy Verified 04/05/18 14:37 Home Medications: Ambulatory Orders Acetaminophen [Pain Reliever] 500 mg PO TID PRN #20 tablet 03/25/18 Cyclobenzaprine HCl [Flexeril -] 10 mg PO BID PRN #14 tablet 03/25/18 Gabapentin 300 mg PO TID #90 capsule 03/25/18 Ibuprofen 400 mg PO TID PRN #20 tablet 03/25/18 Methyl Salicylate/Menthol Oint [Analgesic [place] -] 1 applic TP BID applic Methylprednisolone [Medrol Dose [place]] 4 mg PO ASDIR #21 tablet 03/25/18 Pantoprazole Sodium [Protonix] 40 mg PO DAILY #14 tablet. 03/25/18 Anemia: No Asthma: Yes Cancer: No Cardiac Disorders: Yes (MVP) CVA: No COPD: No CHF: No DVT: No Dementia: No Diabetes: No Dialysis: No GI Disorders: Yes (constipation) Disorders: Yes (ENDOMETRIOSIS) HTN: No Hypercholesterolemia: Yes Kidney Stones: Yes Liver Disease: No Psychiatric Problems: No Seizures: No Thyroid Disease: Yes Lung CA: No - Surgical History Abdominal Surgery: Yes (tube ligation x3, adhesions removed) Appendectomy: No Cardiac Surgery: No Cholecystectomy: No Lung Surgery: No Neurologic Surgery: (scar tissue) Orthopedic Surgery: Yes (right rotator cuff) - Immunization History Immunization Up to Date: Yes - Suicide/Smoking/Psychosocial Hx Smoking History: Never smoked Have you smoked in the past 12 months: No If you are a former smoker, when did you quit?: 25 yrs ago Hx Alcohol Use: No Drug/Substance Use Hx: No Substance Use Type: Marijuana Hx Substance Use Treatment: No Review of Systems - Review of Systems Comments:: 04/05/18 15:52 GENERAL/CONSTITUTIONAL: No fever or chills. No weakness. HEAD, EYES, EARS, NOSE AND THROAT: No change in vision. No sore throat. CARDIOVASCULAR: +chest pain +shortness of breath RESPIRATORY: No cough, wheezing, or hemoptysis. GASTROINTESTINAL: No nausea, vomiting, diarrhea or constipation. GENITOURINARY: No dysuria, frequency, or change in urination. MUSCULOSKELETAL: No joint or muscle swelling or pain. No neck or back pain. SKIN: No rash NEUROLOGIC: No headache, no LOC, +l arm sensation decrease reported ENDOCRINE: No increased thirst. No abnormal weight change HEMATOLOGIC/LYMPHATIC: No anemia, easy bleeding, or history of blood clots. ALLERGIC/IMMUNOLOGIC: No hives or skin allergy. *Physical Exam - Vital Signs Last Vital Signs Temp Pulse Resp BP Pulse Ox 98.6 F 95 H 18 164/86 100 04/05/18 14:37 04/05/18 14:37 04/05/18 14:37 04/05/18 14:37 04/05/18 14:37 - Physical Exam Comments: 04/05/18 16:09 GENERAL: Awake, alert, and fully oriented, in no acute distress HEAD: No signs of trauma, normocephalic, atraumatic EYES: PERRLA, EOMI, sclera anicteric, conjunctiva clear ENT: Auricles normal inspection, hearing grossly normal, nares patent, oropharynx clear without exudates. Moist mucosa NECK: Normal ROM, supple, no lymphadenopathy, JVD, or masses LUNGS: No distress, speaks full sentences, clear to auscultation bilaterally HEART: Regular rate and rhythm, normal S1 and S2, no murmurs, rubs or gallops, peripheral pulses normal and equal bilaterally. ABDOMEN: Soft, nontender, normoactive bowel sounds. No guarding, no rebound. No masses EXTREMITIES: Normal inspection, Normal range of motion, no edema. No clubbing or cyanosis. NEUROLOGICAL: NIHSS 3 as per additional note section SKIN: Warm, Dry, normal turgor, no rashes or lesions noted. Moderate Sedation - Procedure Monitoring Vital Signs: Procedure Monitoring Vital Signs Temperature 98.6 F 04/05/18 14:37 Pulse Rate 95 H 04/05/18 14:37 Respiratory Rate 18 04/05/18 14:37 Blood Pressure 164/86 04/05/18 14:37 O2 Sat by Pulse Oximetry (%) 100 04/05/18 14:37 ED Treatment Course - LABORATORY CBC & Chemistry Diagram: 04/05/18 15:15 04/05/18 15:15 - RADIOLOGY Radiology Studies Ordered: Category Date Time Status HEAD CT (STROKE) [CT] Stat CT Scan 04/05/18 14:45 Completed Medical Decision Making - Medical Decision Making 04/05/18 16:17 Patient is 53F with history of asthma here today with possible stroke. Vitals stable. Exam not consistent with stroke syndrome, and no objective supporting sign of stroke noted. Patient's NIHSS 2/3, does not qualify for tPA due to lack of clinical suspicion of stroke. After initial evaluation, patient is complaining of sensory loss in distal V1/V2/V3 but not proximal sections. Head CT normal. Basic labs reassuring. Will workup further with CTA of neck to rule out dissection. Low clinical suspicion for stroke, but do not believe I can rule out TIA. Dr Marinelli consulted, aware. 04/05/18 16:41 Patient now states to attending symptoms started 2 days ago with dizziness and weakness. History inconsistent. 04/05/18 18:57 Laboratory Tests 04/05/18 04/05/18 15:15 15:15 WBC 8.8 Hgb 13.5 Plt Count 296 D BUN 10 Creatinine 0.9 Troponin I < 0.02 CBC normal. CMP reassuring. Trop undetectable. CTA ordered, pending result. Signed out to Dr Monique. *DC/Admit/Observation/Transfer Diagnosis at time of Disposition: TIA (transient ischemic attack) - Discharge Dispostion Condition at time of disposition: Stable - Referrals - Patient Instructions - Post Discharge Activity
[2018-04-05 15:41] LABS: BASO % 0.7 % (0-2.0); EOS % 1.8 % (0-4.5); HEMATOCRIT 39.6 % (32.4-45.2); HEMOGLOBIN 13.5 GM/dL (10.7-15.3); LYMPH % 33.3 % (8-40); MCH 30.5 pg (25.7-33.7); MCHC 34.2 g/dl (32.0-36.0); MEAN CELL VOLUME 89.4 fl (80-96); MEAN PLT VOLUME 8.6 fl (7.5-11.1); MONO % 7.5 % (3.8-10.2); NEUT % 56.7 % (42.8-82.8); PLATELET COUNT 296 K/MM3 (134-434); RBC 4.43 M/mm3 (3.60-5.2); RDW 14.6 % (11.6-15.6); WHITE BLOOD COUNT 8.8 K/mm3 (4.0-10.0)
[2018-04-05 15:52] LABS: INR 1.13 (0.83-1.09); PROTHROMBIN TIME (PATIENT) 13.3 SEC (9.7-13.0)
[2018-04-05 16:11] LABS: ALBUMIN 3.7 g/dl (3.4-5.0); ALK PHOS 98 U/L (45-117); ANION GAP 6 MMOL/L (8-16); BILIRUBIN,TOTAL 0.4 mg/dL (0.2-1); BLOOD UREA NITROGEN 10 mg/dL (7-18); CALCIUM 9.1 mg/dL (8.5-10.1); CHLORIDE 101 mmol/L (98-107); CHOLESTEROL 285 mg/dL (50-200); CO2 30 mmol/L (21-32); CREATININE 0.9 mg/dL (0.55-1.3); GLUCOSE,RANDOM 83 mg/dL (74-106); HDL CHOLESTEROL 64 mg/dL (40-60); SGPT/ALT 24 U/L (13-61); SODIUM 137 mmol/L (136-145); TOT PROT 8.3 g/dl (6.4-8.2); TRIGLYCERIDES 238 mg/dL (0-150)
[2018-04-05 16:12] LABS: POTASSIUM 4.7 mmol/L (3.5-5.1); SGOT/AST 23 U/L (15-37)
[2018-04-05] MEDS ORDERED: ASPIRIN 81 MG CHEWABLE TABLETS PO ONE (16:53)
[2018-04-05] MEDS ORDERED: ASPIRIN 81 MG CHEWABLE TABLETS ONE (19:36)
--- NOTE | 2018-04-05 20:45 | PN ---
Teaching Attending Note Name of Resident: Olman Rodriguez ATTENDING PHYSICIAN STATEMENT I saw and evaluated the patient. I reviewed the resident's note and discussed the case with the resident. I agree with the resident's findings and plan as documented. SUBJECTIVE: Patient is a 53 year old woman with history of kidney stones, endometriosis, HLD , MVP, back pain, chronic constipation, presents with lightheadedness for several days, notes she feels like she was about to 'pass out' - it is constant , exists when she is standing or sitting down. no exacerbating complaint. Also changes to her speech, left sided facial tingling, L arm weakness, L arm pain for several days (she was initiated as a code cam[facility] as she gave a history of these symptoms starting upon arrival) - has also had 1 month of rectal bleeding - sometimes normal well formed stools that are brown and sometimes dark in color - no melena or diarrhea. NIHSS was initially 2 and then 1. OBJECTIVE: Alert Vital Signs Period Temp Pulse Resp BP Sys/Garcia Pulse Ox Last 24 Hr 98.6 F 81-95 18-18 122-164/86-86 99-100 HEENT: No Jaundice, eye redness or discharge, PERRLA, EOMI. Normocephalic, atraumatic. External ears are normal and hearing is grossly intact. No nasal discharge. Neck: Supple, nontender. No palpable adenopathy or thyromegaly. No JVD Chest: Good effort. Clear to auscultation and percussion. Heart: Regular. No S3, rub or murmur Abdomen: Not distended, soft, nontender and no HSM. No rebound or guarding. Normoactive bowel sounds. Ext: Peripheral pulses intact. No leg edema. Skin: Warm and dry. No petechiae, rash or ecchymosis. Neuro: Alert. Oriented x3. Mild left facial numbness. CN 2-12 grossly intact. Sensation grossly intact in all four extremities and DTR are symmetric. Current Medications Generic Name Dose Route Start Last Admin Trade Name Freq PRN Reason Stop Dose Admin Sodium Chloride 1,000 mls @ 42 mls/hr 04/05/18 15:00 04/05/18 15:30 Normal Saline - IV 42 mls/hr ASDIR MELQUIADES Administration Home Medications Medication Instructions Recorded Acetaminophen [Pain Reliever] 500 mg PO TID PRN #20 tablet 03/25/18 Cyclobenzaprine HCl [Flexeril -] 10 mg PO BID PRN #14 tablet 03/25/18 Gabapentin 300 mg PO TID #90 capsule 03/25/18 Ibuprofen 400 mg PO TID PRN #20 tablet 03/25/18 Methyl Salicylate/Menthol Oint 1 applic TP BID applic 03/25/18 [Analgesic [place] -] Abnormal Lab Results 04/05/18 04/05/18 15:10 15:15 PT with INR 13.30 H INR 1.13 H Anion Gap 6 L Total Protein 8.3 H Triglycerides 238 H Cholesterol 285 H Total LDL Cholesterol 175 H HDL Cholesterol 64 H ASSESSMENT AND PLAN: 1. TIA - Neck CTA and brain CT sacn do not show any significant pathology. Not a candidate for tPA. Will monitor on telemetry, check swallow evaluation, treat with aspirin and optimal dose of statin, get ECHO, carotid doppler and brain MRI. PT and Neurology consults. Patient counseled about dietary modifications for hyperlipidemia. Chest pain is atypical. Troponin is negative but EKG shows nonspecific t wave changes. Will rule out ACS. Post discharge, needs outpatient GI evaluation for ? rectal bleeding. 2. DVT prophylaxis - Lovenox 40 mg SQ q 24 hours. 3. Advance directives - Full code
--- NOTE | 2018-04-05 21:12 | HP ---
CHIEF COMPLAINT: Generalized weakness and dysarthria PCP: Dr. Flores HISTORY OF PRESENT ILLNESS: 53yo F with history of asthma who presented today with generalized weakness and dysarthria after bringing her grandson to the emergency department. Her last known well was 14:25pm and she has never felt these symptoms before. At the time of presentation her NIHSS was 2 due to dysarthria and decreased L facial sensation however she reports she has been feeling better. She no longer feels lightheaded and her speech has returned to her normal. Pt also endorses some substernal L-sided anterior chest pain without radiation exacerbated with deep breathing. Pt denies any headaches, neck stiffness, blurry vision, focal weakness, shortness of breath, palpitations, back pain, CVA tenderness, abdominal pain, n/v/d/c. 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 Family History: Noncontributory Allergies levothyroxine Allergy (Severe, Verified 04/05/18 14:37) Difficulty Breathing throat feels tight, sweating meperidine HCl [From Demerol] Allergy (Verified 04/05/18 14:37) --drowsiness morphine Allergy (Verified 04/05/18 14:37) --GI upset HOME MEDICATIONS: Home Medications Medication Instructions Recorded Acetaminophen [Pain Reliever] 500 mg PO TID PRN #20 tablet 03/25/18 Cyclobenzaprine HCl [Flexeril -] 10 mg PO BID PRN #14 tablet 03/25/18 Gabapentin 300 mg PO TID #90 capsule 03/25/18 Ibuprofen 400 mg PO TID PRN #20 tablet 03/25/18 Methyl Salicylate/Menthol Oint 1 applic TP BID applic 03/25/18 [Analgesic [place] -] REVIEW OF SYSTEMS CONSTITUTIONAL: Present: Generalized weakness, lightheadedness Absent: fever, chills, diaphoresis, malaise, loss of appetite, weight change HEENT: Absent: rhinorrhea, nasal congestion, throat pain, difficulty swallowing, mouth swelling, ear pain, eye pain, visual changes CARDIOVASCULAR: Present: Chest discomfort Absent: syncope, palpitations, irregular heart rate, peripheral edema RESPIRATORY: Absent: cough, shortness of breath, dyspnea with exertion, orthopnea, wheezing, stridor, hemoptysis GASTROINTESTINAL: Absent: abdominal pain, abdominal distension, nausea, vomiting, diarrhea, constipation GENITOURINARY: Absent: dysuria, frequency, urgency, hesitancy, hematuria, flank pain MUSCULOSKELETAL: Absent: myalgia, arthralgia, joint swelling, back pain, neck pain SKIN: Absent: rash, itching, pallor NEUROLOGIC: Present: Dysarthria, focal numbness Absent: headache, dizziness, unsteady gait, seizure, mental status changes, bladder or bowel incontinence PSYCHIATRIC: Absent: anxiety, depression PHYSICAL EXAMINATION Vital Signs - 24 hr 04/05/18 04/05/18 14:37 16:06 Temperature 98.6 F Pulse Rate 95 H Pulse Rate [ 81 Apical] Respiratory 18 18 Rate Blood Pressure 164/86 Blood Pressure 122/86 [Right Arm] O2 Sat by Pulse 100 99 Oximetry (%) GENERAL: NAD, Awake, alert, and fully oriented, in no acute distress. HEENT: NC/AT, EOMI, JAIR, facial symmetry at rezst, no oral mucosa lesions or posterior oropharynx exudates, MMM NECK: No JVD, no bruits auscultated, supple without structural defects LUNGS: CTA bilaterally. No wheezes, and no crackles. No accessory muscle use. on RA HEART: RRR, normal S1 and S2 without murmur ABDOMEN: Soft, NT/Nd, normoactive bowel sounds, no guarding, MUSCULOSKELETAL: No CVA tenderness. Full ROM intact in all extremities EXTREMITIES: 2+ distal pulses, warm, well-perfused. No peripheral edema NEUROLOGICAL: EOMI, JAIR, no gaze palsy, Sensation of L CN V2-V3 distrubation dulled compared to R. CN II-IV intact. CN -XII intact. Sensation dulled on 5th digit of L hand compared to R. Strength 5/5 in all upper and lower extremity carney with limitations in R shoulder shrug due to previous injury. Babinski downgoing b/l. Reflexes 2/4 (biceps, triceps, patellar) PSYCHIATRIC: Cooperative. Good eye contact. Appropriate mood and affect. SKIN: Warm, dry, no rashes or lesions noted Laboratory Results - last 24 hr 04/05/18 04/05/18 04/05/18 15:10 15:15 15:15 WBC 8.8 RBC 4.43 Hgb 13.5 Hct 39.6 MCV 89.4 MCH 30.5 MCHC 34.2 RDW 14.6 Plt Count 296 D MPV 8.6 Absolute Neuts (auto) 5.0 Neutrophils % 56.7 Lymphocytes % 33.3 Monocytes % 7.5 Eosinophils % 1.8 Basophils % 0.7 Nucleated RBC % 0 PT with INR 13.30 H INR 1.13 H Sodium 137 Potassium 4.7 Chloride 101 Carbon Dioxide 30 Anion Gap 6 L BUN 10 Creatinine 0.9 Creat Clearance w eGFR > 60 Random Glucose 83 Calcium 9.1 Total Bilirubin 0.4 AST 23 ALT 24 Alkaline Phosphatase 98 Creatine Kinase 124 Troponin I < 0.02 Total Protein 8.3 H Albumin 3.7 Triglycerides 238 H Cholesterol 285 H Total LDL Cholesterol 175 H HDL Cholesterol 64 H Blood Type Antibody Screen 04/05/18 15:15 WBC RBC Hgb Hct MCV MCH MCHC RDW Plt Count MPV Absolute Neuts (auto) Neutrophils % Lymphocytes % Monocytes % Eosinophils % Basophils % Nucleated RBC % PT with INR INR Sodium Potassium Chloride Carbon Dioxide Anion Gap BUN Creatinine Creat Clearance w eGFR Random Glucose Calcium Total Bilirubin AST ALT Alkaline Phosphatase Creatine Kinase Troponin I Total Protein Albumin Triglycerides Cholesterol Total LDL Cholesterol HDL Cholesterol Blood Type O POSITIVE Antibody Screen Negative ASSESSMENT/PLAN: ? TIA Chest pain 2/2 to costochondritis Asthma Mixed Hyperlipidemia Dyspepsia --Place in observation for TIA workup --Echo ordered --Carotid dopplers ordered --Pt passed bedside swallow (no need for S&S consult) --Physical therapy ordered --ASA 81mg qDaily --Lipitor 40mg qDaily ordered --Neuro consulted by ED --Chest pain likely costochondritis due to reproducible etiology --EKG without abnormalities --CTA negative for acute pathology --Troponin negative x2 --Rpt one more level --Asthma not in exacerbation --Ranitidine 150mg once given FEN: Fluids: electrolyte abnormalities: None currently Nutrition: Cholesterol controlled PPX: DVT - SCDs okay due to low risk GI - Not indicated Medications need to be reconciled by pharmacy (currently closed) Dispo: Place in observation Case discussed with Dr. Kym Rodriguez, DO - IM PGY-2 Visit type - Emergency Visit Emergency Visit: Yes ED Registration Date: 04/05/18 Care time: The patient presented to the Emergency Department on the above date and was hospitalized for further evaluation of their emergent condition. - New Patient This patient is new to me today: Yes Date on this admission: 04/05/18 - Critical Care Critical Care patient: No
[2018-04-05] MEDS ORDERED: RANITIDINE HCL 150 MG TABLET (FP) PO ONE (21:15)
[2018-04-05 21:22] LABS: URINE APPEARANCE CLEAR; URINE BILIRUBIN NEGATIVE (<2.0 mg/dL); URINE COLOR STRAW; URINE GLUCOSE (UA) NEGATIVE (NEGATIVE); URINE KETONE NEGATIVE (NEGATIVE); URINE LEUK ESTERASE NEGATIVE (NEGATIVE); URINE NITRITE NEGATIVE (NEGATIVE); URINE PROTEIN NEGATIVE (NEGATIVE); URINE UROBILINOGEN NEGATIVE mg/dL (0.2-1.0)
[2018-04-05] MEDS ORDERED: RANITIDINE HCL 150 MG TABLET (FP) ONE (21:34)
[2018-04-05] MEDS ORDERED: ACETAMINOPHEN 325 MG TABLET (FP) PO PRN (22:06)
[2018-04-06] MEDS ORDERED: ACETAMINOPHEN 1000 MG/100 ML VIAL (NON FORMULARY) IVPB ONE (02:59)
[2018-04-06] MEDS ORDERED: ACETAMINOPHEN INJECTION 100 ML IVPB ONE (03:09)
[2018-04-06 08:54] LABS: ANION GAP 7 MMOL/L (8-16); BLOOD UREA NITROGEN 9 mg/dL (7-18); CHLORIDE 105 mmol/L (98-107); CO2 25 mmol/L (21-32); CREATININE 0.7 mg/dL (0.55-1.3); GLUCOSE,RANDOM 96 mg/dL (74-106); SODIUM 137 mmol/L (136-145)
--- NOTE | 2018-04-06 09:46 | EKG ---
Test Reason : Blood Pressure : / mmHG Vent. Rate : 087 BPM Atrial Rate : 087 BPM P-R Int : 154 ms QRS Dur : 092 ms QT Int : 378 ms P-R-T Axes : 052 -36 045 degrees QTc Int : 454 ms NORMAL SINUS RHYTHM LEFT AXIS DEVIATION INCOMPLETE RIGHT BUNDLE BRANCH BLOCK T WAVE ABNORMALITY, CONSIDER ANTERIOR ISCHEMIA ABNORMAL ECG WHEN COMPARED WITH ECG OF 25-MAR-2018 08:22, QT HAS LENGTHENED Confirmed by DARELL DA SILVA, JANNA ([id number]) on 04/06/2018 9:46:32 AM Referred By: Confirmed By:JANNA LOZOYA MD
--- NOTE | 2018-04-06 09:48 | EKG ---
Test Reason : Blood Pressure : / mmHG Vent. Rate : 075 BPM Atrial Rate : 075 BPM P-R Int : 164 ms QRS Dur : 092 ms QT Int : 402 ms P-R-T Axes : 045 -25 024 degrees QTc Int : 448 ms POOR DATA QUALITY, INTERPRETATION MAY BE ADVERSELY AFFECTED NORMAL SINUS RHYTHM INCOMPLETE RIGHT BUNDLE BRANCH BLOCK BORDERLINE ECG WHEN COMPARED WITH ECG OF 05-APR-2018 14:37, NO SIGNIFICANT CHANGE WAS FOUND Confirmed by JANNA LOZOYA MD ([id number]) on 04/06/2018 9:47:52 AM Referred By: Confirmed By:JANNA LOZOYA MD
--- NOTE | 2018-04-06 09:58 | CONSULT ---
Consult - text type - Consultation Consultation Note: Neurology CHIEF COMPLAINT: Generalized weakness and dysarthria PCP: Dr. Flores HISTORY OF PRESENT ILLNESS: 53yo F with history of asthma who presented with generalized weakness and dysarthria after bringing her grandson to the emergency department. Also with reported decreased L facial sensation however she reports she has been feeling better. She no longer feels lightheaded and her speech has returned to her normal. Pt also endorses some substernal L-sided anterior chest pain without radiation exacerbated with deep breathing. Echo being done at bedside during my evaluation. Will order MRI to rule out CVA and patient in agreement. CT head reviewed and negative. CTA neck without vascular malformation or significant stenosis. 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 Family History: Noncontributory Allergies levothyroxine Allergy (Severe, Verified 04/05/18 14:37) Difficulty Breathing throat feels tight, sweating meperidine HCl [From Demerol] Allergy (Verified 04/05/18 14:37) --drowsiness morphine Allergy (Verified 04/05/18 14:37) --GI upset HOME MEDICATIONS: Home Medications Medication Instructions Recorded Acetaminophen [Pain Reliever] 500 mg PO TID PRN #20 tablet 03/25/18 Cyclobenzaprine HCl [Flexeril -] 10 mg PO BID PRN #14 tablet 03/25/18 Gabapentin 300 mg PO TID #90 capsule 03/25/18 Ibuprofen 400 mg PO TID PRN #20 tablet 03/25/18 Methyl Salicylate/Menthol Oint 1 applic TP BID applic 03/25/18 [Analgesic [place] -] REVIEW OF SYSTEMS CONSTITUTIONAL: Present: Generalized weakness, lightheadedness Absent: fever, chills, diaphoresis, malaise, loss of appetite, weight change HEENT: Absent: rhinorrhea, nasal congestion, throat pain, difficulty swallowing, mouth swelling, ear pain, eye pain, visual changes CARDIOVASCULAR: Present: Chest discomfort Absent: syncope, palpitations, irregular heart rate, peripheral edema RESPIRATORY: Absent: cough, shortness of breath, dyspnea with exertion, orthopnea, wheezing, stridor, hemoptysis GASTROINTESTINAL: Absent: abdominal pain, abdominal distension, nausea, vomiting, diarrhea, constipation GENITOURINARY: Absent: dysuria, frequency, urgency, hesitancy, hematuria, flank pain MUSCULOSKELETAL: Absent: myalgia, arthralgia, joint swelling, back pain, neck pain SKIN: Absent: rash, itching, pallor NEUROLOGIC: Present: Dysarthria, focal numbness Absent: headache, dizziness, unsteady gait, seizure, mental status changes, bladder or bowel incontinence PSYCHIATRIC: Absent: anxiety, depression PHYSICAL EXAMINATION Vital Signs Period Temp Pulse Resp BP Sys/Garcia Pulse Ox Last 24 Hr 98.6 F 81-95 18-18 122-164/78-96 98-100 GENERAL: NAD, Awake, alert, and fully oriented, in no acute distress. HEENT: NC/AT, EOMI, JAIR, facial symmetry at rezst, no oral mucosa lesions or posterior oropharynx exudates, MMM NECK: No JVD, no bruits auscultated, supple without structural defects LUNGS: CTA bilaterally. No wheezes, and no crackles. No accessory muscle use. on RA HEART: RRR, normal S1 and S2 without murmur ABDOMEN: Soft, NT/Nd, normoactive bowel sounds, no guarding, MUSCULOSKELETAL: No CVA tenderness. Full ROM intact in all extremities EXTREMITIES: 2+ distal pulses, warm, well-perfused. No peripheral edema NEUROLOGICAL: EOMI, JAIR, no gaze palsy, Sensation of L CN V2-V3 distrubation dulled compared to R. CN II-IV intact. CN -XII intact. Sensation dulled on 5th digit of L hand compared to R. Strength 5/5 in all upper and lower extremity carney with limitations in R shoulder shrug due to previous injury. Babinski downgoing b/l. Reflexes 2/4 (biceps, triceps, patellar) PSYCHIATRIC: Cooperative. Good eye contact. Appropriate mood and affect. SKIN: Warm, dry, no rashes or lesions noted Laboratory Results - last 24 hr 04/05/18 04/05/18 04/05/18 15:10 15:15 15:15 WBC 8.8 RBC 4.43 Hgb 13.5 Hct 39.6 MCV 89.4 MCH 30.5 MCHC 34.2 RDW 14.6 Plt Count 296 D MPV 8.6 Absolute Neuts (auto) 5.0 Neutrophils % 56.7 Lymphocytes % 33.3 Monocytes % 7.5 Eosinophils % 1.8 Basophils % 0.7 Nucleated RBC % 0 PT with INR 13.30 H INR 1.13 H Sodium 137 Potassium 4.7 Chloride 101 Carbon Dioxide 30 Anion Gap 6 L BUN 10 Creatinine 0.9 Creat Clearance w eGFR > 60 Random Glucose 83 Calcium 9.1 Total Bilirubin 0.4 AST 23 ALT 24 Alkaline Phosphatase 98 Creatine Kinase 124 Troponin I < 0.02 Total Protein 8.3 H Albumin 3.7 Triglycerides 238 H Cholesterol 285 H Total LDL Cholesterol 175 H HDL Cholesterol 64 H Blood Type Antibody Screen 04/05/18 15:15 WBC RBC Hgb Hct MCV MCH MCHC RDW Plt Count MPV Absolute Neuts (auto) Neutrophils % Lymphocytes % Monocytes % Eosinophils % Basophils % Nucleated RBC % PT with INR INR Sodium Potassium Chloride Carbon Dioxide Anion Gap BUN Creatinine Creat Clearance w eGFR Random Glucose Calcium Total Bilirubin AST ALT Alkaline Phosphatase Creatine Kinase Troponin I Total Protein Albumin Triglycerides Cholesterol Total LDL Cholesterol HDL Cholesterol Blood Type O POSITIVE Antibody Screen Negative ASSESSMENT/PLAN: 53yo F with history of asthma who presented with generalized weakness and dysarthria after bringing her grandson to the emergency department. Also with reported decreased L facial sensation however she reports she has been feeling better. She no longer feels lightheaded and her speech has returned to her normal. Pt also endorses some substernal L-sided anterior chest pain without radiation exacerbated with deep breathing. Echo being done at bedside during my evaluation. Will order MRI to rule out CVA and patient in agreement. CT head reviewed and negative. CTA neck without vascular malformation or significant stenosis. Continue cardiac work up. Does not take ASA at home. LDL 175, recommend statin therapy. DVT ppx. Speech/swallow eval.
[2018-04-06] MEDS: ASPIRIN 81 MG CHEWABLE TABLETS PO SCH (10:22)
--- NOTE | 2018-04-06 12:28 | ECHO ---
Name: JENNIFER PACE Exam:Adult Echocardiogram Study Date: 04/06/2018 08:39 AM Age: 53 yrs Reason For Study: TIA/CVA Height: 62 in Weight: 140 lb BSA: 1.6 m2 MMode/2D Measurements & Calculations IVSd: 1.1 cm Ao root diam: 2.2 cm LVIDd: 3.9 cm LA dimension: 3.4 cm LVIDs: 2.7 cm LVPWd: 0.83 cm EDV(Teich): 67.2 ml LAV (MOD-bp): 22.3 ml ESV(Teich): 28.2 ml Doppler Measurements & Calculations MV E max tony: 48.0 cm/sec TR max tony: 217.6 cm/sec MV A max tony: 72.8 cm/sec TR max P.9 mmHg MV E/A: 0.66 MV dec time: 0.15 sec Med Peak E' Tony: 6.7 cm/sec PI Vmax: 120.8 cm/sec Med E/e': 7.1 Lat Peak E' Tony: 9.5 cm/sec Lat E/e': 5.1 Procedure A two-dimensional transthoracic echocardiogram with color flow and Doppler was performed. Left Ventricle The left ventricular size, thickness and function are normal. The left ventricular ejection fraction is normal. E/A reversal consistent with but not diagnostic of poor LV compliance. The left ventricular w all motion is normal. Right Ventricle The right ventricle is normal in size and function. Atria Normal left and right atrial size and function. Mitral Valve There is mild mitral valve thickening. There is no mitral valve stenosis. There is mild to moderate m itral regurgitation. Tricuspid Valve There is mild tricuspid valve thickening. There is no tricuspid stenosis. There is mild tricuspid regurgitation. Right ventricular systolic pressure is normal. Aortic Valve The aortic valve is normal in structure and function. No hemodynamically significant valvular aortic stenosis. No aortic regurgitation is present. Pulmonic Valve The pulmonic valve is not well visualized. There is no pulmonic valvular stenosis. Mild pulmonic valv ular regurgitation. Great Vessels The aortic root is normal size. Pericardium/Pleura There is no pericardial effusion. Interpretation Summary The left ventricular size, thickness and function are normal The left ventricular ejection fraction is normal. There is mild tricuspid regurgitation. Right ventricular systolic pressure is normal. E/A reversal consistent with but not diagnostic of poor LV compliance The left ventricular wall motion is normal. There is mild to moderate mitral regurgitation. MD Kem Mcdermott 04/06/2018 12:27 PM
--- NOTE | 2018-04-06 13:08 | PN ---
Physical Exam: SUBJECTIVE: Patient seen and examined at bedside this morning. She endorses slight dysarthria, and diminished sensation in left face, upper extremity, and lower extremity. endorses history of hematochezia, evaluated in past by her eyeletter. Denies headaches, changes in vision, fevers, chills, shortness of breath, chest pain, palpitations, abdominal pain, nausea, vomiting , OBJECTIVE: Vital Signs Period Temp Pulse Resp BP Sys/Garcia Pulse Ox Last 24 Hr 98.6 F-98.6 F 75-95 18-18 117-164/78-96 98-100 GENERAL: The patient is awake, alert, and fully oriented, in no acute distress. HEAD: Normal with no signs of trauma. EYES: PERRLA, extraocular movements intact, sclera anicteric, conjunctiva clear. No ptosis. ENT: Ears normal, nares patent, oropharynx clear without exudates, moist mucous membranes. NECK: Trachea midline, full range of motion, supple. LUNGS: Breath sounds equal, clear to auscultation bilaterally, no wheezes, no crackles, no accessory muscle use. HEART: Regular rate and rhythm, S1, S2 without murmur, rub or gallop. ABDOMEN: Soft, nontender, nondistended, normoactive bowel sounds, no guarding, no rebound tenderness, no hepatosplenomegaly, no masses. EXTREMITIES: 2+ radial and dorsalsi pedis pulses b/l. warm, well-perfused, no edema. NEUROLOGICAL: Cranial nerves II through IV, and through XII grossly intact. Diminished sensation to palpation in left side face V1-V3 distribution. Diminished sensation to palpation along left upper and lower extremity. Strength 5/5 B/L upper and lower extremities. PSYCH: Normal mood, normal affect appropriate upon my encounter today. SKIN: Warm, dry. Laboratory Results - last 24 hr 04/05/18 04/05/18 04/05/18 15:10 15:15 15:15 WBC 8.8 RBC 4.43 Hgb 13.5 Hct 39.6 MCV 89.4 MCH 30.5 MCHC 34.2 RDW 14.6 Plt Count 296 D MPV 8.6 Absolute Neuts (auto) 5.0 Neutrophils % 56.7 Lymphocytes % 33.3 Monocytes % 7.5 Eosinophils % 1.8 Basophils % 0.7 Nucleated RBC % 0 PT with INR 13.30 H INR 1.13 H Sodium 137 Potassium 4.7 Chloride 101 Carbon Dioxide 30 Anion Gap 6 L BUN 10 Creatinine 0.9 Creat Clearance w eGFR > 60 Random Glucose 83 Hemoglobin A1c % Calcium 9.1 Total Bilirubin 0.4 AST 23 ALT 24 Alkaline Phosphatase 98 Creatine Kinase 124 Troponin I < 0.02 Total Protein 8.3 H Albumin 3.7 Triglycerides 238 H Cholesterol 285 H Total LDL Cholesterol 175 H HDL Cholesterol 64 H Urine Color Urine Appearance Urine pH Ur Specific [place] Urine Protein Urine Glucose (UA) Urine Ketones Urine Blood Urine Nitrite Urine Bilirubin Urine Urobilinogen Ur Leukocyte Esterase Blood Type Antibody Screen 04/05/18 04/05/18 04/05/18 15:15 20:58 21:08 WBC RBC Hgb Hct MCV MCH MCHC RDW Plt Count MPV Absolute Neuts (auto) Neutrophils % Lymphocytes % Monocytes % Eosinophils % Basophils % Nucleated RBC % PT with INR INR Sodium Potassium Chloride Carbon Dioxide Anion Gap BUN Creatinine Creat Clearance w eGFR Random Glucose Hemoglobin A1c % Calcium Total Bilirubin AST ALT Alkaline Phosphatase Creatine Kinase Troponin I Total Protein Albumin Triglycerides Cholesterol Total LDL Cholesterol HDL Cholesterol Urine Color Straw Urine Appearance Clear Urine pH 7.0 D Ur Specific [place] 1.058 H Urine Protein Negative Urine Glucose (UA) Negative Urine Ketones Negative Urine Blood Negative Urine Nitrite Negative Urine Bilirubin Negative Urine Urobilinogen Negative Ur Leukocyte Esterase Negative Blood Type O POSITIVE O POSITIVE Antibody Screen Negative 04/06/18 04/06/18 04/06/18 03:34 07:40 07:40 WBC RBC Hgb Hct MCV MCH MCHC RDW Plt Count MPV Absolute Neuts (auto) Neutrophils % Lymphocytes % Monocytes % Eosinophils % Basophils % Nucleated RBC % PT with INR INR Sodium 137 Potassium 4.0 Chloride 105 Carbon Dioxide 25 Anion Gap 7 L BUN 9 Creatinine 0.7 Creat Clearance w eGFR > 60 Random Glucose 96 Hemoglobin A1c % 6.1 Calcium 9.0 Total Bilirubin AST ALT Alkaline Phosphatase Creatine Kinase Troponin I < 0.02 Total Protein Albumin Triglycerides Cholesterol Total LDL Cholesterol HDL Cholesterol Urine Color Urine Appearance Urine pH Ur Specific [place] Urine Protein Urine Glucose (UA) Urine Ketones Urine Blood Urine Nitrite Urine Bilirubin Urine Urobilinogen Ur Leukocyte Esterase Blood Type Antibody Screen Active Medications Generic Name Dose Route Start Last Admin Trade Name Freq PRN Reason Stop Dose Admin Aspirin 81 mg 04/06/18 10:00 04/06/18 10:22 Asa - PO 81 mg DAILY MELQUIADES Administration Atorvastatin Calcium 40 mg 04/06/18 22:00 Lipitor - PO HS MELQUIADES Sodium Chloride 1,000 mls @ 42 mls/hr 04/05/18 15:00 04/05/18 15:30 Normal Saline - IV 42 mls/hr ASDIR MELQUIADES Administration ASSESSMENT/PLAN: Patient is a 53 year old female with history of asthma presenting with complaint of lightheadedness, generalized weakness, and dysarthria. TIA -Dysarthria significantly improving, however persistent diminished sensation along left face, upper extremity, lower extremity. -Neurology consult (Dr. Hassan) appreciated. -NIHSS score= 2 upon my exam (mild dysarthria, mild loss sensation) -CT head negative for intracranial hemorrhage -Neck CTA shows tiny calcified plaque at bifurcation of right common carotid artery, without significant stenosis. Vertebral arteries unremarkable. Central arterial circulation unremarkable. -Carotid doppler shows: tiny plaque at right common carotid bulb without significant stenosis. Moderate soft plaque left carotid bulb without stenosis. -F/U Cardiac ECHO -F/U MRI -Asa 81 mg PO daily -Atorvastatin 40mg PO HS -Speech and swallow evaluation -PT evaluation Chest Pain -Reproducible upon palpation. Likely musculoskeletal in etiology. -EKG shows normal sinus rhythm at 75 BPM -Troponin negative at 0.02 X2 Asthma -Currently not on medication. Does not recall last use of Albuterol rescue inhaler. -Currently not in exacerbation History of GI bleeding -Last colonoscopy with Dr. Frances within the past year. Endorses discussing these complaints with Dr. Frances during prior appointments, and was told the bleeding is secondary to hemorrhoids. -Currently no active bleeding -Patient deferred rectal exam at this time -Follow Hb/ Hct closely FEN -IV normal saline at 42mL/ hour -Follow CMP -Cholesterol, fat controlled diet Prophylaxis -SCDs B/l lower extremities Disposition -Observation in telemetry Visit type - Emergency Visit Emergency Visit: Yes ED Registration Date: 04/05/18 Care time: The patient presented to the Emergency Department on the above date and was hospitalized for further evaluation of their emergent condition. - New Patient This patient is new to me today: Yes Date on this admission: 04/06/18 - Critical Care Critical Care patient: No - Discharge Referral Referred to [facility] No
--- NOTE | 2018-04-06 14:49 | PN ---
Teaching Attending Note Name of Resident: Marvin Miller ATTENDING PHYSICIAN STATEMENT I saw and evaluated the patient. I reviewed the resident's note and discussed the case with the resident. I agree with the resident's findings and plan as documented with exceptions below. SUBJECTIVE: Patient seen and examined, still reports feeling some speech disturbances and decreased sensation on the left side. Overall feels better. reports intermittent hematochezia, states recent colonoscopy with dr. Frances, was told has haemorrhoids. OBJECTIVE: Vital Signs Period Temp Pulse Resp BP Sys/Garcia Pulse Ox Last 24 Hr 81-83 -18 122-138/78-96 98-99 Intake & Output 04/03/18 04/04/18 04/05/18 04/06/18 23:59 23:59 23:59 23:59 Weight 140 lb General: sitting in bed in no acute distress Neck: soft, supple, no JVD CVS:S1s2 regular Chest: CTAB, no rales or wheezing Abdomen:soft, nT, nD Extremities: no edema Neuro: AAOX3, speech ?slightly muffled, decreased sensation left face/LUE/LLE, power 5/5, facial symmetry, EOMI, tongue midline, no pronator drift, finger nose test WNL, toes down going, cranial nerves II-XII grossly intact Home Medications Medication Instructions Recorded Acetaminophen [Pain Reliever] 500 mg PO TID PRN #20 tablet 03/25/18 Cyclobenzaprine HCl [Flexeril -] 10 mg PO BID PRN #14 tablet 03/25/18 Gabapentin 300 mg PO TID #90 capsule 03/25/18 Active Medications Aspirin (Asa -) 81 mg PO DAILY [facility] Last Admin: 04/06/18 10:22 Dose: 81 mg Atorvastatin Calcium (Lipitor -) 40 mg PO HS [facility] Sodium Chloride (Normal Saline -) 1,000 mls @ 42 mls/hr IV ASDIR MELQUIADES Last Admin: 04/05/18 15:30 Dose: 42 mls/hr Laboratory Results - last 24 hr 04/05/18 04/05/18 04/05/18 15:10 15:15 15:15 WBC 8.8 RBC 4.43 Hgb 13.5 Hct 39.6 MCV 89.4 MCH 30.5 MCHC 34.2 RDW 14.6 Plt Count 296 D MPV 8.6 Absolute Neuts (auto) 5.0 Neutrophils % 56.7 Lymphocytes % 33.3 Monocytes % 7.5 Eosinophils % 1.8 Basophils % 0.7 Nucleated RBC % 0 PT with INR 13.30 H INR 1.13 H Sodium 137 Potassium 4.7 Chloride 101 Carbon Dioxide 30 Anion Gap 6 L BUN 10 Creatinine 0.9 Creat Clearance w eGFR > 60 Random Glucose 83 Hemoglobin A1c % Calcium 9.1 Total Bilirubin 0.4 AST 23 ALT 24 Alkaline Phosphatase 98 Creatine Kinase 124 Troponin I < 0.02 Total Protein 8.3 H Albumin 3.7 Triglycerides 238 H Cholesterol 285 H Total LDL Cholesterol 175 H HDL Cholesterol 64 H Urine Color Urine Appearance Urine pH Ur Specific [place] Urine Protein Urine Glucose (UA) Urine Ketones Urine Blood Urine Nitrite Urine Bilirubin Urine Urobilinogen Ur Leukocyte Esterase Blood Type Antibody Screen 04/05/18 04/05/18 04/05/18 15:15 20:58 21:08 WBC RBC Hgb Hct MCV MCH MCHC RDW Plt Count MPV Absolute Neuts (auto) Neutrophils % Lymphocytes % Monocytes % Eosinophils % Basophils % Nucleated RBC % PT with INR INR Sodium Potassium Chloride Carbon Dioxide Anion Gap BUN Creatinine Creat Clearance w eGFR Random Glucose Hemoglobin A1c % Calcium Total Bilirubin AST ALT Alkaline Phosphatase Creatine Kinase Troponin I Total Protein Albumin Triglycerides Cholesterol Total LDL Cholesterol HDL Cholesterol Urine Color Straw Urine Appearance Clear Urine pH 7.0 D Ur Specific [place] 1.058 H Urine Protein Negative Urine Glucose (UA) Negative Urine Ketones Negative Urine Blood Negative Urine Nitrite Negative Urine Bilirubin Negative Urine Urobilinogen Negative Ur Leukocyte Esterase Negative Blood Type O POSITIVE O POSITIVE Antibody Screen Negative 04/06/18 04/06/18 04/06/18 03:34 07:40 07:40 WBC RBC Hgb Hct MCV MCH MCHC RDW Plt Count MPV Absolute Neuts (auto) Neutrophils % Lymphocytes % Monocytes % Eosinophils % Basophils % Nucleated RBC % PT with INR INR Sodium 137 Potassium 4.0 Chloride 105 Carbon Dioxide 25 Anion Gap 7 L BUN 9 Creatinine 0.7 Creat Clearance w eGFR > 60 Random Glucose 96 Hemoglobin A1c % 6.1 Calcium 9.0 Total Bilirubin AST ALT Alkaline Phosphatase Creatine Kinase Troponin I < 0.02 Total Protein Albumin Triglycerides Cholesterol Total LDL Cholesterol HDL Cholesterol Urine Color Urine Appearance Urine pH Ur Specific [place] Urine Protein Urine Glucose (UA) Urine Ketones Urine Blood Urine Nitrite Urine Bilirubin Urine Urobilinogen Ur Leukocyte Esterase Blood Type Antibody Screen 2d echo/carotid duplex/Neck CTA/CT head results reviewed EKG NSR, incomplete RBBB ASSESSMENT AND PLAN: 53 yof with PMhx of hypothyroidism (not on meds, TSH on recent admit WNL), asthma, cervical radiculopathy, sciatica, rotator cuff tear admitted with weakness/dizziness, dysarthria and decreased left sensations on left side -Weakness/dizziness/dysarthria/decreased sensations left side, r/o TIA vs CVA -Hypothyroidism -Cervical radiculopathy -Asthma. -?Hematochezia Plan: Neurology input noted. Symptoms persistent. Follow up MRI brain. 2D echo/Carotid duplex/Neck CTA/CT head results noted. No on ASA at home. Start, monitor for bleed Start statin. No evidence of bleed inhouse, h/h stable, recent reported colonscopy, monitor for now. Speech/swallow eval. PT eval Dispo d/c in in 24 hours pending neurology w/u if no concerns.
[2018-04-06] MEDS ORDERED: ACETAMINOPHEN 325 MG TABLET (FP) PO PRN (18:08)
[2018-04-06] MEDS: SODIUM CHLORIDE 1,000 ML IV SCH (18:30)
[2018-04-06] MEDS ORDERED: ATORVASTATIN CA 40 MG TABLET (FP) PO SCH (22:00)
[2018-04-07 06:43] LABS: HEMATOCRIT 37.7 % (32.4-45.2); MCH 30.9 pg (25.7-33.7); MCHC 34.4 g/dl (32.0-36.0); MEAN CELL VOLUME 89.8 fl (80-96); MEAN PLT VOLUME 8.8 fl (7.5-11.1); PLATELET COUNT 266 K/MM3 (134-434); RBC 4.19 M/mm3 (3.60-5.2); RDW 14.3 % (11.6-15.6); WHITE BLOOD COUNT 9.4 K/mm3 (4.0-10.0)
[2018-04-07 07:17] LABS: ALBUMIN 3.6 g/dl (3.4-5.0); ALK PHOS 92 U/L (45-117); ANION GAP 5 MMOL/L (8-16); BILIRUBIN,TOTAL 0.3 mg/dL (0.2-1); BLOOD UREA NITROGEN 7 mg/dL (7-18); CALCIUM 8.7 mg/dL (8.5-10.1); CHLORIDE 106 mmol/L (98-107); CO2 27 mmol/L (21-32); CREATININE 0.7 mg/dL (0.55-1.3); GLUCOSE,RANDOM 82 mg/dL (74-106); MAGNESIUM 2.1 mg/dL (1.8-2.4); PHOSPHOROUS 3.3 mg/dL (2.5-4.9); POTASSIUM 4.1 mmol/L (3.5-5.1); SGOT/AST 15 U/L (15-37); SGPT/ALT 18 U/L (13-61); SODIUM 138 mmol/L (136-145); TOT PROT 7.4 g/dl (6.4-8.2)
--- NOTE | 2018-04-07 07:47 | PN ---
Teaching Attending Note Name of Resident: Marvin Miller ATTENDING PHYSICIAN STATEMENT I saw and evaluated the patient. I reviewed the resident's note and discussed the case with the resident. I agree with the resident's findings and plan as documented with exceptions below. SUBJECTIVE: Patient seen and examined. feels better, no complaints. OBJECTIVE: Vital Signs Period Temp Pulse Resp BP Sys/Garcia Pulse Ox Last 24 Hr 97.9 F-100.1 F 75-101 16-20 109-138/69-82 98-100 Intake & Output 04/04/18 04/05/18 04/06/18 04/07/18 23:59 23:59 23:59 23:59 Intake Total 942 432 Balance 942 432 Weight 140 lb 140 lb 3.2 oz General; sitting in bed in no acute distress Neuro: improved exam, variable left sided sensory exam. power 5/5 Active Medications Acetaminophen (Tylenol -) 650 mg PO Q6H PRN PRN Reason: FEVER Last Admin: 04/06/18 18:31 Dose: 650 mg Aspirin (Asa -) 81 mg PO DAILY MELQUIADES Last Admin: 04/06/18 10:22 Dose: 81 mg Atorvastatin Calcium (Lipitor -) 40 mg PO HS MELQUIADES Last Admin: 04/06/18 23:33 Dose: 40 mg Sodium Chloride (Normal Saline -) 1,000 mls @ 42 mls/hr IV ASDIR MELQUIADES Last Admin: 04/06/18 18:30 Dose: 42 mls/hr MRI brain results reviewed Laboratory Results - last 24 hr 04/06/18 04/06/18 04/07/18 07:40 07:40 05:30 WBC 9.4 RBC 4.19 Hgb 13.0 Hct 37.7 MCV 89.8 MCH 30.9 MCHC 34.4 RDW 14.3 Plt Count 266 MPV 8.8 Sodium 137 Potassium 4.0 Chloride 105 Carbon Dioxide 25 Anion Gap 7 L BUN 9 Creatinine 0.7 Creat Clearance w eGFR > 60 Random Glucose 96 Hemoglobin A1c % 6.1 Calcium 9.0 Phosphorus Magnesium Total Bilirubin AST ALT Alkaline Phosphatase Total Protein Albumin 04/07/18 05:30 WBC RBC Hgb Hct MCV MCH MCHC RDW Plt Count MPV Sodium 138 Potassium 4.1 Chloride 106 Carbon Dioxide 27 Anion Gap 5 L BUN 7 Creatinine 0.7 Creat Clearance w eGFR > 60 Random Glucose 82 Hemoglobin A1c % Calcium 8.7 Phosphorus 3.3 Magnesium 2.1 Total Bilirubin 0.3 AST 15 ALT 18 Alkaline Phosphatase 92 Total Protein 7.4 Albumin 3.6 ASSESSMENT AND PLAN: 53 yof with PMhx of hypothyroidism (not on meds, TSH on recent admit WNL), asthma, cervical radiculopathy, sciatica, rotator cuff tear admitted with weakness/dizziness, dysarthria and decreased left sensations on left side -Weakness/dizziness/dysarthria/decreased sensations left side, r/o TIA vs CVA -Hypothyroidism -Cervical radiculopathy -Asthma. -?Hematochezia -Pituitary/thyroid enlargement Plan: Neurology input noted. Symptoms persistent. MRI brain/2D echo/Carotid Duplex/Neck CTA/CT head results noted. ASA/statin. No evidence of bleed inhouse, h/h stable, recent reported colonscopy, monitor for now. Speech/swallow eval. Ambulating well. D/c home today after speech evaluation with outpatient follow up Needs outpatient endocrine follow up. Discussed pituitary/thyroid findings with patient in detail and need for outpatient endocrine follow up. Also statin education provided and to notify MD if new muscle aches/pains/ jaundice noted. patient and daughter relay understanding and agree to comply. d/c home today with outpatient follow up.
--- NOTE | 2018-04-07 08:55 | PN ---
Progress Note (short form) - Note Progress Note: Neurology HISTORY OF PRESENT ILLNESS: 53yo F with history of asthma who presented with generalized weakness and dysarthria after bringing her grandson to the emergency department. Also with reported decreased L facial sensation however she reports she has been feeling better. She no longer feels lightheaded and her speech has returned to her normal. Pt also endorses some substernal L-sided anterior chest pain without radiation exacerbated with deep breathing. Echo being done at bedside during my evaluation. Will order MRI to rule out CVA and patient in agreement. CT head reviewed and negative. CTA neck without vascular malformation or significant stenosis. MRI brain reviewed and no acute changes noted. Discussed with hospitalist and plan is for discharge. Patient reassured regarding result and outpatient follow up discussed. She reports being at baseline but does get sporadic symptoms. Neurologically without deficits. Allergies levothyroxine Allergy (Severe, Verified 04/05/18 14:37) Difficulty Breathing throat feels tight, sweating meperidine HCl [From Demerol] Allergy (Verified 04/05/18 14:37) --drowsiness morphine Allergy (Verified 04/05/18 14:37) --GI upset Active Medications Acetaminophen (Tylenol -) 650 mg PO Q6H PRN PRN Reason: FEVER Last Admin: 04/06/18 18:31 Dose: 650 mg Aspirin (Asa -) 81 mg PO DAILY MELQUIADES Last Admin: 04/06/18 10:22 Dose: 81 mg Atorvastatin Calcium (Lipitor -) 40 mg PO HS MELQUIADES Last Admin: 04/06/18 23:33 Dose: 40 mg PHYSICAL EXAMINATION Vital Signs Period Temp Pulse Resp BP Sys/Garcia Pulse Ox Last 24 Hr 97.9 F-100.1 F 75-101 16-20 109-138/69-82 98-100 GENERAL: NAD, Awake, alert, and fully oriented, in no acute distress. HEENT: NC/AT, EOMI, JAIR, facial symmetry at rezst, no oral mucosa lesions or posterior oropharynx exudates, MMM NECK: No JVD, no bruits auscultated, supple without structural defects LUNGS: CTA bilaterally. No wheezes, and no crackles. No accessory muscle use. on RA HEART: RRR, normal S1 and S2 without murmur ABDOMEN: Soft, NT/Nd, normoactive bowel sounds, no guarding, MUSCULOSKELETAL: No CVA tenderness. Full ROM intact in all extremities EXTREMITIES: 2+ distal pulses, warm, well-perfused. No peripheral edema NEUROLOGICAL: EOMI, JAIR, no gaze palsy, Sensation of L CN V2-V3 distrubation dulled compared to R. CN II-IV intact. CN -XII intact. Sensation dulled on 5th digit of L hand compared to R. Strength 5/5 in all upper and lower extremity carney with limitations in R shoulder shrug due to previous injury. Babinski downgoing b/l. Reflexes 2/4 (biceps, triceps, patellar) PSYCHIATRIC: Cooperative. Good eye contact. Appropriate mood and affect. SKIN: Warm, dry, no rashes or lesions noted CBCD WBC 9.4 K/mm3 (4.0-10.0) 04/07/18 05:30 RBC 4.19 M/mm3 (3.60-5.2) 04/07/18 05:30 Hgb 13.0 GM/dL (10.7-15.3) 04/07/18 05:30 Hct 37.7 % (32.4-45.2) 04/07/18 05:30 MCV 89.8 fl (80-96) 04/07/18 05:30 MCHC 34.4 g/dl (32.0-36.0) 04/07/18 05:30 RDW 14.3 % (11.6-15.6) 04/07/18 05:30 Plt Count 266 K/MM3 (134-434) 04/07/18 05:30 MPV 8.8 fl (7.5-11.1) 04/07/18 05:30 CMP Sodium 138 mmol/L (136-145) 04/07/18 05:30 Potassium 4.1 mmol/L (3.5-5.1) 04/07/18 05:30 Chloride 106 mmol/L (98-107) 04/07/18 05:30 Carbon Dioxide 27 mmol/L (21-32) 04/07/18 05:30 Anion Gap 5 MMOL/L (8-16) L 04/07/18 05:30 BUN 7 mg/dL (7-18) 04/07/18 05:30 Creatinine 0.7 mg/dL (0.55-1.3) 04/07/18 05:30 Creat Clearance w eGFR > 60 (>60) 04/07/18 05:30 Random Glucose 82 mg/dL (74-106) 04/07/18 05:30 Calcium 8.7 mg/dL (8.5-10.1) 04/07/18 05:30 Total Bilirubin 0.3 mg/dL (0.2-1) 04/07/18 05:30 AST 15 U/L (15-37) 04/07/18 05:30 ALT 18 U/L (13-61) 04/07/18 05:30 Alkaline Phosphatase 92 U/L (45-117) 04/07/18 05:30 Total Protein 7.4 g/dl (6.4-8.2) 04/07/18 05:30 Albumin 3.6 g/dl (3.4-5.0) 04/07/18 05:30 CARDIAC ENZYMES Creatine Kinase 124 IU/L (26-192) 04/05/18 15:15 Troponin I < 0.02 ng/ml (0.00-0.05) 04/06/18 03:34 ASSESSMENT/PLAN: 53yo F with history of asthma who presented with generalized weakness and dysarthria after bringing her grandson to the emergency department. Also with reported decreased L facial sensation however she reports she has been feeling better. She no longer feels lightheaded and her speech has returned to her normal. Pt also endorses some substernal L-sided anterior chest pain without radiation exacerbated with deep breathing. Echo being done at bedside during my evaluation. Will order MRI to rule out CVA and patient in agreement. CT head reviewed and negative. CTA neck without vascular malformation or significant stenosis. MRI brain without acute changes. Carotid doppler reviewed and without hemodynamically significant stenosis. Continue cardiac work up. Does not take ASA at home. LDL 175, recommend statin therapy. Medication compliance to both medications discussed in detail. Discussed with hospitalist and plan is for discharge.
[2018-04-07] MEDS: ASPIRIN 81 MG CHEWABLE TABLETS PO SCH (09:41)
--- NOTE | 2018-04-07 11:03 | DS ---
Physical Exam: SUBJECTIVE: Patient seen and examined at bedside this morning. Admits improvement of her speech, and left sided weakness. Denies headaches, changes in vision, fevers, chills, shortness of breath, chest pain, palpitations, abdominal pain, nausea, vomiting. OBJECTIVE: Vital Signs Period Temp Pulse Resp BP Sys/Garcia Pulse Ox Last 24 Hr 97.9 F-100.1 F 75-101 16-20 109-138/69-82 98-100 PHYSICAL EXAM GENERAL: The patient is awake, alert, and fully oriented, in no acute distress. HEAD: Normal with no signs of trauma. EYES: PERRLA, extraocular movements intact, sclera anicteric, conjunctiva clear. No ptosis. ENT: Ears normal, nares patent, oropharynx clear without exudates, moist mucous membranes. NECK: Trachea midline, full range of motion, supple. LUNGS: Breath sounds equal, clear to auscultation bilaterally, no wheezes, no crackles, no accessory muscle use. HEART: Regular rate and rhythm, S1, S2 without murmur, rub or gallop. ABDOMEN: Soft, nontender, nondistended, normoactive bowel sounds, no guarding, no rebound tenderness, no hepatosplenomegaly, no masses. EXTREMITIES: 2+ radial and dorsalsi pedis pulses b/l. warm, well-perfused, no edema. NEUROLOGICAL: Cranial nerves II through IV, and through XII grossly intact. Diminished sensation to palpation in left side face V1-V3 distribution. Diminished sensation to palpation along left upper and lower extremity. Strength 5/5 B/L upper and lower extremities. PSYCH: Normal mood, normal affect appropriate upon my encounter today. SKIN: Warm, dry. LABS Laboratory Results - last 24 hr 04/07/18 04/07/18 05:30 05:30 WBC 9.4 RBC 4.19 Hgb 13.0 Hct 37.7 MCV 89.8 MCH 30.9 MCHC 34.4 RDW 14.3 Plt Count 266 MPV 8.8 Sodium 138 Potassium 4.1 Chloride 106 Carbon Dioxide 27 Anion Gap 5 L BUN 7 Creatinine 0.7 Creat Clearance w eGFR > 60 Random Glucose 82 Calcium 8.7 Phosphorus 3.3 Magnesium 2.1 Total Bilirubin 0.3 AST 15 ALT 18 Alkaline Phosphatase 92 Total Protein 7.4 Albumin 3.6 HOSPITAL COURSE: Date of Admission:04/05/18 Date of Discharge: 04/07/18 Patient is a 53 year old female with history of asthma presenting with complaint of lightheadedness, generalized weakness, and dysarthria. Upon admission, NIHSS = 1-2. CT head negative for intracranial hemorrhage, however noted thyroid enlargement. Neck CTA showed tiny calcified plaque at bifurcation of right common carotid artery, without significant stenosis. Vertebral arteries , and central arterial circulation unremarkable. Carotid doppler showed tiny plaque at right common carotid bulb without significant stenosis, and moderate soft plaque left carotid bulb without stenosis. Cardiac ECHO showed LV size, thickness, function, and thickness normal. RV function normal. MRI brain showed no acute infarct, however noted minimal early enlargemen of anterior pituitary. Recommended follow up MRI, and Prolactin labs to be discussed with primary care physician, and neurologist. She presented with anterior chest pain, that was reproducible with palpation. EKG showed normal sinus rhythm at 75 BPM, troponins were negative. She also expressed concern with history of prior lower GI bleeding, however endorses colonoscopy last year with GI Dr. Frances, and noted that bleeding secondary to hemorrhoids. No acute bleeding, and Hb/ Hct remained stable during hospitalization. Discussed to continue regular follow up with GI as outpatient. Patient was evaluated by neurology who cleared the patient for discharge. Began Aspirin, and Atorvastatin and discharged with the medications. She was evaluated by speech pathologist, who recommended outpatient modified barrium swallow if swallowing symptoms worsen. Discussed with patient to follow up with primary care physician. Patient discharged to follow up primary care physician, neurologist, wiring technician, and door repairer bus. Provided prescription for rolling walker, to aid in safe ambulation, per physical therapy recommendations. Minutes to complete discharge: 35 Discharge Summary Reason For Visit: TRANSIENT ISCHEMIC ATTACK Current Active Problems TIA (transient ischemic attack) (Acute) Condition: Stable - Instructions Diet, Activity, Other Instructions: Hospital course: You were seen in the hospital for weakness, left sided sensation changes, and difficulty speaking. Your CT scan of the head showed no bleeding within the brain Your CT angiography shows no significant stenosis of your blood vessels. Your brain MRI showed showed minimal enlargement of your pituitary. You will follow up with your primary care physician, and the neurologist. You were also noted with enlarged thyroid gland and will need to follow up with an door repairer bus outpatient. You were evaluated by the neurologist, and speech pathologist who has cleared you for discharge. Post-discharge instructions: You will follow up with your primary care physician within two- three days after discharge You will follow up with neurologist Dr. Hassan within one week after discharge. Continue follow up with your wiring technician Dr. Frances. Discuss with your primary doctor for outpatient endocrinology follow up. YOu can follow up with Dr. Manuel (Contact information provided) It is very important that you have your thyroid/pituitary gland checked with blood work and follow up MRI brain in 3 months. Please discuss with your doctor in this regard. If you continue having difficulty swallowing, you may need Modified Barrium Swallow. Discuss with your primary care physician. Continue taking your home medications as directed. You will begin taking Aspirin 81mg daily You will begin taking cholesterol medication Atorvastatin 40mg in the evenings. Please note this medication may cause muscle pains and weakness. You will need blood work in one week to be done with primary care provider appointment: Liver Function testing, Lipid Panel. Your primary care physician will be able to draw these blood tests. In addition, you will discuss drawing Prolactin labs, and further imaging studies to evaluate your pituitary gland with your primary care doctor, and neurologist. Please return to the nearest Emergency Department if you experience headaches, changes in vision, dizziniess, lightheadedness, falls, loss of consciousness, chest pain, palpitations, worsening symptoms or any new concerns. Referrals: Scott Frances MD [Staff Physician] - Eliud Hassan MD [Staff Physician] - Elizabeth Donaldson MD [Staff Physician] - 04/08/18 Mohan Manuel MD [Staff Physician] - Disposition: HOME - Home Medications Comprehensive Discharge Medication List: Ambulatory Orders Cyclobenzaprine HCl [Flexeril -] 10 mg PO BID PRN #14 tablet 03/25/18 Gabapentin 300 mg PO TID #90 capsule 03/25/18 Aspirin [ASA -] 81 mg PO DAILY 30 Days #30 tab.chew 04/07/18 Atorvastatin Ca [Lipitor] 40 mg PO HS 30 Days #30 tablet 04/07/18 This patient is new to me today: No Emergency Visit: Yes ED Registration Date: 04/05/18 Care time: The patient presented to the Emergency Department on the above date and was hospitalized for further evaluation of their emergent condition. Critical Care patient: No - Discharge Referral Referred to [facility] Med P.C.: No
--- NOTE | 2018-04-07 12:05 | CONSULT ---
Admitting History and Physical - Primary Care Physician PCP: Mitra Brady - Admission History of Present Illness: EMR reviewed and pt examined. 53 yof with PMhx of hypothyroidism ,, asthma, cervical radiculopathy, sciatica, rotator cuff tear admitted with weakness/dizziness, dysarthria and decreased left sensations on left side -Weakness/dizziness/dysarthria/decreased sensations left side, r/o TIA vs CVA -Hypothyroidism -Cervical radiculopathy -Asthma. -?Hematochezia -Pituitary/thyroid enlargement Neurology input noted. MRI brain/2D echo/Carotid Duplex/Neck CTA/CT head results noted. Noted pituitary/thyroid findings Laboratory Tests 04/06/18 07:40 Hemoglobin A1c % 6.1 History Source: Patient, Family Member Limitations to Obtaining History: No Limitations - Past Medical History PANEL WIRER: Yes: Migraine ...LMP: 10/28/17 Musculoskeletal: Yes: Other (right rotator cuff tear) - Past Surgical History Past Surgical History: Yes: None - Smoking History Smoking history: Never smoked Have you smoked in the past 12 months: No If you are a former smoker, when did you quit?: 25 yrs ago - Alcohol/Substance Use Hx Alcohol Use: No History - Admission Reason For Visit: TRANSIENT ISCHEMIC ATTACK - Diagnostics X-ray: Report Reviewed CT Scan: Report Reviewed MRI: Report Reviewed Other: Report Reviewed (carotid u/s) - General Mental Status: Alert and Oriented, Awake and Alert, Able to Follow Commands Attention: Intact Ability to Follow Directions: Excellent Head/Neck Control: WFL - Hearing Hearing: Normal Speech Evaluation - Communication Primary Language: INDONESIAN Communication: Yes: Within Normal Limits, Dysarthria (slight? Mild left facial? c/o persistent deminished sensation on left upper lip.) - Speech Production Able to Make Needs Known: Yes: WNL Intelligibility: Yes: Mildly Impaired (slight) - Speech Characteristics Voice Loudness: Normal Voice Pitch: Yes: Normal Voice Phonatory-based Quality: Yes: Normal Speech Clarity: < 100% Nasal Resonance: Normal Articulation: Yes: Imprecise (slight?) Rate of Speech: Intact - Language/Auditory Comprehension Follows: Yes: 2 Stage Simple Commands - Language/Verbal Expression Able to Respond to Simple Queries: Yes: WNL Able to Communicate Wants and Needs: Yes: WNL Functional Communication Status: Yes: WNL - Memory/Perception correction Memory: Yes: WNL Short Term Memory: Yes: WNL - Swallow Evaluation/Bedside Assessment Current Nutritional Intake: Regular, Thin Liquids Oral Secretions: Yes: WFL Dentition: Yes: Adequate, Missing Teeth Facial Symmetry at Rest: Facial Droop Left (slight) Facial Symmetry on Retraction: Symmetrical Facial Movement: Controlled Sensation: Reduced Left (per pt) Against Resistance Opening: Normal Against Resistance Closing: Normal Pucker Lips: Normal Smile: Normal Lingual Movement: Normal, Symmetric Lingual Speed of Movement: Normal Lingual Movement Strgth Against Opposition: Normal Lingual Movement Characteristics: Normal (No evidence of fasciculations at this time.) Velopharyngeal Movement: Normal Laryngeal Elevation: WFL Laryngeal Movement: Able to Palpate Rate of Intake: WFL Bolus Size: WFL Labial Seal: WFL Chewing: WFL Oral Prep Time: WFL A-P Transit: WFL Pocketing: None Timing of Swallow: WFL Coughing/Throat Clear: No Change in Voice: No Recommendations - Speech Evaluation, Impression/Plan Impression: EMR reviewed and pt examined. Speech with slight articulatory imprecision and slight left facial weakness at rest, with reported reduced sensation. Reports requiring some effort to swallow. MRI /neurology consult noted. - Dysphagia Impressions/Plan Dysphagia Impressions: Minimal Impairment (pt reports dysphagia. Overtly tolerating diet. (-) 3 oz water test. Drinks a lot of coffee/soda which could result on LPR/GERD with symptoms of dysphagia. Swallow is brisk. Aspiration not suspected.) *Silent aspiration: cannot be R/O at bedside Recommendations: Modified Barium Swallow (as out pt if symptoms persist or worsen.), Other (EMG in future if symptoms persist?) - Recommendations Diet Consistency: Regular Liquids: Thin Liquids
--- NOTE | 2018-04-07 12:07 | DS ---
Physical Exam: SUBJECTIVE: Patient seen and examined OBJECTIVE: Vital Signs Period Temp Pulse Resp BP Sys/Garcia Pulse Ox Last 24 Hr 97.9 F-100.1 F 75-101 16-20 109-138/69-82 98-100 PHYSICAL EXAM GENERAL: The patient is awake, alert, and fully oriented, in no acute distress. HEAD: Normal with no signs of trauma. EYES: PERRL, extraocular movements intact, sclera anicteric, conjunctiva clear. ENT: Ears normal, nares patent, oropharynx clear without exudates, moist mucous membranes. NECK: Trachea midline, full range of motion, supple. LUNGS: Breath sounds equal, clear to auscultation bilaterally, no wheezes, no crackles, no accessory muscle use. HEART: Regular rate and rhythm, S1, S2 without murmur, rub or gallop. ABDOMEN: Soft, nontender, nondistended, normoactive bowel sounds, no guarding, no rebound, no hepatosplenomegaly, no masses. EXTREMITIES: 2+ pulses, warm, well-perfused, no edema. NEUROLOGICAL: Cranial nerves II through XII grossly intact. Normal speech, gait not observed. PSYCH: Normal mood, normal affect. SKIN: Warm, dry, normal turgor, no rashes or lesions noted. LABS Laboratory Results - last 24 hr 04/07/18 04/07/18 05:30 05:30 WBC 9.4 RBC 4.19 Hgb 13.0 Hct 37.7 MCV 89.8 MCH 30.9 MCHC 34.4 RDW 14.3 Plt Count 266 MPV 8.8 Sodium 138 Potassium 4.1 Chloride 106 Carbon Dioxide 27 Anion Gap 5 L BUN 7 Creatinine 0.7 Creat Clearance w eGFR > 60 Random Glucose 82 Calcium 8.7 Phosphorus 3.3 Magnesium 2.1 Total Bilirubin 0.3 AST 15 ALT 18 Alkaline Phosphatase 92 Total Protein 7.4 Albumin 3.6 HOSPITAL COURSE: Date of Admission:04/05/18 Date of Discharge: 04/07/18 Discharge Summary Reason For Visit: TRANSIENT ISCHEMIC ATTACK Current Active Problems TIA (transient ischemic attack) (Acute) Condition: Stable - Instructions Diet, Activity, Other Instructions: Hospital course: You were seen in the hospital for weakness, left sided sensation changes, and difficulty speaking. Your CT scan of the head showed no bleeding within the brain Your CT angiography shows no significant stenosis of your blood vessels. Your brain MRI showed showed minimal enlargement of your pituitary. You will follow up with your primary care physician, and the neurologist. You were also noted with enlarged thyroid gland and will need to follow up with an bisque kiln placer outpatient. You were evaluated by the neurologist, and speech pathologist who has cleared you for discharge. Post-discharge instructions: You will follow up with your primary care physician within two- three days after discharge You will follow up with neurologist Dr. Hassan within one week after discharge. Continue follow up with your geographic information systems manager Dr. Frances. Discuss with your primary doctor for outpatient endocrinology follow up. YOu can follow up with Dr. Manuel (Contact information provided) It is very important that you have your thyroid/pituitary gland checked with blood work and follow up MRI brain in 3 months. Please discuss with your doctor in this regard. Continue taking your home medications as directed. You will begin taking Aspirin 81mg daily You will begin taking cholesterol medication Atorvastatin 40mg in the evenings. Please note this medication may cause muscle pains and weakness. You will need blood work in one week to be done with primary care provider appointment: Liver Function testing, Lipid Panel. Your primary care physician will be able to draw these blood tests. In addition, you will discuss drawing Prolactin labs, and further imaging studies to evaluate your pituitary gland with your primary care doctor, and neurologist. Please return to the nearest Emergency Department if you experience headaches, changes in vision, dizziniess, lightheadedness, falls, loss of consciousness, chest pain, palpitations, worsening symptoms or any new concerns. Referrals: Scott Frances MD [Staff Physician] - Eliud Hassan MD [Staff Physician] - Elizabeth Donaldson MD [Staff Physician] - 04/08/18 Mohan Manuel MD [Staff Physician] - Disposition: HOME - Home Medications Comprehensive Discharge Medication List: Ambulatory Orders Cyclobenzaprine HCl [Flexeril -] 10 mg PO BID PRN #14 tablet 03/25/18 Gabapentin 300 mg PO TID #90 capsule 03/25/18 Aspirin [ASA -] 81 mg PO DAILY 30 Days #30 tab.chew 04/07/18 Atorvastatin Ca [Lipitor] 40 mg PO HS 30 Days #30 tablet 04/07/18 - Discharge Referral Referred to [facility] Med P.C.: No
[2018-04-07 13:20] VITALS: BP 111/71; PULSE 84; TEMP 98
== END 2018-04-07 14:10 | disposition home or self-care (01) ==
LOC: JER 14:27 → JERBED 20:10 → J4W 04-06 23:05
PROVIDERS: ADMIT Internal Medicine; ATTEND Hospitalist
PROC: 3E033NZ Introduction of Analgesics, Hypnotics, Sedatives into Peripheral Vein, Percutaneous Approach (ICD-10-PCS; principal; 2018-04-05)
DX: G45.9 Transient cerebral ischemic attack, unspecified (principal); R07.89 Other chest pain; R53.1 Weakness; R42 Dizziness and giddiness; R47.1 Dysarthria and anarthria; E03.9 Hypothyroidism, unspecified; M54.12 Radiculopathy, cervical region; E78.5 Hyperlipidemia, unspecified; J45.909 Unspecified asthma, uncomplicated; I34.1 Nonrheumatic mitral (valve) prolapse; Z88.8 Allergy status to other drugs, medicaments and biological substances
CPT/HCPCS: 36415; 70450-TC; 70498-TC; 70551-TC; 80048; 80053; 81003; 82465; 82550; 83036; 83718; 83721; 83735; 84100; 84478; 84484; 85025; 85027; 85610; 86850; 86900; 86901; 93005; 93010; 93306-TC; 93880-TC; 97116-GP; 97162-GP; 99285-25; G0378; J0131; J7030

== ENCOUNTER 2020-03-08 13:47 | Inpatient (IN) | payer OTHER ==
[2020-03-08] MEDS ORDERED: ASPIRIN 81 MG CHEWABLE TABLETS PO ONE (15:24)
[2020-03-08] MEDS ORDERED: ASPIRIN 81 MG CHEWABLE TABLETS ONE (15:30)
[2020-03-08 15:39] LABS: BASO % 0.7 % (0-2.0); EOS % 2.2 % (0-4.5); HEMATOCRIT 39.9 % (32.4-45.2); LYMPH % 36.5 % (8-40); MCH 29.2 pg (25.7-33.7); MCHC 32.6 g/dl (32.0-36.0); MEAN CELL VOLUME 89.7 fl (80-96); MEAN PLT VOLUME 8.1 fl (7.5-11.1); MONO % 8.3 % (3.8-10.2); NEUT % 52.3 % (42.8-82.8); PLATELET COUNT 253 K/MM3 (134-434); RBC 4.45 M/mm3 (3.60-5.2); RDW 14.7 % (11.6-15.6); WHITE BLOOD COUNT 7.2 K/mm3 (4.0-10.0)
[2020-03-08 15:59] LABS: CHLORIDE 102 mmol/L (98-107); POTASSIUM 4.4 mmol/L (3.5-5.1); SODIUM 136 mmol/L (136-145)
[2020-03-08 16:01] LABS: CALCIUM 9.7 mg/dL (8.5-10.1)
[2020-03-08 16:03] LABS: ALBUMIN 4.1 g/dl (3.4-5.0); ANION GAP 5 MMOL/L (8-16); BLOOD UREA NITROGEN 10.2 mg/dL (7-18); CO2 29 mmol/L (21-32); GLUCOSE,RANDOM 85 mg/dL (74-106)
[2020-03-08 16:06] LABS: BILIRUBIN,TOTAL 0.3 mg/dL (0.2-1); CREATININE 0.7 mg/dL (0.55-1.3); SGOT/AST 22 U/L (15-37); SGPT/ALT 23 U/L (13-61); TOT PROT 8.2 g/dl (6.4-8.2)
[2020-03-08 16:07] LABS: ALK PHOS 127 U/L (45-117)
[2020-03-08] MEDS ORDERED: LIDOCAINE 5% TOPICAL PATCH ONE (17:57)
[2020-03-08] MEDS: LIDOCAINE 5% TOPICAL PATCH TP SCH (18:00)
[2020-03-08] MEDS ORDERED: ALBUTEROL SO4 HFA INHALER IH PRN (19:40)
[2020-03-08 20:20] LABS: N-TERMINAL BNP 13.3 pg/ml (5-125)
[2020-03-08] MEDS ORDERED: ATORVASTATIN CA 40 MG TABLET (FP) ONE (22:00)
[2020-03-08] MEDS: ATORVASTATIN CA 40 MG TABLET (FP) PO SCH (22:03)
[2020-03-08] MEDS ORDERED: CYCLOBENZAPRINE HCL 10 MG TABLET (FP) ONE (22:10)
[2020-03-08] MEDS: CYCLOBENZAPRINE HCL 5 MG TABLET PO SCH (22:13)
[2020-03-09 01:28] VITALS: BMI 30.5
[2020-03-09] MEDS: LEVOTHYROXINE NA 100 MCG TABLET (FP) PO SCH (06:38)
[2020-03-09] MEDS: LIDOCAINE PATCH REMOVAL MC SCH (06:38)
[2020-03-09 09:02] LABS: HEMATOCRIT 38.9 % (32.4-45.2); HEMOGLOBIN 12.7 GM/dL (10.7-15.3); MCH 29.3 pg (25.7-33.7); MCHC 32.6 g/dl (32.0-36.0); MEAN CELL VOLUME 89.7 fl (80-96); MEAN PLT VOLUME 8.2 fl (7.5-11.1); PLATELET COUNT 232 K/MM3 (134-434); RBC 4.34 M/mm3 (3.60-5.2); RDW 14.4 % (11.6-15.6); WHITE BLOOD COUNT 5.6 K/mm3 (4.0-10.0)
[2020-03-09 09:22] LABS: CHLORIDE 104 mmol/L (98-107); SODIUM 139 mmol/L (136-145)
[2020-03-09 09:24] LABS: ANION GAP 6 MMOL/L (8-16); BLOOD UREA NITROGEN 12.2 mg/dL (7-18); CO2 29 mmol/L (21-32)
[2020-03-09 09:25] LABS: GLUCOSE,RANDOM 87 mg/dL (74-106)
[2020-03-09 09:26] LABS: CALCIUM 9.4 mg/dL (8.5-10.1)
[2020-03-09 09:27] LABS: MAGNESIUM 2.2 mg/dL (1.8-2.4)
[2020-03-09 09:28] LABS: CREATININE 0.8 mg/dL (0.55-1.3); PHOSPHOROUS 4.5 mg/dL (2.5-4.9)
[2020-03-09] MEDS: ASPIRIN 81 MG CHEWABLE TABLETS PO SCH (10:06)
[2020-03-09] MEDS: ENOXAPARIN NA (PORCINE) 40 MG/0.4 ML DISP.SYRIN SQ SCH (10:07)
[2020-03-09] MEDS ORDERED: NITROGLYCERIN SUBLINGUAL 1/150 0.4 MG TAB SL PRN (10:23)
[2020-03-09] MEDS: ACETAMINOPHEN 325 MG TABLET (FP) PO PRN ×2 (12:28→21:53)
[2020-03-09] MEDS: LIDOCAINE 5% TOPICAL PATCH TP SCH (17:43)
[2020-03-09] MEDS: ATORVASTATIN CA 40 MG TABLET (FP) PO SCH (21:49)
[2020-03-09] MEDS: CYCLOBENZAPRINE HCL 5 MG TABLET PO SCH (21:49)
[2020-03-10] MEDS: LIDOCAINE PATCH REMOVAL MC SCH (06:20)
[2020-03-10] MEDS: LEVOTHYROXINE NA 100 MCG TABLET (FP) PO SCH (06:22)
[2020-03-10] MEDS: ACETAMINOPHEN 325 MG TABLET (FP) PO PRN ×2 (08:31→21:20)
[2020-03-10 08:47] LABS: HEMATOCRIT 38.6 % (32.4-45.2); HEMOGLOBIN 12.7 GM/dL (10.7-15.3); MCH 29.5 pg (25.7-33.7); MCHC 32.9 g/dl (32.0-36.0); MEAN CELL VOLUME 89.7 fl (80-96); MEAN PLT VOLUME 8.5 fl (7.5-11.1); PLATELET COUNT 227 K/MM3 (134-434); RDW 14.8 % (11.6-15.6); WHITE BLOOD COUNT 5.6 K/mm3 (4.0-10.0)
[2020-03-10 09:21] LABS: CALCIUM 9.3 mg/dL (8.5-10.1)
[2020-03-10 09:22] LABS: BLOOD UREA NITROGEN 17.8 mg/dL (7-18); MAGNESIUM 2.3 mg/dL (1.8-2.4)
[2020-03-10 09:25] LABS: CREATININE 0.8 mg/dL (0.55-1.3); PHOSPHOROUS 4.4 mg/dL (2.5-4.9)
[2020-03-10] MEDS: ASPIRIN 81 MG CHEWABLE TABLETS PO SCH (10:01)
[2020-03-10] MEDS: ENOXAPARIN NA (PORCINE) 40 MG/0.4 ML DISP.SYRIN SQ SCH (10:01)
[2020-03-10] MEDS: LIDOCAINE 5% TOPICAL PATCH TP SCH (17:21)
[2020-03-10] MEDS: CYCLOBENZAPRINE HCL 5 MG TABLET PO SCH (21:20)
[2020-03-10] MEDS: ATORVASTATIN CA 40 MG TABLET (FP) PO SCH (21:20)
[2020-03-11] MEDS: LIDOCAINE PATCH REMOVAL MC SCH (06:22)
[2020-03-11] MEDS: LEVOTHYROXINE NA 100 MCG TABLET (FP) PO SCH (06:22)
[2020-03-11] MEDS: ENOXAPARIN NA (PORCINE) 40 MG/0.4 ML DISP.SYRIN SQ SCH (13:14)
[2020-03-11] MEDS: ASPIRIN 81 MG CHEWABLE TABLETS PO SCH (13:14)
[2020-03-11 15:31] VITALS: BP 129/76; PULSE 80; TEMP 98.6
== END 2020-03-11 17:23 | disposition home or self-care (01) | DRG 351 ==
LOC: JER 13:47 → JERBED 17:09 → OBSVTOIN 17:09 → J5S 22:47
DX: M25.511 Pain in right shoulder (principal); J45.909 Unspecified asthma, uncomplicated; E78.5 Hyperlipidemia, unspecified; I44.7 Left bundle-branch block, unspecified; R07.9 Chest pain, unspecified; G89.28 Other chronic postprocedural pain; E03.9 Hypothyroidism, unspecified; F41.9 Anxiety disorder, unspecified; K21.9 Gastro-esophageal reflux disease without esophagitis
CPT/HCPCS: 36415; 71046-TC-FY; 73030-TC-RT-FY; 73200-TC-RT; 78452-TC; 80048; 80053; 80061; 82550; 83036; 83721; 83735; 83880; 84100; 84439; 84443; 84484; 85025; 85027; 85651; 86140; 93005; 93010; 93017; 93306-TC; 93971-TC; 97116-GP; 97161-GP; 99285-25; A9502; C9803; U0003

== ENCOUNTER 2020-05-08 17:42 | Emergency (ER) | payer OTHER ==
[2020-05-08 18:02] VITALS: BP 141/85; PULSE 85; TEMP 97.4; BMI 31.4
[2020-05-08] MEDS ORDERED: diazePAM 5 MG TABLET PO ONE (18:16)
[2020-05-08] MEDS ORDERED: KETOROLAC TROMETHAMINE 60 MG/2 ML VIAL IM ONE (18:16)
[2020-05-08] MEDS ORDERED: KETOROLAC TROMETHAMINE 60 MG/2 ML VIAL ONE (18:17)
[2020-05-08] MEDS ORDERED: diazePAM 5 MG TABLET ONE (18:17)
== END 2020-05-08 18:32 | disposition home or self-care (01) ==
LOC: JERFT 17:42 → JER 17:42 → JERFT 18:32
PROC: 3E0233Z Introduction of Anti-inflammatory into Muscle, Percutaneous Approach (ICD-10-PCS; principal; 2020-05-08)
DX: M43.6 Torticollis (principal)
CPT/HCPCS: 99284-25

== ENCOUNTER 2020-09-21 19:26 | Emergency (ER) | payer OTHER ==
[2020-09-21 19:36] VITALS: TEMP 98.9; BMI 32.9
[2020-09-21] MEDS ORDERED: ONDANSETRON 4 MG/2 ML VIAL IVPUSH ONE (20:17)
[2020-09-21] MEDS ORDERED: LACTATED RINGERS SOLUTION 1000 ML INFUS.BAG IV ONE (20:17)
[2020-09-21] MEDS ORDERED: ACETAMINOPHEN 1000 MG/100 ML VIAL (NON FORMULARY) IVPB ONE (20:17)
[2020-09-21] MEDS ORDERED: ACETAMINOPHEN INJECTION 100 ML IVPB ONE (20:24)
[2020-09-21] MEDS ORDERED: ONDANSETRON 4 MG/2 ML VIAL ONE (20:24)
[2020-09-21] MEDS ORDERED: KETOROLAC TROMETHAMINE 15 MG/ML VIAL IVPUSH ONE (20:43)
[2020-09-21] MEDS ORDERED: LIDOCAINE 5% TOPICAL PATCH TP ONE (20:43)
[2020-09-21 20:47] LABS: HEMATOCRIT 37.3 % (32.4-45.2); HEMOGLOBIN 12.2 GM/dL (10.7-15.3); MCH 28.2 pg (25.7-33.7); MCHC 32.6 g/dl (32.0-36.0); MEAN CELL VOLUME 86.4 fl (80-96); MEAN PLT VOLUME 8.6 fl (7.5-11.1); PLATELET COUNT 245 K/MM3 (134-434); RBC 4.32 M/mm3 (3.60-5.2); RDW 15.2 % (11.6-15.6); WHITE BLOOD COUNT 8.8 K/mm3 (4.0-10.0)
[2020-09-21] MEDS ORDERED: LIDOCAINE 5% TOPICAL PATCH ONE (20:51)
[2020-09-21] MEDS ORDERED: KETOROLAC TROMETHAMINE 15 MG/ML VIAL ONE (20:52)
[2020-09-21 21:07] LABS: INR 1.08 (0.83-1.09); PROTHROMBIN TIME (PATIENT) 13.2 SEC (9.7-13.0)
[2020-09-21 21:10] LABS: ACTIVATED PTT 28.6 SECONDS (25.2-36.5)
[2020-09-21 21:15] LABS: CHLORIDE 105 mmol/L (98-107); SODIUM 136 mmol/L (136-145)
[2020-09-21 21:17] LABS: CALCIUM 8.9 mg/dL (8.5-10.1)
[2020-09-21 21:19] LABS: ANION GAP 7 MMOL/L (8-16); BLOOD UREA NITROGEN 16.1 mg/dL (7-18); CO2 24 mmol/L (21-32); GLUCOSE,RANDOM 87 mg/dL (74-106)
[2020-09-21 21:21] LABS: CREATININE 0.8 mg/dL (0.55-1.3); SGOT/AST 26 U/L (15-37); SGPT/ALT 24 U/L (13-61)
[2020-09-21 21:22] LABS: BILIRUBIN,TOTAL 0.2 mg/dL (0.2-1)
[2020-09-21 21:23] LABS: TOT PROT 8.5 g/dl (6.4-8.2)
[2020-09-21 21:25] LABS: ALK PHOS 134 U/L (45-117)
[2020-09-21] MEDS ORDERED: diazePAM CARPU-JECT 10 MG/2 ML DISP.SYRIN IM ONE (21:37)
[2020-09-21 22:00] LABS: ANISOCYTOSIS 2+; MACROCYTOSIS 0; PLATELET ESTIMATE NORMAL; TEAR DROP CELLS 1+
[2020-09-21] MEDS ORDERED: LIDOCAINE PATCH REMOVAL MC SCH (22:00)
[2020-09-21] MEDS ORDERED: diazePAM CARPU-JECT 10 MG/2 ML DISP.SYRIN ONE (22:14)
[2020-09-21 22:18] LABS: EPI CELLS 11 /uL (0-25.1); HYALINE CASTS 1 /uL (0-3.1); URINE APPEARANCE CLEAR; URINE BACTERIA 37 /uL (0-1359); URINE BILIRUBIN NEGATIVE (NEGATIVE); URINE COLOR YELLOW; URINE GLUCOSE (UA) NEGATIVE (NEGATIVE); URINE KETONE NEGATIVE (NEGATIVE); URINE LEUK ESTERASE NEGATIVE (NEGATIVE); URINE NITRITE NEGATIVE (NEGATIVE); URINE PROTEIN NEGATIVE (NEGATIVE); URINE RBC 11 /uL (0-23.9); URINE UROBILINOGEN 0.2 mg/dL (0.2-1.0); URINE WBC 9 /uL (0-25.8)
[2020-09-21 23:35] VITALS: BP 138/89; PULSE 79
== END 2020-09-21 23:36 | disposition home or self-care (01) ==
LOC: JER 19:26
PROC: 3E0333Z Introduction of Anti-inflammatory into Peripheral Vein, Percutaneous Approach (ICD-10-PCS; principal; 2020-09-21)
PROC: 3E023NZ Introduction of Analgesics, Hypnotics, Sedatives into Muscle, Percutaneous Approach (ICD-10-PCS; 2020-09-21)
PROC: 3E0333Z Introduction of Anti-inflammatory into Peripheral Vein, Percutaneous Approach (ICD-10-PCS; 2020-09-21)
DX: M54.31 Sciatica, right side (principal); K35.80 Unspecified acute appendicitis; S39.012A Strain of muscle, fascia and tendon of lower back, initial encounter
CPT/HCPCS: 36415; 71045-TC-FY; 72131-TC; 80053; 81003; 84484; 85025; 85610; 85730; 87086; 93005; 93010; 99285-25; J0131

== ENCOUNTER 2021-01-18 13:14 | Emergency (ER) | payer OTHER ==
[2021-01-18 13:25] VITALS: BP 125/85; PULSE 88; TEMP 97.6
== END 2021-01-18 14:51 | disposition home or self-care (01) ==
LOC: JERFT 13:14
DX: L02.214 Cutaneous abscess of groin (principal)
CPT/HCPCS: 99281-25

== ENCOUNTER 2021-04-04 19:27 | Emergency (ER) | payer OTHER ==
[2021-04-04 19:41] VITALS: BP 122/88; PULSE 78; TEMP 97; BMI 34.7
[2021-04-04] MEDS ORDERED: diazePAM 5 MG TABLET PO ONE (20:36)
[2021-04-04] MEDS ORDERED: LIDOCAINE 5% TOPICAL PATCH TP ONE (20:36)
[2021-04-04] MEDS ORDERED: KETOROLAC TROMETHAMINE 30 MG/1 ML VIAL IM ONE (20:36)
[2021-04-04] MEDS ORDERED: LIDOCAINE 5% TOPICAL PATCH ONE (20:50)
[2021-04-04] MEDS ORDERED: diazePAM 5 MG TABLET ONE (20:50)
[2021-04-04] MEDS ORDERED: KETOROLAC TROMETHAMINE 30 MG/1 ML VIAL ONE (20:50)
[2021-04-04] MEDS ORDERED: LIDOCAINE PATCH REMOVAL MC ONE (22:00)
== END 2021-04-04 21:04 | disposition home or self-care (01) ==
LOC: JER 19:27
PROC: 3E0233Z Introduction of Anti-inflammatory into Muscle, Percutaneous Approach (ICD-10-PCS; principal; 2021-04-04)
DX: M54.41 Lumbago with sciatica, right side (principal)
CPT/HCPCS: 99284-25

== ENCOUNTER 2021-04-27 18:39 | Emergency (ER) | payer OTHER ==
[2021-04-27 18:55] VITALS: TEMP 98; BMI 34.7
[2021-04-27] MEDS ORDERED: KETOROLAC TROMETHAMINE 30 MG/1 ML VIAL IVPUSH ONE (19:41)
[2021-04-27] MEDS ORDERED: KETOROLAC TROMETHAMINE 30 MG/1 ML VIAL ONE (20:00)
[2021-04-27 20:03] LABS: BASO % 0.5 % (0-2.0); EOS % 2.4 % (0-4.5); HEMATOCRIT 31.8 % (32.4-45.2); HEMOGLOBIN 10.1 GM/dL (10.7-15.3); LYMPH % 28.6 % (8-40); MCH 24.6 pg (25.7-33.7); MCHC 31.8 g/dl (32.0-36.0); MEAN CELL VOLUME 77.5 fl (80-96); MEAN PLT VOLUME 8.5 fl (7.5-11.1); MONO % 9.8 % (3.8-10.2); NEUT % 58.7 % (42.8-82.8); PLATELET COUNT 236 10^3/uL (134-434); RBC 4.11 M/mm3 (3.60-5.2); RDW 16.7 % (11.6-15.6); WHITE BLOOD COUNT 8.1 K/mm3 (4.0-10.0)
[2021-04-27 20:24] LABS: ALBUMIN 3.5 g/dl (3.4-5.0); BLOOD UREA NITROGEN 11.2 mg/dL (7-18); CALCIUM 8.7 mg/dL (8.5-10.1)
[2021-04-27 20:26] LABS: CREATININE 0.9 mg/dL (0.55-1.3)
[2021-04-27 20:27] LABS: BILIRUBIN,TOTAL 0.4 mg/dL (0.2-1); TOT PROT 7.7 g/dl (6.4-8.2)
[2021-04-27] MEDS ORDERED: ACETAMINOPHEN 500 MG TABLET (FP) PO ONE (21:15)
[2021-04-27] MEDS ORDERED: ACETAMINOPHEN 500 MG TABLET (FP) ONE (21:16)
[2021-04-27] MEDS ORDERED: LIDOCAINE PATCH REMOVAL MC SCH (22:00)
[2021-04-27] MEDS ORDERED: diazePAM 5 MG TABLET PO ONE (23:00)
[2021-04-27] MEDS ORDERED: LIDOCAINE 5% TOPICAL PATCH TP ONE (23:00)
[2021-04-27] MEDS ORDERED: diazePAM 5 MG TABLET ONE (23:24)
[2021-04-27] MEDS ORDERED: LIDOCAINE 5% TOPICAL PATCH ONE (23:25)
[2021-04-27 23:37] VITALS: BP 132/81; PULSE 82
[2021-04-28] MEDS ORDERED: ONDANSETRON 4 MG/2 ML VIAL IVPUSH ONE (00:21)
[2021-04-28] MEDS ORDERED: ONDANSETRON 4 MG/2 ML VIAL ONE (00:21)
== END 2021-04-28 01:01 | disposition home or self-care (01) ==
LOC: JER 18:39 → JERFT 18:39 → JER 04-28 01:01
PROC: 3E033GC Introduction of Other Therapeutic Substance into Peripheral Vein, Percutaneous Approach (ICD-10-PCS; principal; 2021-04-27)
DX: M54.6 Pain in thoracic spine (principal)
CPT/HCPCS: 36415; 71046-TC-FY; 72070-TC-FY; 72129-TC; 80053; 85025; 96374; 99285-25; Q9967

== ENCOUNTER 2021-05-27 04:42 | Day surgery (SDC) | payer OTHER ==
[2021-05-26 09:31] VITALS: BMI 34.2
[2021-05-27] MEDS ORDERED: LIDOCAINE HCL/PF 1% SDV 5ML VIAL ONE (07:24)
[2021-05-27] MEDS ORDERED: BUPIVACAINE HCL/PF 0.75% 10 ML VIAL ONE (07:24)
[2021-05-27] MEDS ORDERED: LIDOCAINE 1% P/F 10 MG/ML VIAL INF ONE ×2 (10:07→10:11)
[2021-05-27] MEDS ORDERED: IOHEXOL 180 MG/1 ML ML IJ ONE ×3 (10:07→10:14)
[2021-05-27] MEDS ORDERED: BUPIVACAINE HCL/PF 0.75% 10 ML VIAL MM ONE ×2 (10:11→10:15)
[2021-05-27 10:41] VITALS: TEMP 97.4
[2021-05-27] MEDS ORDERED: ACETAMINOPHEN 325 MG TABLET (FP) PO ONE (11:00)
[2021-05-27] MEDS ORDERED: ACETAMINOPHEN 325 MG TABLET (FP) ONE (11:04)
[2021-05-27 12:12] VITALS: BP 110/70; PULSE 66
== END 2021-05-27 12:00 | disposition home or self-care (01) ==
LOC: JASU-SURG 04:42
PROVIDERS: ATTEND Pain Medicine Pain Medicine
PROC: BR16YZZ Fluoroscopy of Lumbar Facet Joint(s) using Other Contrast (ICD-10-PCS; 2021-05-27)
PROC: 3E0T3BZ Introduction of Anesthetic Agent into Peripheral Nerves and Plexi, Percutaneous Approach (ICD-10-PCS; principal; 2021-05-27 09:30)
DX: M47.816 Spondylosis without myelopathy or radiculopathy, lumbar region (principal)
CPT/HCPCS: 76000-TC-FY

== ENCOUNTER 2021-06-13 06:20 | Day surgery (SDC) | payer OTHER ==
[2021-06-06 14:25] VITALS: BMI 34.2
[2021-06-13] MEDS ORDERED: SUCCINYLCHOLINE CHLORIDE 200 MG/10 ML SYRINGE ONE (07:18)
[2021-06-13] MEDS ORDERED: PROPOFOL 20 ML ONE ×2 (07:18)
[2021-06-13] MEDS ORDERED: MIDAZOLAM HCL 2 MG/2 ML SINGLE DOSE VIAL ONE ×2 (07:24→07:35)
[2021-06-13] MEDS ORDERED: ROPIVACAINE HCL/PF 100 MG/20 ML VIAL ONE (07:24)
[2021-06-13] MEDS ORDERED: IBUPROFEN 400 MG TABLET (FP) PO PRN (07:32)
[2021-06-13] MEDS ORDERED: ACETAMINOPHEN 325 MG TABLET (FP) PO PRN (07:32)
[2021-06-13] MEDS ORDERED: ceFAZolin SODIUM 1 GM VIAL ONE (07:55)
[2021-06-13] MEDS ORDERED: VANCOMYCIN 1,000 MG VIAL (RESTRICTED TO ID ONLY) ONE (07:55)
[2021-06-13] MEDS ORDERED: DEXAMETHASONE SOD PHOSPHATE 4 MG/1 ML VIAL ONE (08:07)
[2021-06-13] MEDS ORDERED: ONDANSETRON 4 MG/2 ML VIAL ONE (08:07)
[2021-06-13] MEDS ORDERED: oxyCODONE HCL 5 MG TABLET PO PRN ×2 (09:09)
[2021-06-13] MEDS ORDERED: ONDANSETRON 4 MG/2 ML VIAL IVPUSH PRN (09:09)
[2021-06-13] MEDS ORDERED: IBUPROFEN 400 MG TABLET (FP) PO ONE (09:33)
[2021-06-13] MEDS ORDERED: ACETAMINOPHEN 325 MG TABLET (FP) ONE (09:34)
[2021-06-13 10:24] VITALS: TEMP 97.3
[2021-06-13 11:03] VITALS: BP 129/89; PULSE 67
== END 2021-06-13 11:00 | disposition home or self-care (01) ==
LOC: FASU 06:20
PROVIDERS: ATTEND Orthopaedic Surgery
PROC: 0RCJ4ZZ Extirpation of Matter from Right Shoulder Joint, Percutaneous Endoscopic Approach (ICD-10-PCS; 2021-06-13)
PROC: 0RBJ4ZZ Excision of Right Shoulder Joint, Percutaneous Endoscopic Approach (ICD-10-PCS; principal; 2021-06-13 08:13)
DX: T84.84XA Pain due to internal orthopedic prosthetic devices, implants and grafts, initial encounter (principal); Y77.8 Miscellaneous ophthalmic devices associated with adverse incidents, not elsewhere classified; Y92.9 Unspecified place or not applicable; M25.511 Pain in right shoulder; M25.611 Stiffness of right shoulder, not elsewhere classified
CPT/HCPCS: 87070; 87075; 87076; 87205; 88304-TC; 94760

== ENCOUNTER 2021-06-22 15:18 | Emergency (ER) | payer OTHER ==
[2021-06-22 15:23] VITALS: BMI 34.2
[2021-06-22 16:49] LABS: BASO % 0.4 % (0-2.0); EOS % 2.1 % (0-4.5); HEMATOCRIT 34.6 % (32.4-45.2); HEMOGLOBIN 11.4 GM/dL (10.7-15.3); LYMPH % 22.5 % (8-40); MCH 24.9 pg (25.7-33.7); MCHC 33.1 g/dl (32.0-36.0); MEAN CELL VOLUME 75.1 fl (80-96); MEAN PLT VOLUME 8.5 fl (7.5-11.1); MONO % 9.6 % (3.8-10.2); NEUT % 65.4 % (42.8-82.8); PLATELET COUNT 347 10^3/uL (134-434); RDW 18.8 % (11.6-15.6); WHITE BLOOD COUNT 10.1 K/mm3 (4.0-10.0)
[2021-06-22 16:58] LABS: INR 1.15 (0.83-1.09); PROTHROMBIN TIME (PATIENT) 13.3 SEC (9.7-13.0)
[2021-06-22 17:08] LABS: CALCIUM 9.2 mg/dL (8.5-10.1)
[2021-06-22 17:09] LABS: ALBUMIN 3.9 g/dl (3.4-5.0)
[2021-06-22 17:12] LABS: CREATININE 0.9 mg/dL (0.55-1.3)
[2021-06-22 17:14] LABS: BILIRUBIN,TOTAL 0.4 mg/dL (0.2-1); TOT PROT 8.3 g/dl (6.4-8.2)
[2021-06-22 17:36] LABS: PH,URINE 5.5 (5.0-8.0); URINE APPEARANCE CLOUDY; URINE BILIRUBIN NEGATIVE (NEGATIVE); URINE COLOR YELLOW; URINE GLUCOSE (UA) NEGATIVE (NEGATIVE); URINE KETONE TRACE (NEGATIVE); URINE LEUK ESTERASE NEGATIVE (NEGATIVE); URINE NITRITE NEGATIVE (NEGATIVE); URINE PROTEIN NEGATIVE (NEGATIVE); URINE UROBILINOGEN 0.2 mg/dL (0.2-1.0)
[2021-06-22] MEDS ORDERED: diazePAM 2 MG TABLET PO ONE (18:34)
[2021-06-22] MEDS ORDERED: diazePAM 2 MG TABLET ONE (18:38)
[2021-06-22 19:09] LABS: ALBUMIN 3.5 g/dl (3.4-5.0); BLOOD UREA NITROGEN 10.8 mg/dL (7-18); CALCIUM 8.8 mg/dL (8.5-10.1)
[2021-06-22 19:12] LABS: CREATININE 0.8 mg/dL (0.55-1.3)
[2021-06-22 19:14] LABS: BILIRUBIN,TOTAL 0.2 mg/dL (0.2-1); TOT PROT 7.2 g/dl (6.4-8.2)
[2021-06-22 20:40] VITALS: BP 122/68; PULSE 72; TEMP 98.6
== END 2021-06-22 20:40 | disposition home or self-care (01) ==
LOC: JERFT 15:18 → JER 15:18 → JERFT 20:40
DX: M62.830 Muscle spasm of back (principal); M25.511 Pain in right shoulder
CPT/HCPCS: 36415; 71275-TC; 72125-TC; 72128-TC; 73030-TC-RT-FY; 74177-TC; 80053; 81003; 85025; 85610; 87086; 99285-25; Q9967

== ENCOUNTER 2022-12-04 21:06 | Inpatient (IN) | payer OTHER ==
[2022-12-04 23:11] LABS: BASO % 0.6 % (0-2.0); EOS % 2.1 % (0-4.5); HEMATOCRIT 38.8 % (32.4-45.2); HEMOGLOBIN 12.9 GM/dL (10.7-15.3); LYMPH % 28.8 % (8-40); MCH 28.9 pg (25.7-33.7); MCHC 33.2 g/dl (32.0-36.0); MEAN CELL VOLUME 87.1 fl (80-96); MEAN PLT VOLUME 8.6 fl (7.5-11.1); MONO % 8.7 % (3.8-10.2); NEUT % 59.8 % (42.8-82.8); PLATELET COUNT 227 10^3/uL (134-434); RBC 4.46 M/mm3 (3.60-5.2); RDW 15.2 % (11.6-15.6)
[2022-12-04 23:35] LABS: POTASSIUM 4.4 mmol/L (3.5-5.1)
[2022-12-04 23:37] LABS: ALBUMIN 3.4 g/dl (3.4-5.0); BLOOD UREA NITROGEN 9.5 mg/dL (7-18)
[2022-12-04 23:40] LABS: CREATININE 0.8 mg/dL (0.55-1.3)
[2022-12-04 23:42] LABS: TOT PROT 7.8 g/dl (6.4-8.2)
[2022-12-04 23:56] LABS: BILIRUBIN,TOTAL 0.2 mg/dL (0.2-1)
[2022-12-05] MEDS ORDERED: ACETAMINOPHEN 1000 MG/100 ML BAG IVPB ONE (04:11)
[2022-12-05] MEDS ORDERED: KETOROLAC TROMETHAMINE 15 MG/ML VIAL IVPUSH PRN (04:31)
[2022-12-05 06:13] LABS: BASO % 0.7 % (0-2.0); EOS % 2.5 % (0-4.5); HEMATOCRIT 40.3 % (32.4-45.2); HEMOGLOBIN 12.9 GM/dL (10.7-15.3); LYMPH % 30.7 % (8-40); MCH 28.6 pg (25.7-33.7); MCHC 32.1 g/dl (32.0-36.0); MEAN CELL VOLUME 89.2 fl (80-96); MEAN PLT VOLUME 8.8 fl (7.5-11.1); MONO % 7.8 % (3.8-10.2); NEUT % 58.3 % (42.8-82.8); PLATELET COUNT 220 10^3/uL (134-434); RBC 4.52 M/mm3 (3.60-5.2); RDW 14.9 % (11.6-15.6); WHITE BLOOD COUNT 8.6 K/mm3 (4.0-10.0)
[2022-12-05 06:36] LABS: ALBUMIN 3.8 g/dl (3.4-5.0); CALCIUM 9.2 mg/dL (8.5-10.1); MAGNESIUM 2.1 mg/dL (1.8-2.4)
[2022-12-05 06:39] LABS: CREATININE 0.8 mg/dL (0.55-1.3); PHOSPHOROUS 4.2 mg/dL (2.5-4.9)
[2022-12-05 06:41] LABS: BILIRUBIN,TOTAL 0.2 mg/dL (0.2-1); TOT PROT 8.4 g/dl (6.4-8.2)
[2022-12-05] MEDS: SODIUM CHLORIDE 1,000 ML IV SCH ×2 (08:27→18:56)
[2022-12-05] MEDS: INSULIN SLIDING SCALE (NOVOLOG) 1 VIAL SQ SCH ×4 (08:33→22:44)
[2022-12-05] MEDS ORDERED: ENOXAPARIN NA (PORCINE) 40 MG/0.4 ML DISP.SYRIN SQ SCH (10:00)
[2022-12-05] MEDS ORDERED: DEXAMETHASONE SOD PHOSPHATE 4 MG/1 ML VIAL IVPUSH ONE (12:45)
[2022-12-05] MEDS: FAMOTIDINE 20 MG TABLET PO SCH (13:29)
[2022-12-05] MEDS: NAPROXEN 500 MG TABLET PO SCH ×2 (13:29→22:40)
[2022-12-05] MEDS ORDERED: ACETAMINOPHEN 1000 MG/100 ML BAG IVPB PRN (16:52)
[2022-12-06] MEDS: SODIUM CHLORIDE 1,000 ML IV SCH (04:11)
[2022-12-06] MEDS ORDERED: ONDANSETRON 4 MG/2 ML VIAL IVPUSH ONE (05:09)
[2022-12-06] MEDS: INSULIN SLIDING SCALE (NOVOLOG) 1 VIAL SQ SCH ×2 (06:35→11:31)
[2022-12-06] MEDS: FAMOTIDINE 20 MG TABLET PO SCH (10:03)
[2022-12-06] MEDS: NAPROXEN 500 MG TABLET PO SCH ×2 (10:03→21:55)
[2022-12-06] MEDS: LEVOTHYROXINE SODIUM 100 MCG 5 ML VIAL IVPUSH SCH (10:03)
[2022-12-06] MEDS: MELATONIN 5 MG TABLETS PO SCH ×2 (21:55→23:53)
[2022-12-07] MEDS: LEVOTHYROXINE SODIUM 100 MCG 5 ML VIAL IVPUSH SCH (10:35)
[2022-12-07] MEDS: NAPROXEN 500 MG TABLET PO SCH ×2 (10:37→22:03)
[2022-12-07] MEDS: FAMOTIDINE 20 MG TABLET PO SCH (10:37)
[2022-12-07 15:04] VITALS: BMI 32.6
[2022-12-07 16:12] VITALS: RESP 18
[2022-12-07] MEDS ORDERED: ALBUTEROL SO4 HFA INHALER IH PRN (17:27)
[2022-12-07] MEDS: MELATONIN 5 MG TABLETS PO SCH (22:03)
[2022-12-07] MEDS ORDERED: ZOLPIDEM TARTRATE 5 MG TABLET PO ONE (22:21)
[2022-12-08] MEDS: LEVOTHYROXINE NA 150 MCG TABLET PO SCH (07:08)
[2022-12-08] MEDS ORDERED: RIFAXIMIN 550 MG TABLET PO SCH (10:00)
[2022-12-08] MEDS: FAMOTIDINE 20 MG TABLET PO SCH (10:02)
[2022-12-08] MEDS: NAPROXEN 500 MG TABLET PO SCH (10:02)
[2022-12-08] MEDS: LEVOTHYROXINE SODIUM 100 MCG 5 ML VIAL IVPUSH SCH (10:03)
[2022-12-08] MEDS: POLYETHYLENE GLYCOL (HEALTHYLAX) 3350 17 GM PACKET PO SCH ×2 (12:38→22:40)
[2022-12-08] MEDS: RIFAXIMIN 550 MG TABLET PO SCH ×2 (14:27→22:38)
[2022-12-08 15:07] LABS: THYROID STIM IMMUNOGLOBULIN 0.39 IU/L (0.00-0.55)
[2022-12-08 16:19] LABS: BASO % 0.7 % (0-2.0); EOS % 2.9 % (0-4.5); HEMATOCRIT 40.1 % (32.4-45.2); HEMOGLOBIN 12.9 GM/dL (10.7-15.3); LYMPH % 42.9 % (8-40); MCH 28.5 pg (25.7-33.7); MCHC 32.2 g/dl (32.0-36.0); MEAN CELL VOLUME 88.5 fl (80-96); MEAN PLT VOLUME 9.3 fl (7.5-11.1); MONO % 6.7 % (3.8-10.2); NEUT % 46.8 % (42.8-82.8); PLATELET COUNT 243 10^3/uL (134-434); RBC 4.53 M/mm3 (3.60-5.2); RDW 15.1 % (11.6-15.6)
[2022-12-08 16:49] LABS: ALBUMIN 3.7 g/dl (3.4-5.0); BLOOD UREA NITROGEN 8.1 mg/dL (7-18); CALCIUM 8.6 mg/dL (8.5-10.1); POTASSIUM 4.4 mmol/L (3.5-5.1)
[2022-12-08 16:52] LABS: CREATININE 0.8 mg/dL (0.55-1.3)
[2022-12-08 16:53] LABS: BILIRUBIN,TOTAL 0.4 mg/dL (0.2-1); TOT PROT 7.3 g/dl (6.4-8.2)
[2022-12-08 16:57] LABS: N-TERMINAL BNP 32.2 pg/ml (5-125)
[2022-12-08] MEDS ORDERED: ROSUVASTATIN CA 20 MG TABLET PO SCH (22:00)
[2022-12-08] MEDS ORDERED: HYDROCORTISONE ACETATE 25 MG/SUPP.RECT RC SCH (22:00)
[2022-12-08] MEDS ORDERED: MELATONIN 5 MG TABLETS PO SCH (22:00)
[2022-12-08] MEDS ORDERED: ZOLPIDEM TARTRATE 5 MG TABLET PO ONE (22:11)
[2022-12-09] MEDS: RIFAXIMIN 550 MG TABLET PO SCH ×2 (06:51→13:47)
[2022-12-09] MEDS: LEVOTHYROXINE NA 150 MCG TABLET PO SCH (06:51)
[2022-12-09] MEDS: ENOXAPARIN NA (PORCINE) 40 MG/0.4 ML DISP.SYRIN SQ SCH ×2 (09:19→09:33)
[2022-12-09] MEDS: POLYETHYLENE GLYCOL (HEALTHYLAX) 3350 17 GM PACKET PO SCH (09:19)
[2022-12-09] MEDS ORDERED: PANTOPRAZOLE 40 MG TABLET PO SCH (10:00)
[2022-12-09 11:19] LABS: HEMATOCRIT 41.9 % (32.4-45.2); HEMOGLOBIN 13.8 GM/dL (10.7-15.3); MCH 28.8 pg (25.7-33.7); MEAN CELL VOLUME 87.4 fl (80-96); MEAN PLT VOLUME 8.1 fl (7.5-11.1); PLATELET COUNT 230 10^3/uL (134-434); RDW 14.8 % (11.6-15.6); WHITE BLOOD COUNT 6.7 K/mm3 (4.0-10.0)
[2022-12-09 16:02] VITALS: BP 115/84; PULSE 81; TEMP 98.6
== END 2022-12-09 17:56 | disposition home or self-care (01) | DRG 424 ==
LOC: JERFT 21:06 → OBSVTOIN 12-05 02:46 → JERBED 12-05 02:46 → J5S 12-05 06:31
PROVIDERS: ADMIT Internal Medicine; ATTEND Internal Medicine
DX: E01.0 Iodine-deficiency related diffuse (endemic) goiter (principal); R13.10 Dysphagia, unspecified; K62.5 Hemorrhage of anus and rectum; E78.5 Hyperlipidemia, unspecified; K64.8 Other hemorrhoids; G47.30 Sleep apnea, unspecified; E11.9 Type 2 diabetes mellitus without complications; G43.909 Migraine, unspecified, not intractable, without status migrainosus
CPT/HCPCS: 0241U-QW; 36415; 70490-TC; 71250-TC; 74230-TC-FY; 80053; 80061; 82962; 83036; 83735; 83880; 84100; 84439; 84443; 84445; 85025; 85027; 85651; 86140; 86376; 86800; 87070; 92611-GN; 93005; 93010; 93306-TC; 99285-25

== ENCOUNTER 2023-08-30 08:18 | Emergency (ER) | payer OTHER ==
[2023-08-30 08:31] VITALS: RESP 18; TEMP 98; BMI 24.3
[2023-08-30] MEDS ORDERED: ALBUTEROL SO4 2.5/IPRATROPIUM 0.5 INH SOL 3 ML VIAL.NEB. NEB ONE (09:35)
[2023-08-30] MEDS ORDERED: predniSONE 20 MG TABLET (UD) ONE (09:35)
[2023-08-30] MEDS ORDERED: LIDOCAINE 4% PATCH TP ONE (09:35)
[2023-08-30] MEDS ORDERED: ACETAMINOPHEN 325 MG TABLET (FP) ONE (09:36)
[2023-08-30] MEDS: predniSONE 20 MG TABLET (UD) PO ONE (09:46)
[2023-08-30] MEDS: ALBUTEROL SO4 2.5/IPRATROPIUM 0.5 INH SOL 3 ML VIAL.NEB. NEB SCH (09:47)
[2023-08-30] MEDS: ACETAMINOPHEN 325 MG TABLET (FP) PO ONE (09:47)
[2023-08-30] MEDS: LIDOCAINE 4% PATCH TP ONE (09:47)
[2023-08-30 11:28] LABS: BASO % 0.5 % (0-2.0); EOS % 1.5 % (0-4.5); HEMATOCRIT 39.6 % (32.4-45.2); HEMOGLOBIN 13.3 GM/dL (10.7-15.3); MCH 29.3 pg (25.7-33.7); MCHC 33.6 g/dl (32.0-36.0); MEAN PLT VOLUME 8.2 fl (7.5-11.1); MONO % 6.8 % (3.8-10.2); NEUT % 63.2 % (42.8-82.8); PLATELET COUNT 237 10^3/uL (134-434); RBC 4.55 M/mm3 (3.60-5.2); WHITE BLOOD COUNT 9.4 K/mm3 (4.0-10.0)
[2023-08-30 11:45] LABS: POTASSIUM 3.5 mmol/L (3.5-5.1)
[2023-08-30 11:46] LABS: CALCIUM 9.1 mg/dL (8.5-10.1)
[2023-08-30 11:47] LABS: BLOOD UREA NITROGEN 8.1 mg/dL (7-18)
[2023-08-30 11:50] LABS: CREATININE 0.8 mg/dL (0.55-1.3)
[2023-08-30 14:01] VITALS: BP 120/86; PULSE 89
[2023-08-30] MEDS ORDERED: LIDOCAINE PATCH REMOVAL MC SCH (22:00)
== END 2023-08-30 14:19 | disposition home or self-care (01) ==
LOC: JER 08:18
PROC: 3E0F7GC Introduction of Other Therapeutic Substance into Respiratory Tract, Via Natural or Artificial Opening (ICD-10-PCS; principal; 2023-08-30)
DX: R05.9 Cough, unspecified (principal); R06.02 Shortness of breath; R07.9 Chest pain, unspecified; J45.901 Unspecified asthma with (acute) exacerbation; Z20.822 Contact with and (suspected) exposure to COVID-19
CPT/HCPCS: 0241U-QW; 36415; 71046-TC-FY; 80048; 84484; 85025; 93005; 93010; 93971-TC; 99285-25

== ENCOUNTER 2023-09-03 17:45 | Emergency (ER) | payer OTHER ==
[2023-09-03] MEDS: ALBUTEROL SO4 2.5/IPRATROPIUM 0.5 INH SOL 3 ML VIAL.NEB. NEB SCH (17:45)
[2023-09-03 17:52] VITALS: RESP 18; TEMP 98.1; BMI 33.8
[2023-09-03] MEDS ORDERED: methylPREDNISolone NA SUCC 125 MG/2 ML VIAL ONE (18:23)
[2023-09-03] MEDS ORDERED: ALBUTEROL SO4 2.5/IPRATROPIUM 0.5 INH SOL 3 ML VIAL.NEB. NEB ONE (18:27)
[2023-09-03] MEDS ORDERED: MAGNESIUM SULFATE IN WATER 2 GM/50 ML IVPB IVPB ONE (18:45)
[2023-09-03] MEDS: methylPREDNISolone NA SUCC 125 MG/2 ML VIAL IVPUSH ONE (18:54)
[2023-09-03] MEDS: MAGNESIUM SULFATE IN WATER 2 GM/50 ML IVPB IVPB ONE (18:54)
[2023-09-03 19:15] LABS: BASO % 0.5 % (0-2.0); EOS % 4.1 % (0-4.5); HEMOGLOBIN 13.6 GM/dL (10.7-15.3); LYMPH % 42.2 % (8-40); MCH 28.9 pg (25.7-33.7); MCHC 33.2 g/dl (32.0-36.0); MEAN PLT VOLUME 8.7 fl (7.5-11.1); NEUT % 46.2 % (42.8-82.8); PLATELET COUNT 318 10^3/uL (134-434); RBC 4.71 M/mm3 (3.60-5.2); RDW 14.2 % (11.6-15.6); WHITE BLOOD COUNT 12.1 K/mm3 (4.0-10.0)
[2023-09-03 19:22] LABS: CHLORIDE 102 mmol/L (98-107); SODIUM 133 mmol/L (136-145)
[2023-09-03 19:26] LABS: CALCIUM 9.8 mg/dL (8.5-10.1); GLUCOSE,RANDOM 103 mg/dL (74-106)
[2023-09-03 19:27] LABS: ALBUMIN 3.7 g/dl (3.4-5.0); BLOOD UREA NITROGEN 7.7 mg/dL (7-18); CO2 28 mmol/L (21-32)
[2023-09-03 19:28] LABS: INR 1.06 (0.83-1.09)
[2023-09-03 19:30] LABS: CREATININE 1.1 mg/dL (0.55-1.3); SGOT/AST 68 U/L (15-37)
[2023-09-03 19:31] LABS: ACTIVATED PTT 32.5 SECONDS (25.2-36.5); BILIRUBIN,TOTAL 0.3 mg/dL (0.2-1); TOT PROT 8.8 g/dl (6.4-8.2)
[2023-09-03 19:33] LABS: ALK PHOS 133 U/L (45-117)
[2023-09-03 19:34] LABS: ANION GAP 3 mmol/L (4-13); POTASSIUM 6.3 mmol/L (3.5-5.1); SGPT/ALT 26 U/L (13-61)
[2023-09-03 19:52] VITALS: BP 123/88; PULSE 75
== END 2023-09-03 20:17 | disposition home or self-care (01) ==
LOC: JER 17:45
PROC: 3E033GC Introduction of Other Therapeutic Substance into Peripheral Vein, Percutaneous Approach (ICD-10-PCS; principal; 2023-09-03)
PROC: 3E033GC Introduction of Other Therapeutic Substance into Peripheral Vein, Percutaneous Approach (ICD-10-PCS; 2023-09-03)
PROC: 3E0F7GC Introduction of Other Therapeutic Substance into Respiratory Tract, Via Natural or Artificial Opening (ICD-10-PCS; 2023-09-03)
DX: J45.901 Unspecified asthma with (acute) exacerbation (principal); R05.1 Acute cough; R06.02 Shortness of breath; R07.2 Precordial pain; R11.10 Vomiting, unspecified
CPT/HCPCS: 36415; 71046-TC-FY; 80053; 84484; 85025; 85610; 85730; 93005; 93010; 99285-25

== ENCOUNTER 2023-12-02 13:58 | Emergency (ER) | payer OTHER ==
[2023-12-02 14:27] VITALS: BP 125/86; PULSE 68; RESP 18; TEMP 97.9; BMI 29.4
[2023-12-02] MEDS ORDERED: LIDOCAINE 4% PATCH TP ONE (14:36)
[2023-12-02] MEDS ORDERED: IBUPROFEN 400 MG TABLET (FP) PO ONE (14:36)
[2023-12-02] MEDS: LIDOCAINE 4% PATCH TP ONE (14:42)
[2023-12-02] MEDS: IBUPROFEN 400 MG TABLET (FP) PO ONE (14:42)
[2023-12-02] MEDS: LIDOCAINE 5% TOPICAL PATCH TP ONE (14:43)
[2023-12-02] MEDS ORDERED: LIDOCAINE PATCH REMOVAL MC SCH (22:00)
== END 2023-12-02 16:45 | disposition home or self-care (01) ==
LOC: JERFT 13:58
DX: S89.92XA Unspecified injury of left lower leg, initial encounter (principal); X50.1XXA Overexertion from prolonged static or awkward postures, initial encounter
CPT/HCPCS: 73562-TC-LT-FY; 99283-25

== ENCOUNTER 2024-01-20 18:28 | Emergency (ER) | payer OTHER ==
[2024-01-20 18:39] VITALS: BP 114/78; PULSE 71; RESP 18; TEMP 98.4; BMI 30.2
[2024-01-20] MEDS ORDERED: KETOROLAC TROMETHAMINE 30 MG/1 ML VIAL ONE (20:00)
[2024-01-20] MEDS ORDERED: ONDANSETRON *ODT* 4 MG TABLET ONE (20:00)
[2024-01-20] MEDS ORDERED: LIDOCAINE 5% TOPICAL PATCH ONE (20:00)
[2024-01-20] MEDS: LIDOCAINE 5% TOPICAL PATCH TP ONE (20:30)
[2024-01-20] MEDS: KETOROLAC TROMETHAMINE 30 MG/1 ML VIAL IM ONE (20:31)
[2024-01-20] MEDS: ONDANSETRON 4 MG TABLET PO ONE (20:32)
[2024-01-20] MEDS ORDERED: LIDOCAINE PATCH REMOVAL MC SCH (22:00)
== END 2024-01-20 21:26 | disposition home or self-care (01) ==
LOC: JER 18:28
PROC: 3E0133Z Introduction of Anti-inflammatory into Subcutaneous Tissue, Percutaneous Approach (ICD-10-PCS; principal; 2024-01-20)
DX: M79.662 Pain in left lower leg (principal); M25.472 Effusion, left ankle; R11.0 Nausea; M25.562 Pain in left knee; R63.0 Anorexia
CPT/HCPCS: 93970-TC; 99284-25

== ENCOUNTER 2024-10-01 22:38 | Emergency (ER) | payer OTHER ==
[2024-10-01 22:44] VITALS: TEMP 99.5; BMI 30.5
[2024-10-01] MEDS ORDERED: ACETAMINOPHEN INJECTION 100 ML ONE (23:24)
[2024-10-01] MEDS: ACETAMINOPHEN 1000 MG/100 ML BAG IVPB ONE (23:34)
[2024-10-01] MEDS: SODIUM CHLORIDE 0.9% 500 ML INFUS.BAG IV ONE (23:34)
[2024-10-01 23:37] LABS: ABSOLUTE IMMATURE GRANULOCYTES 0.06 x10^3/uL (0.0-0.031); BASOPHILS # 0.07 x10^3/uL (0.01-0.08); EOSINOPHIL % 0.4 % (0.7-5.8); EOSINOPHILS # 0.07 x10^3/uL (0.04-0.36); HEMATOCRIT 42.1 % (34.1-44.9); HEMOGLOBIN 13.5 g/dL (11.2-15.7); MCHC 32.1 g/dl (32.2-35.5); MEAN CELL VOLUME 89.8 fl (79.4-94.8); MEAN PLT VOLUME 9.7 fl (9.4-12.3); MONOCYTE # 1.14 x10^3/uL (0.24-0.86); MONOCYTE % 6.6 % (4.7-12.5); PLATELET COUNT 204 x10^3/uL (182-369); RDW 14.1 % (12.3-16.6); WHITE BLOOD COUNT 17.3 x10^3/uL (3.98-10.04)
[2024-10-02 00:01] LABS: POTASSIUM 5.7 mmol/L (3.5-5.1)
[2024-10-02 00:02] LABS: THROAT:GRP A STREP NOT DETECTED (NOTDETECTED)
[2024-10-02 00:03] LABS: CALCIUM 9.5 mg/dL (8.5-10.1)
[2024-10-02 00:04] LABS: ALBUMIN 3.6 g/dl (3.4-5.0); BLOOD UREA NITROGEN 8.4 mg/dL (7-18)
[2024-10-02 00:07] LABS: CREATININE 0.9 mg/dL (0.55-1.3)
[2024-10-02 00:08] LABS: BILIRUBIN,TOTAL 0.5 mg/dL (0.2-1); TOT PROT 8.2 g/dl (6.4-8.2)
[2024-10-02 00:37] LABS: EPI CELLS 8 /uL (0-25.1); HYALINE CASTS 0 /uL (0-3.1); URINE APPEARANCE CLEAR; URINE BACTERIA 22 /uL (0-1359); URINE BILIRUBIN NEGATIVE (NEGATIVE); URINE COLOR YELLOW; URINE GLUCOSE (UA) NEGATIVE (NEGATIVE); URINE KETONE NEGATIVE (NEGATIVE); URINE LEUK ESTERASE TRACE (NEGATIVE); URINE NITRITE NEGATIVE (NEGATIVE); URINE PROTEIN NEGATIVE (NEGATIVE); URINE RBC 24 /uL (0-23.9); URINE UROBILINOGEN 0.2 mg/dL (0.2-1.0); URINE WBC 18 /uL (0-25.8)
[2024-10-02 01:44] VITALS: BP 124/85; PULSE 82; RESP 19
== END 2024-10-02 02:15 | disposition home or self-care (01) ==
LOC: JER 22:38
PROC: 3E033NZ Introduction of Analgesics, Hypnotics, Sedatives into Peripheral Vein, Percutaneous Approach (ICD-10-PCS; principal; 2024-10-01)
DX: R50.9 Fever, unspecified (principal); R06.02 Shortness of breath; R05.9 Cough, unspecified; M79.10 Myalgia, unspecified site; R63.8 Other symptoms and signs concerning food and fluid intake; R13.10 Dysphagia, unspecified
CPT/HCPCS: 0241U-QW; 36415; 71046-TC-FY; 80053; 81003; 85025; 87086; 87476; 87651; 99284-25